=== PATIENT | female | born 1945 | race Caucasian/White ===

== ENCOUNTER 2017-01-29 08:54 | Inpatient (IN) | payer OTHER ==
[~2017-01-29] VITALS: Ht 162.6 cm; Wt 97.4 kg
[~2017-01-29 08:54] MED LIST: ASPI1TAB83 PO; CIPR-255 PO; FURO-85 PO; GLIP-172 PO; METF1000 PO; SIMV20TA2 PO
--- NOTE | 2017-01-29 09:50 | DIAGNOSTIC IMAGING REPORT ---
CT SCAN OF THE BRAIN WITHOUT IV CONTRAST CLINICAL HISTORY: Change in mental status. COMPARISON STUDY: No priors. TECHNIQUE: Unenhanced axial CT scan of the brain is performed from the vertex to the skull base. CT DOSE: 537.48 mGy.cm FINDINGS: Brain parenchyma: There are age-related involutional changes noting mild subcortical and periventricular microangiopathic change. There is mild right temporal encephalomalacia suggest a remote insult. There is no hemorrhage, mass effect, or evidence of acute territorial ischemia by CT criteria. Joy-white matter is preserved. No extra-axial fluid collection is seen. Ventricles, sulci, cisterns: Prominent secondary to involutional change. Intracranial vasculature: There is atherosclerotic calcification of the cavernous carotid arteries. Calvarium: Unremarkable. Sinuses and mastoids: The visualized paranasal sinuses are clear. There is a large right mastoid effusion. Findings suggest previous right mastoid surgery. The left mastoid air cells are well pneumatized. Orbits: The bony orbits are grossly intact. IMPRESSION: There is no hemorrhage, mass effect, or evidence of acute territorial ischemia by CT criteria. Electronically signed by: Ketan Carlson M.D. 01/29/2017 9:49 AM Dictated Date/Time: 01/29/2017 9:41 AM
--- NOTE | 2017-01-29 09:52 | DIAGNOSTIC IMAGING REPORT ---
CHEST ONE VIEW PORTABLE CLINICAL HISTORY: Altered mental status. COMPARISON STUDY: Chest radiograph August 06, 2013. FINDINGS: Lung volumes are normal. There is no pneumothorax or pleural effusion. Cardiomegaly is unchanged. Linear left lung opacity favors atelectasis. There is no evidence of pulmonary edema. There is no consolidation to suggest pneumonia. IMPRESSION: 1. No acute cardiopulmonary findings. 2. Linear left lower lung opacity suggestive of atelectasis. 3. Stable cardiomegaly without evidence of pulmonary edema. Electronically signed by: Carlos Lind M.D. 01/29/2017 9:51 AM Dictated Date/Time: 01/29/2017 9:50 AM
[2017-01-29 10:02] LABS: URINE APPEARANCE CLEAR (CLEAR); URINE BILIRUBIN NEG (NEG); URINE COLOR YELLOW; URINE EPITHELIAL CELL AUTO >30 /lpf (0-5); URINE NITRITE NEG (NEG); URINE SPECIFIC GRAVITY 1.004 (1.000-1.030); UROBILINOGEN NEG (NEG); ZZUR CULT IF INDIC CLEAN CATCH NO
[2017-01-29 10:04] LABS: MANUAL MICROSCOPIC REQUIRED? NO; REVIEW REQ? NO
[2017-01-29] MEDS ORDERED: SITA100T3 PO (10:07)
[2017-01-29] MEDS ORDERED: GLIP5TAB11 PO (10:07)
[2017-01-29] MEDS ORDERED: ATOR-22 PO (10:07)
[2017-01-29 10:24] LABS: BASO % 0.2 %; BASO ABS # 0.02 K/uL (0-0.2); COMPLETE YES; EOS % 0.9 %; HEMATOCRIT 39.9 % (37-47); IG% 0.2 %; LYMPH % 13.6 %; LYMPH ABS # 1.35 K/uL (1.2-3.4); MEAN CELL VOLUME 90.1 fL (80-100); MEAN CORPUSCULAR HEMOGLOBIN 30.5 pg (25-34); MEAN CORPUSCULAR HGB CONC 33.8 g/dl (32-36); MEAN PLATELET VOLUME 8.9 fL (7.4-10.4); MONO % 5.5 %; NEUT % 79.6 %; PLATELET COUNT 347 K/uL (130-400); RED BLOOD COUNT 4.43 M/uL (4.2-5.4)
[2017-01-29 10:36] LABS: PARTIAL THROMBOPLASTIN RATIO 1.1; PROTHROMBIN TIME (PATIENT) 10.7 SECONDS (9.0-12.0)
[2017-01-29 10:40] LABS: BENZODIAZEPINE, URINE NEG (NEG); COCAINE,URINE NEG (NEG); PHENCYCLIDINE, URINE NEG (NEG)
[2017-01-29 10:52] LABS: BUN/CREATININE RATIO 10.8 (10-20); CALCIUM 8.8 mg/dl (8.5-10.1); CREATININE 0.84 mg/dl (0.60-1.20); POTASSIUM 3.7 mmol/L (3.5-5.1)
[2017-01-29 11:03] LABS: ALB/GLOB RATIO 0.8 (0.9-2); THYROID STIMULATING HORMONE 0.854 uIu/ml (0.300-4.500)
--- NOTE | 2017-01-29 11:29 | EMERGENCY ROOM VISIT NOTE ---
History Report prepared by Deniseibakira: Ayse Roman Under the Supervision of: Dr. Brooke Mccord M.D. First contact with patient: 10:27 Chief Complaint: ALTERED MENTAL STATUS Stated Complaint: ALTERED MENTAL STATUS Nursing Triage Summary: Pt arrives ALS from home Family called EMS because patient wsa acting strange this morning. Pt was combative and would not let family check her BSG When medics arrived on scene, pt was acting appropriately, BSG was 228 Pt CAOx4 on arrival to ED. Pt reports she had right frontal headache last night and this morning, but headache has since gone away. History of Present Illness The patient is a 71 year old female who presents to the Emergency Room with complaints of altered mental status that began last night. Per patient's , the patient was seeing things like curtains moving and lights in the floor that her did not see.The patient has been staring blankly into space and not listening this morning. She has never acted that way in the past. This morning she also was pouring her tea and would not stop pouring despite the cup overflowing. She does not have vision loss compared to baseline. She does not have a history of seizures. The patient complains that she has had sharp pain around her right confucianism for the past 3 days. Today, the pain woke her up from her sleep. She had some GI symptoms including vomiting and diarrhea yesterday and the day before, but has not had any symptoms today. She had a fever yesterday which has resolved. Her family has also recently been ill with GI symptoms. Denies numbness, weakness, or other complaints. Past medical history includes type 2 diabetes for which she is on glipizide and metformin. Source of History: patient Onset: today Position: other (global) Quality: other (altered mental status) Timing: other Associated Symptoms: + diarrhea (resolved), + fevers (resolved), + headache (right confucianism pain), + vomiting (resolved), No numbness, No weakness Review of Systems See HPI for pertinent positives & negatives. A total of 10 systems reviewed and were otherwise negative. Past Medical & Surgical Medical Problems: (1) Altered mental status (2) DM (diabetes mellitus) (3) Headache Family History Cancer Diabetes mellitus Social History Smoking Status: Never Smoker Alcohol Use: none Drug Use: none Marital Status: Housing Status: lives with family Occupation Status: retired Current/Historical Medications Scheduled Aspirin (Aspirin), 81 MG PO DAILY Glipizide (Glucotrol), 5 MG PO DAILY Metformin Hcl (Glucophage), 1,000 MG PO BID Simvastatin (Zocor), 20 MG PO QPM Allergies Coded Allergies: No Known Allergies (Unverified , 01/29/17) Physical Exam Vital Signs Date Time Temp Pulse Resp B/P Pulse Ox O2 Delivery O2 Flow Rate FiO2 01/29/17 14:39 80 18 149/75 96 Room Air 01/29/17 13:01 77 18 178/108 98 Room Air 01/29/17 11:05 79 18 160/95 98 Room Air 01/29/17 10:53 74 01/29/17 09:03 37.6 79 20 179/61 95 Room Air Physical Exam Vital signs reviewed. Low-grade fever noted. General: Well-appearing 71 year old female, obese, in no significant distress. HEENT: No scleral icterus, PERRLA, neck supple. Atraumatic. Cardiovascular: Regular rate and rhythm, no extra sounds. Pulmonary: Clear to auscultation bilaterally, normal work of breathing. Abdomen: Soft, nontender, nondistended, positive bowel sounds. Musculoskeletal: Atraumatic, no peripheral edema. Neurologic: Patient awake alert and oriented x 3, full strength in all 4 extremities. Cranial nerves 2 through 12 grossly intact. Skin: Warm, dry, no rash Medical Decision & Procedures ER Provider Diagnostic Interpretation: Radiology results as stated below per my review and radiologist interpretation: CHEST ONE VIEW PORTABLE CLINICAL HISTORY: Altered mental status. COMPARISON STUDY: Chest radiograph August 06, 2013. FINDINGS: Lung volumes are normal. There is no pneumothorax or pleural effusion. Cardiomegaly is unchanged. Linear left lung opacity favors atelectasis. There is no evidence of pulmonary edema. There is no consolidation to suggest pneumonia. IMPRESSION: 1. No acute cardiopulmonary findings. 2. Linear left lower lung opacity suggestive of atelectasis. 3. Stable cardiomegaly without evidence of pulmonary edema. Electronically signed by: Carlos Lind M.D. 01/29/2017 9:51 AM Dictated Date/Time: 01/29/2017 9:[address] SCAN OF THE BRAIN WITHOUT IV CONTRAST CLINICAL HISTORY: Change in mental status. COMPARISON STUDY: No priors. TECHNIQUE: Unenhanced axial CT scan of the brain is performed from the vertex to the skull base. CT DOSE: 537.48 mGy.cm FINDINGS: Brain parenchyma: There are age-related involutional changes noting mild subcortical and periventricular microangiopathic change. There is mild right temporal encephalomalacia suggest a remote insult. There is no hemorrhage, mass effect, or evidence of acute territorial ischemia by CT criteria. Joy-white matter is preserved. No extra-axial fluid collection is seen. Ventricles, sulci, cisterns: Prominent secondary to involutional change. Intracranial vasculature: There is atherosclerotic calcification of the cavernous carotid arteries. Calvarium: Unremarkable. Sinuses and mastoids: The visualized paranasal sinuses are clear. There is a large right mastoid effusion. Findings suggest previous right mastoid surgery. The left mastoid air cells are well pneumatized. Orbits: The bony orbits are grossly intact. IMPRESSION: There is no hemorrhage, mass effect, or evidence of acute territorial ischemia by CT criteria. Electronically signed by: Ketan Carlson M.D. 01/29/2017 9:49 AM Dictated Date/Time: 01/29/2017 9:41 AM Laboratory Results 01/29/17 10:00 Red Blood Count 4.43, Mean Corpuscular Volume 90.1, Mean Corpuscular Hemoglobin 30.5, Mean Corpuscular Hemoglobin Concent 33.8, Mean Platelet Volume 8.9, Neutrophils (%) (Auto) 79.6, Lymphocytes (%) (Auto) 13.6, Monocytes (%) (Auto) 5.5, Eosinophils (%) (Auto) 0.9, Basophils (%) (Auto) 0.2, Neutrophils # (Auto) 7.88, Lymphocytes # (Auto) 1.35, Monocytes # (Auto) 0.54, Eosinophils # (Auto) 0.09, Basophils # (Auto) 0.02 01/29/17 10:00 Test 01/29/17 09:45 01/29/17 09:50 01/29/17 10:00 01/29/17 11:50 Bedside Glucose 136 mg/dl (70-90) Urine Color YELLOW Urine Appearance CLEAR (CLEAR) Urine pH 5.0 (4.5-7.5) Urine Specific Simon 1.004 (1.000-1.030) Urine Protein NEG (NEG) Urine Glucose (UA) NEG (NEG) Urine Ketones NEG (NEG) Urine Occult Blood NEG (NEG) Urine Nitrite NEG (NEG) Urine Bilirubin NEG (NEG) Urine Urobilinogen NEG (NEG) Urine Leukocyte Esterase TRACE (NEG) Urine WBC (Auto) 1-5 /hpf (0-5) Urine RBC (Auto) 0-4 /hpf (0-4) Urine Hyaline Casts (Auto) 1-5 /lpf (0-5) Urine Epithelial Cells (Auto) >30 /lpf (0-5) Urine Bacteria (Auto) NEG (NEG) Urine Opiates Screen NEG (NEG) Urine Methadone, Qualitative NEG (NEG) Urine Barbiturates NEG (NEG) Urine Phencyclidine (PCP) Level NEG (NEG) Ur Amphetamine/Methamphetamine NEG (NEG) MDMA (Ecstasy) Screen NEG (NEG) Urine Benzodiazepines Screen NEG (NEG) Urine Cocaine Metabolite NEG (NEG) Urine Marijuana (THC) NEG (NEG) White Blood Count 9.90 K/uL (4.8-10.8) Red Blood Count 4.43 M/uL (4.2-5.4) Hemoglobin 13.5 g/dL (12.0-16.0) Hematocrit 39.9 % (37-47) Mean Corpuscular Volume 90.1 fL (80-100) Mean Corpuscular Hemoglobin 30.5 pg (25-34) Mean Corpuscular Hemoglobin Concent 33.8 g/dl (32-36) Platelet Count 347 K/uL (130-400) Mean Platelet Volume 8.9 fL (7.4-10.4) Neutrophils (%) (Auto) 79.6 % Lymphocytes (%) (Auto) 13.6 % Monocytes (%) (Auto) 5.5 % Eosinophils (%) (Auto) 0.9 % Basophils (%) (Auto) 0.2 % Neutrophils # (Auto) 7.88 K/uL (1.4-6.5) Lymphocytes # (Auto) 1.35 K/uL (1.2-3.4) Monocytes # (Auto) 0.54 K/uL (0.11-0.59) Eosinophils # (Auto) 0.09 K/uL (0-0.5) Basophils # (Auto) 0.02 K/uL (0-0.2) RDW Standard Deviation 47.9 fL (36.4-46.3) RDW Coefficient of Variation 14.6 % (11.5-14.5) Immature Granulocyte % (Auto) 0.2 % Immature Granulocyte # (Auto) 0.02 K/uL (0.00-0.02) Erythrocyte Sedimentation Rate 57 mm/hr (0-21) Prothrombin Time 10.7 SECONDS (9.0-12.0) Prothromb Time International Ratio 1.0 (0.9-1.1) Activated Partial Thromboplast Time 27.3 SECONDS (21.0-31.0) Partial Thromboplastin Ratio 1.1 Anion Gap 12.0 mmol/L (3-11) Est Creatinine Clear Calc Drug Dose 68.4 ml/min Estimated GFR () 81.0 Estimated GFR (Non- 69.9 BUN/Creatinine Ratio 10.8 (10-20) Calcium Level 8.8 mg/dl (8.5-10.1) Total Bilirubin 0.3 mg/dl (0.2-1) Aspartate Amino Transf (AST/SGOT) 23 U/L (15-37) Alanine Aminotransferase (ALT/SGPT) 33 U/L (12-78) Alkaline Phosphatase 74 U/L (45-117) C-Reactive Protein 1.91 mg/dl (0-0.29) Total Protein 7.4 gm/dl (6.4-8.2) Albumin 3.3 gm/dl (3.4-5.0) Globulin 4.1 gm/dl (2.5-4.0) Albumin/Globulin Ratio 0.8 (0.9-2) Thyroid Stimulating Hormone (TSH) 0.854 uIu/ml (0.300-4.500) Influenza Type A (RT-PCR) Neg for Influ A (NEG) Influenza Type A Antigen Neg for Influ A (NEG) Influenza Type B Antigen Neg for Influ B (NEG) Influenza Type B (RT-PCR) Neg for Influ B (NEG) Test 01/29/17 14:20 CSF Color COLORLESS CSF Appearance CLEAR CSF WBC 3 /uL (0-5) CSF RBC 0 /uL (0) CSF Xanthrochromic NO XANTHOCHROMIA CSF Cell Count Tube # 4 Laboratory results per my review. Medications Administered Medications (Trade) Dose Ordered Sig/Vangie Route Start Time Stop Time Status Last Admin Dose Admin Methylprednisolone Sodium Succinate 125 mg 125 mg NOW STAT IV 01/29/17 12:50 01/29/17 12:51 DC 01/29/17 13:00 125 MG Vancomycin HCl/ Sodium Chloride (Vancomycin Inj/ Nss 500ml) 547 ml @ 205 mls/hr NOW ONCE IV 01/29/17 14:15 01/29/17 16:55 01/29/17 14:33 205 MLS/HR Procedure Lumbar Puncture Indication: Altered mental status, low grade fever. . Verbal consent was obtained after the risks and benefits were explained, including but not limited to headache, bleeding/clotting, scarring, infection, pain, and bone/joint/nerve damage. At this time, the risks of the procedure are less than the risks of NOT performing the procedure. A time out was taken and the correct patient and site identified. The patient was placed in the left lateral decubitus position and the back was prepped with betadine and draped in the standard fashion. The L3 intervertebral space was identified, anesthetized locally with 1% lidocaine without epinephrine, and the spinal needle was inserted through the skin with the bevel parallel to the dural fibers. The needle was carefully advanced into the lumbar cistern and 4 tubes of clear CSF was obtained. The stylet was replaced and the needle was removed. A bandaid was placed and the patient was placed in the supine position. The patient tolerated the procedure well and there were no complications. ECG Indication: altered mental status Rate (beats per minute): 77 Rhythm: normal sinus Findings: no acute ischemic change, no ectopy ED Course 1123: The patient was evaluated in room A2. A complete history and physical examination was performed. 1221: I spoke with Pat Perez PA-C of the [facility]. The patient will be evaluated for further management and care. 1250: Ordered Solu-Medrol 125 mg IV. 1304: I discussed laboratory and radiographic results with the patient and her family. They verbalized agreement of the treatment plan. 1335: I performed a lumbar puncture - see procedure note above. Medical Decision Differential diagnosis: Etiologies such as metabolic, infection, hypoglycemia, electrolyte abnormalities , cardiac sources, intracerebral event, toxicologic, neurologic, as well as others were entertained. This patient was evaluated and appeared to be in no significant distress. IV access was obtained and laboratory work was drawn. The patient was placed on case monitor and found to be in a normal sinus rhythm. CT scan of the head reveals no evidence of acute intracranial pathology. The patient does seem to have returned to baseline. She has a low-grade fever. Blood cultures were sent. Patient complains of a right temporal discomfort. 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 A sedimentation rate and CRP were added to the patient's laboratory work. These are elevated. I did discuss the case with the hospitalist service. Dr. Avelar has suggested a lumbar puncture. This procedure was performed, please see my note above. Patient was given 125 mg of IV Solu-Medrol for the possibility of temporal arteritis. The patient has agreed to stay for further treatment. She and the family are aware of the plan and agree. Consults Time Called: 1215 Consulting Physician: Pat Perez PA-C of the [facility] Returned Call: 1221 I spoke with Pat Perez PA-C of the [facility]. The patient will be evaluated for further management and care. Impression Primary Impression: Altered mental status Scribe Attestation The scribe's documentation has been prepared under my direction and personally reviewed by me in its entirety. I confirm that the note above accurately reflects all work, treatment, procedures, and medical decision making performed by me. Departure Information Dispostion Being Evaluated By Hospitalist Patient Instructions My [facility] Problem Qualifiers Primary Impression: Altered mental status Altered mental status type: delirium Qualified Codes: R41.0 - Disorientation , unspecified
[2017-01-29] MEDS ORDERED: METHYLPREDNISOLONE 125 MG VIAL IV STA (12:50)
[2017-01-29] MEDS ORDERED: ACETAMINOPHEN 325 MG TAB PO PRN (13:15)
[2017-01-29] MEDS ORDERED: ALUMINUM/MAGNESIUM/SIMETH (MAALOX MAX) 30 ML UDC PO PRN (13:15)
[2017-01-29] MEDS ORDERED: GLUCAGON FOR INJ 1 MG VIAL SQ PRN (13:15)
[2017-01-29] MEDS ORDERED: DEXTROSE 50% 50 ML SYR IV PRN (13:15)
[2017-01-29] MEDS ORDERED: MAGNESIUM HYDROXIDE SUSP 30 ML UDC PO PRN (13:15)
[2017-01-29] MEDS ORDERED: GLUCOSE 10 TABS/TUBE PO PRN (13:15)
[2017-01-29] MEDS ORDERED: POLYETHYLENE (MIRALAX) 17 GM PACK PO PRN (13:15)
[2017-01-29] MEDS ORDERED: GLUCOSE 40% GEL 15 GM TUBE PO PRN (13:15)
[2017-01-29] MEDS ORDERED: ONDANSETRON INJ 2 MG/ML 2 ML VIAL IV PRN (13:15)
[2017-01-29] MEDS ORDERED: PHARMACY GLYCEMIC MGMT CONSULT SCH (13:47)
[2017-01-29 13:54] LABS: INFLUENZA A PCR Neg for Influ A (NEG); INFLUENZA B PCR Neg for Influ B (NEG)
[2017-01-29] MEDS ORDERED: VANCOMYCIN INJ 2,350 MG in SODIUM CHLORIDE 0.9% 500ML 500 ML IV ONE (14:15)
--- NOTE | 2017-01-29 14:19 | Pharmacy Progress Note ---
Glycemic Control Intl Consult Date of Service Jan 29, 2017. Scope Glycemic Pharmacist consulted by Dr Avelar on 01/29/17 for glycemic control and to write orders per [facility] inpatient glycemic control protocol Objective Weight (Kilograms): 94.300 Accuchecks BSG (last 24hrs): Test 01/29/17 09:45 01/29/17 10:00 Bedside Glucose 136 mg/dl (70-90) Random Glucose 133 mg/dl (70-99) Laboratory Data (last 24hrs) Test 01/29/17 10:00 Anion Gap 12.0 mmol/L BUN/Creatinine Ratio 10.8 Blood Urea Nitrogen 9 mg/dl Creatinine 0.84 mg/dl Potassium Level 3.7 mmol/L Sodium Level 136 mmol/L White Blood Count 9.90 K/uL Red Blood Count 4.43 M/uL Hemoglobin 13.5 g/dL Hematocrit 39.9 % Mean Corpuscular Volume 90.1 fL Mean Corpuscular Hemoglobin 30.5 pg Mean Corpuscular Hemoglobin Concent 33.8 g/dl Platelet Count 347 K/uL Mean Platelet Volume 8.9 fL Neutrophils (%) (Auto) 79.6 % Lymphocytes (%) (Auto) 13.6 % Monocytes (%) (Auto) 5.5 % Eosinophils (%) (Auto) 0.9 % Basophils (%) (Auto) 0.2 % Neutrophils # (Auto) 7.88 K/uL Lymphocytes # (Auto) 1.35 K/uL Monocytes # (Auto) 0.54 K/uL Eosinophils # (Auto) 0.09 K/uL Basophils # (Auto) 0.02 K/uL Recent Pertinent Medications Outpatient Anti-diabetic Regimen: * metformin 1000 mg PO BID with meals * glipizide 5mg PO daily * A1c = unknown at time of consult The patient is currently receiving: * Basal insulin: Lantus 5 units every 12 hours * Correctional Insulin: Novolog Correction per scale ACHS Goal Range: Low 110 mg/dL - High 150 mg/dL Correction Factor: 25 mg/dL/unit * Prandial insulin: Per carb ratio of 1 unit per 15 grams CHO consumed Risk Factors for Insulin Resistance: * Steroids: Solu-Medrol 125mg IV x1 dose in ED around 13:00, then Solu-Medrol 60mg IV daily * Infection: ?meningitis - started on vancomycin, ceftriaxone, and ampicillin IV * Pressors: none at this time * IVF: NSS * Diet: T1DM diet in ED Assessment & Plan ASSESSMENT: * ADA & AACE recommend a goal blood sugar range 140-180 mg/dl for the majority of critically ill & non-critically ill patients. However, more stringent targets may be selected in individual cases. 01/29/17 * 71 y/o type 2 diabetic who uses oral medications as an outpatient to treat her diabetes was found in an altered mental state this AM * recent complains of headache as well as vomiting and diarrhea BARN BOSS * BSG BARN BOSS 228mg/dL * Currently, the patient is being treated empirically for meningitis with steroids and broad-spectrum ABX * both of these factors may increase BSGs * A1c is unknown at time of consult * or with AM labs to assess home DM regimen * oral meds will be held at admission secondary to acute illness * begin basal/bolus insulin regimen (already done by admitting provider) PLAN FOR INPATIENT GLYCEMIC CONTROL: * Lantus SQ BID * 0 units if BSG is below 120mg/dL * 5 units if BSG is 120-160mg/dL * 10 units if BSG is above 160mg/dL * NovoLog SQ AC and HS * Correction factor - continue 25mg/dL/unit * Carb ratio - tighten to 1:8 since steroids ordered * Goal range - increase to 140-180mg/dL per ADA recommendations * Oral medications * hold on admission * A1c - order with AM labs * add to discharge instructions * Please note that the plan above was derived based on current level of insulin resistance and hospital stress. These recommendations are appropriate for inpatient admission only. Plan of care upon discharge will need to be reassessed to avoid potential outpatient hypo/hyperglycemia. Thank you.
--- NOTE | 2017-01-29 14:23 | History and Physical ---
History & Physical Date & Time of Service: Jan 29, 2017 at 14:07 Chief Complaint: Altered Mental Status Primary Care Physician: Jesús Ford M.D. History of Present Illness Source: patient, family, clinic records This is a 71 year old female with PMH of DM2, HLD presents with confusion, altered mental status, headache - she was brought in by her who stated that for the past day, she has been acting differently - she initially started with some hallucinations; seeing things that were not there. She also now developed a severe frontal/right sided headache. As per , she was pouring her tea in her cup this morning, and kept pouring even when the cup was full - she had a blank stare on her face and was not responding. States that she had been sick the past few days - worsening nausea/vomiting the past few days. Currently, she denies any confusion - only complaint now is a headache. Past Medical/Surgical History Medical Problems: (1) DM (diabetes mellitus) Status: Chronic Family History Cancer Diabetes mellitus Social History Smoking Status: Never Smoker Drug Use: none Marital Status: Occupational Status: retired Immunizations History of Influenza Vaccine: Unknown History of Tetanus Vaccine?: Unknown History of Pneumococcal: Unknown History of Hepatitis B Vaccine: Unknown Allergies Coded Allergies: No Known Allergies (Unverified , 01/29/17) Home Medications Scheduled Aspirin (Aspirin), 81 MG PO DAILY Glipizide (Glucotrol), 5 MG PO DAILY Metformin Hcl (Glucophage), 1,000 MG PO BID Simvastatin (Zocor), 20 MG PO QPM Review of Systems Constitutional: + chills, + fever, + weakness, No fatigue, No sweats, No weight loss Eyes: + problem reported (+headache), No diplopia, No eye pain ENT: No hearing loss Respiratory: No cough, No dyspnea at rest, No dyspnea on exertion, No hemoptysis, No shortness of breath, No sputum, No wheezing Cardiovascular: No chest pain, No claudication, No edema, No orthopnea, No palpitations Abdomen: + nausea, + vomiting, No GI bleeding, No constipation, No diarrhea, No pain Musculoskeletal: No calf pain, No joint pain, No muscle pain, No swelling Genitourinary - Female: No dysuria, No hematuria, No urinary frequency, No urinary incontinence, No urinary retention, No urinary urgency Neurologic: + memory loss, No balance problems, No numbness/tingling, No paralysis, No vertigo, No weakness Psychiatric: No anhedonism, No anxiety, No depression symptoms, No insomnia, No substance abuse Endocrine: No fatigue Hematologic / Lymphatic: No abnormal bleeding/bruising Integumentary: No itch, No rash Allergic / Immunologic: No environmental allergies, No seasonal allergies Physical Exam Vital Signs Date Time Temp Pulse Resp B/P Pulse Ox O2 Delivery O2 Flow Rate FiO2 01/29/17 13:01 77 18 178/108 98 Room Air 01/29/17 11:05 79 18 160/95 98 Room Air 01/29/17 10:53 74 01/29/17 09:03 37.6 79 20 179/61 95 Room Air General Appearance: no apparent distress Head: normocephalic, atraumatic, + pertinent finding (tenderness to palpation at the frontal/right sided head) Respiratory/Chest: chest non-tender, lungs clear, normal breath sounds, no respiratory distress, no accessory muscle use Cardiovascular: regular rate, rhythm, no edema, no murmur Abdomen/GI: normal bowel sounds, non tender, soft Extremities/Musculoskelatal: no calf tenderness, normal capillary refill, no pedal edema Neurologic/Psych: acidizer II-XII nml as tested, no motor/sensory deficits, alert, normal mood/affect, oriented x 3 Skin: normal color Lymphatic: no adenopathy Diagnostics Laboratory Results Results Past 24 Hours Test 01/29/17 09:45 01/29/17 09:50 01/29/17 10:00 01/29/17 11:50 Range/Units Bedside Glucose 136 70-90 mg/dl Urine Color YELLOW Urine Appearance CLEAR CLEAR Urine pH 5.0 4.5-7.5 Urine Specific [place] 1.004 1.000-1.030 Urine Protein NEG NEG Urine Glucose (UA) NEG NEG Urine Ketones NEG NEG Urine Occult Blood NEG NEG Urine Nitrite NEG NEG Urine Bilirubin NEG NEG Urine Urobilinogen NEG NEG Urine Leukocyte Esterase TRACE NEG Urine WBC (Auto) 1-5 0-5 /hpf Urine RBC (Auto) 0-4 0-4 /hpf Urine Hyaline Casts (Auto) 1-5 0-5 /lpf Urine Epithelial Cells (Auto) >30 0-5 /lpf Urine Bacteria (Auto) NEG NEG Urine Opiates Screen NEG NEG Urine Methadone, Qualitative NEG NEG Urine Barbiturates NEG NEG Urine Phencyclidine (PCP) Level NEG NEG Ur Amphetamine/Methamphetamine NEG NEG MDMA (Ecstasy) Screen NEG NEG Urine Benzodiazepines Screen NEG NEG Urine Cocaine Metabolite NEG NEG Urine Marijuana (THC) NEG NEG White Blood Count 9.90 4.8-10.8 K/uL Red Blood Count 4.43 4.2-5.4 M/uL Hemoglobin 13.5 12.0-16.0 g/dL Hematocrit 39.9 37-47 % Mean Corpuscular Volume 90.1 80-100 fL Mean Corpuscular Hemoglobin 30.5 25-34 pg Mean Corpuscular Hemoglobin Concent 33.8 32-36 g/dl Platelet Count 347 130-400 K/uL Mean Platelet Volume 8.9 7.4-10.4 fL Neutrophils (%) (Auto) 79.6 % Lymphocytes (%) (Auto) 13.6 % Monocytes (%) (Auto) 5.5 % Eosinophils (%) (Auto) 0.9 % Basophils (%) (Auto) 0.2 % Neutrophils # (Auto) 7.88 1.4-6.5 K/uL Lymphocytes # (Auto) 1.35 1.2-3.4 K/uL Monocytes # (Auto) 0.54 0.11-0.59 K/uL Eosinophils # (Auto) 0.09 0-0.5 K/uL Basophils # (Auto) 0.02 0-0.2 K/uL RDW Standard Deviation 47.9 36.4-46.3 fL RDW Coefficient of Variation 14.6 11.5-14.5 % Immature Granulocyte % (Auto) 0.2 % Immature Granulocyte # (Auto) 0.02 0.00-0.02 K/uL Erythrocyte Sedimentation Rate 57 0-21 mm/hr Prothrombin Time 10.7 9.0-12.0 SECONDS Prothromb Time International Ratio 1.0 0.9-1.1 Activated Partial Thromboplast Time 27.3 21.0-31.0 SECONDS Partial Thromboplastin Ratio 1.1 Sodium Level 136 136-145 mmol/L Potassium Level 3.7 3.5-5.1 mmol/L Chloride Level 102 98-107 mmol/L Carbon Dioxide Level 22 21-32 mmol/L Anion Gap 12.0 3-11 mmol/L Blood Urea Nitrogen 9 7-18 mg/dl Creatinine 0.84 0.60-1.20 mg/dl Est Creatinine Clear Calc Drug Dose 68.4 ml/min Estimated GFR () 81.0 Estimated GFR (Non- 69.9 BUN/Creatinine Ratio 10.8 10-20 Random Glucose 133 70-99 mg/dl Calcium Level 8.8 8.5-10.1 mg/dl Total Bilirubin 0.3 0.2-1 mg/dl Aspartate Amino Transf (AST/SGOT) 23 15-37 U/L Alanine Aminotransferase (ALT/SGPT) 33 12-78 U/L Alkaline Phosphatase 74 45-117 U/L C-Reactive Protein 1.91 0-0.29 mg/dl Total Protein 7.4 6.4-8.2 gm/dl Albumin 3.3 3.4-5.0 gm/dl Globulin 4.1 2.5-4.0 gm/dl Albumin/Globulin Ratio 0.8 0.9-2 Thyroid Stimulating Hormone (TSH) 0.854 0.300-4.500 uIu/ml Influenza Type A (RT-PCR) Neg for Influ A NEG Influenza Type A Antigen Neg for Influ A NEG Influenza Type B Antigen Neg for Influ B NEG Influenza Type B (RT-PCR) Neg for Influ B NEG Test 01/29/17 13:12 01/29/17 13:13 Range/Units Microbiology Results 01/29/17 Gram Stain, Mich Batch Pending 01/29/17 CSF Culture, Mich Batch Pending Diagnostic Radiology CHEST ONE VIEW PORTABLE CLINICAL HISTORY: Altered mental status. COMPARISON STUDY: Chest radiograph August 06, 2013. FINDINGS: Lung volumes are normal. There is no pneumothorax or pleural effusion. Cardiomegaly is unchanged. Linear left lung opacity favors atelectasis. There is no evidence of pulmonary edema. There is no consolidation to suggest pneumonia. IMPRESSION: 1. No acute cardiopulmonary findings. 2. Linear left lower lung opacity suggestive of atelectasis. 3. Stable cardiomegaly without evidence of pulmonary edema. CT SCAN OF THE BRAIN WITHOUT IV CONTRAST CLINICAL HISTORY: Change in mental status. COMPARISON STUDY: No priors. TECHNIQUE: Unenhanced axial CT scan of the brain is performed from the vertex to the skull base. CT DOSE: 537.48 mGy.cm FINDINGS: Brain parenchyma: There are age-related involutional changes noting mild subcortical and periventricular microangiopathic change. There is mild right temporal encephalomalacia suggest a remote insult. There is no hemorrhage, mass effect, or evidence of acute territorial ischemia by CT criteria. Joy-white matter is preserved. No extra-axial fluid collection is seen. Ventricles, sulci, cisterns: Prominent secondary to involutional change. Intracranial vasculature: There is atherosclerotic calcification of the cavernous carotid arteries. Calvarium: Unremarkable. Sinuses and mastoids: The visualized paranasal sinuses are clear. There is a large right mastoid effusion. Findings suggest previous right mastoid surgery. The left mastoid air cells are well pneumatized. Orbits: The bony orbits are grossly intact. IMPRESSION: There is no hemorrhage, mass effect, or evidence of acute territorial ischemia by CT criteria. Normal EKG Impression Assessment and Plan This is a 71 year old female with PMH of DM2, HLD presents with confusion, altered mental status, headache Altered Mental Status +confusion, +fever, +headache will obtain LP to r/o meningitis empiric antibiotics for now until LP results return possibly related to hypoglycemia - patient has not been able to keep her oral medications down Head CT is negative significant headache, and ESR > 50 possible temporal arteritis? start IV steroids, vascular surgery consult for biopsy ordered an EEG - r/o absence seizures will consult neurology DM2 hold oral medications Lantus + sliding scale started on high dose steroids secondary to above Ha1c pending glycemic control consult HLD continue statin DVT ppx SCDs FULL CODE VTE Prophylaxis VTE Risk Assessment Done? Y/N: Yes Risk Level: Moderate
[2017-01-29 14:37] LABS: CSF APPEARANCE CLEAR; CSF COLOR COLORLESS; CSF XANTHOCHROMIC NO XANTHOCHROMIA
[2017-01-29 14:54] LABS: CSF TOTAL PROTEIN 48.9 mg/dl (15.0-45.0)
[2017-01-29 14:58] LABS: CSF CHEMISTRY TUBE # 2
[2017-01-29] MEDS ORDERED: VANCOMYCIN CONSULT ACTIVE PRN (15:00)
--- NOTE | 2017-01-29 15:45 | Pharmacy Progress Note ---
Pharmacy Antibiotic Consult Date of Service: Jan 29, 2017. Pharmacy Dosing Scope Pharmacy is consulted to initiate vancomycin IV dosing therapy, order appropriate labs and adjust drug dose/frequency. Subjective The patient is a 71 year old female admitted on 01/29/17 for a change in mental status. There is concern for meningitis. Objective Height (Feet): 5 Height (Inches): 4.00 Weight (Kilograms): 94.300 Lab Results (24hrs): Laboratory Tests Test 01/29/17 10:00 BUN/Creatinine Ratio 10.8 Blood Urea Nitrogen 9 mg/dl Creatinine 0.84 mg/dl White Blood Count 9.90 K/uL Red Blood Count 4.43 M/uL Hemoglobin 13.5 g/dL Hematocrit 39.9 % Mean Corpuscular Volume 90.1 fL Mean Corpuscular Hemoglobin 30.5 pg Mean Corpuscular Hemoglobin Concent 33.8 g/dl Platelet Count 347 K/uL Mean Platelet Volume 8.9 fL Neutrophils (%) (Auto) 79.6 % Lymphocytes (%) (Auto) 13.6 % Monocytes (%) (Auto) 5.5 % Eosinophils (%) (Auto) 0.9 % Basophils (%) (Auto) 0.2 % Neutrophils # (Auto) 7.88 K/uL Lymphocytes # (Auto) 1.35 K/uL Monocytes # (Auto) 0.54 K/uL Eosinophils # (Auto) 0.09 K/uL Basophils # (Auto) 0.02 K/uL Micro Results: RUN DATE: 01/29/17 [facility] PAGE 1 RUN TIME: 1501 Specimen Inquiry PATIENT: ANGEL COSBY LOC: [facility] U # : [id number] AGE/SX: 71/F ROOM: REG : 01/29/[address]: Brooke Mccord, : 1945 BED: DIS : STATUS: REG ER TLOC: SPEC #: [id number] ANT: 01/29/17 STATUS: RES REQ #: [id number] RECD: 01/29/[address]: Brooke Mccord M.D. SOURCE: CSF ENTR: 01/29/17-[address]: Fannie Perez PA-C SPDESC: Jesús Ford M.D. ORDERED: CSF CULT/SMR COMMENTS: Comments to General Foreman TUBE # 3 TUBE # TO USE FOR SPINAL FLUID CELL CULTURE= 3 Procedure Result Verified Site GRAM STAIN Final 01/29/17-1501 RESULT NO ORGANISMS SEEN RARE WBCs SEEN CSF CULTURE PENDING Recent Pertinent Medications Rocephin 2 gm IV q12 hours Ampicillin 2 gm IV q4 hours Assessment & Plan Loading dose: vancomycin 2350 mg IV X 1 dose then: vancomycin 1400 mg IV every 12 hours (population pharmacokinetics suggest a half-life of 11.55 hr-1 with an elimination constant of 0.06 hr-1). Goal peak level estimate: between 35 - 40 mcg/mL. Goal trough level estimate: between 15 - 20 mcg/mL (indication = meningitis). Trough has been ordered for: prior to 0200 dose. Pharmacy will continue to follow and will adjust dose/frequency as necessary. Thank you
[2017-01-29 17:15] VITALS: BP 164/68; PULSE 82; TEMP 37.4; O2SAT 93; BMI 35.4
[2017-01-29] MEDS: SODIUM CHLORIDE 0.9% 1000ML 1,000 ML IV SCH (17:57)
[2017-01-29] MEDS: AMPICILLIN INJ 2,000 MG in SODIUM CHLORIDE 0.9% 50ML 50 ML IV SCH ×2 (17:57→23:42)
[2017-01-29] MEDS: CEFTRIAXONE SOD INJ 2,000 MG in DEXTROSE 5% 50ML 50 ML IV SCH (19:13)
--- NOTE | 2017-01-29 19:32 | Neurology Consultation ---
Neurology Consultation Date of Consultation: Jan 29, 2017. Attending Physician: David Adams MD Primary Care Physician: Jesús Ford M.D. Reason for Consultation: MS change headache fever History of Present Illness Jessica is a 71 year old female with PMH of DM2, hyperlipidemia presents with confusion, altered mental status, headache. her states she had been sick and vomiting since Saturday after taking care of her grandchildren that were ill. The night prior to her admission she was seeing flashing lights on the floor and she thought the curtain move in the living room which she remembers both event. seeing things that were not there. She stayed up to make rice crispy treats for her grandkids and then the next morning made muffins. Her states she sat down at the kitchen table and was pouring tea into her cup and let it over flow. she remembers doing this and that her started yelling at her to stop. she then developed a headache which she states has now resolved. denies CP, SOB, abdominal pain, weakness, numbness tingling-one sided , current N, V, vision changes, confusion. Her thinks she is at her baseline. Past Medical/Surgical History Medical Problems: (1) Temporal arteritis Status: Acute Social History Smoking Status: Never smoker Drug Use: none Marital Status: Housing Status: lives with family Occupation Status: retired Allergies Coded Allergies: No Known Allergies (Unverified , 01/29/17) Current Inpatient Medications Current Inpatient Medications Medications (Trade) Dose Ordered Sig/Vangie Route Start Time Stop Time Status Last Admin Dose Admin Sodium Chloride (Nss 1000ml) 1,000 ml @ 80 mls/hr [id number] IV 01/29/17 17:00 02/28/17 16:59 01/29/17 17:57 80 MLS/HR Acetaminophen (Tylenol Tab) 650 mg Q4H PRN PO 01/29/17 13:15 02/28/17 13:14 Al Hydrox/Mg Hydrox/Simethicone (Maalox Max Susp) 15 ml Q4H PRN PO 01/29/17 13:15 02/28/17 13:14 Magnesium Hydroxide (Milk Of Magnesia Susp) 30 ml Q12H PRN PO 01/29/17 13:15 02/28/17 13:14 Ondansetron HCl (Zofran Inj) 4 mg Q6H PRN IV 01/29/17 13:15 02/28/17 13:14 Polyethylene (Miralax Powder Packet) 17 gm DAILY PRN PO 01/29/17 13:15 02/28/17 13:14 Insulin Glargine (Lantus Solostar Pen) SEE PROTOCOL BID SC 01/29/17 21:00 02/28/17 20:59 Insulin Aspart (novoLOG ASPART) SLIDING SCALE If C... ACHS SC 01/29/17 21:00 02/28/17 20:59 Glucose (Glucose 40% Gel) 15-30 GRAMS 15 GRAMS... UD PRN PO 01/29/17 13:15 02/28/17 13:14 Glucose (Glucose Chew Tab) 4-8 Tablets 4 Tabl... UD PRN PO 01/29/17 13:15 02/28/17 13:14 Dextrose (Dextrose 50% 50ML Syringe) 25-50ML OF 50% DW IV FOR... UD PRN IV 01/29/17 13:15 02/28/17 13:14 Glucagon (Glucagon Inj) 1 mg UD PRN SQ 01/29/17 13:15 02/28/17 13:14 Miscellaneous Information 1 ea 1 ea UD N/A 01/29/17 13:47 02/28/17 13:46 Methylprednisolone Sodium Succinate 60 mg/Syringe 0.96 ml @ 1.5 mls/min DAILY IV 01/30/17 09:00 03/01/17 08:59 Vancomycin HCl 1400 mg/Sodium Chloride 528 ml @ 200 mls/hr Q12H IV 01/30/17 02:00 02/08/17 13:59 Ceftriaxone Sodium 2000 mg/ Dextrose 70 ml @ 100 mls/hr Q12@0800,2000 IV 01/29/17 20:00 02/08/17 19:59 Ampicillin Sodium/ Sodium Chloride (Ampicillin Inj/ Nss 50ml) 58 ml @ 100 mls/hr Q4@0200,0600,1000,1400,1800,2200 IV 01/29/17 18:00 02/08/17 17:59 01/29/17 17:57 100 MLS/HR Simvastatin (Zocor Tab) 20 mg QPM PO 01/29/17 21:00 02/28/17 20:59 Vancomycin HCl (Consult) 1 ea UD PRN N/A 01/29/17 15:00 02/28/17 14:59 Physical Exam Vital Signs (Past 24 Hrs): Date Time Temp Pulse Resp B/P Pulse Ox O2 Delivery O2 Flow Rate FiO2 01/29/17 17:15 37.4 82 16 164/68 93 Room Air 01/29/17 16:49 89 20 133/63 96 Room Air 01/29/17 15:36 83 20 133/83 94 Room Air 01/29/17 14:39 80 18 149/75 96 Room Air 01/29/17 13:01 77 18 178/108 98 Room Air 01/29/17 11:05 79 18 160/95 98 Room Air 01/29/17 10:53 74 01/29/17 09:03 37.6 79 20 179/61 95 Room Air Physical Exam: Constitutional: appearance nourished, healthy and obese Ears breakdown of 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) Cardiovascular: normal S-1 and S-2 and regular rate and rhythm Respiratory: clear to auscultation (CTA) and no rales, rhonchi or wheeze Musculoskeletal: no peripheral edema and good distal pulses Skin: no stigmata of neurocutaneous disease noted and normal and intact Eyes: extraocular muscles intact (EOMI) and pupils equal, round and reactive to light (PERRL), good vascular pulsations, disc flat NEUROLOGIC EXAMINATION: Mental status: Alert and interactive Oriented to full date and location Oriented to person Speech fluent with no evidence of aphasia Cranial Nerves slight asymmetry to eye brow raise decreased on right, smile symmetry, tongue midline Reflexes: Deep tendon reflexes were symmetrical and graded 2/5. Plantar responses were neutral Sensory: no deficit to vibration, cool, GT proprioception intact bilaterally Coordination: finger to nose without bi pass no tremor Gait/Stance: Posture normal. Gait normal: with steady with steps, base, turning, and tandem gait. Motor: Negative for pronator drift of out stretched arms with eyes closed. 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, hip flex plantar flex ext bilaterally 5/5 Laboratory Results Past 24 Hours: 01/29/17 10:00 Red Blood Count 4.43, Mean Corpuscular Volume 90.1, Mean Corpuscular Hemoglobin 30.5, Mean Corpuscular Hemoglobin Concent 33.8, Mean Platelet Volume 8.9, Neutrophils (%) (Auto) 79.6, Lymphocytes (%) (Auto) 13.6, Monocytes (%) (Auto) 5.5, Eosinophils (%) (Auto) 0.9, Basophils (%) (Auto) 0.2, Neutrophils # (Auto) 7.88, Lymphocytes # (Auto) 1.35, Monocytes # (Auto) 0.54, Eosinophils # (Auto) 0.09, Basophils # (Auto) 0.02 01/29/17 10:00 Test 01/29/17 09:50 01/29/17 10:00 01/29/17 11:50 01/29/17 14:20 Urine Color YELLOW Urine Appearance CLEAR (CLEAR) Urine pH 5.0 (4.5-7.5) Urine Specific [place] 1.004 (1.000-1.030) Urine Protein NEG (NEG) Urine Glucose (UA) NEG (NEG) Urine Ketones NEG (NEG) Urine Occult Blood NEG (NEG) Urine Nitrite NEG (NEG) Urine Bilirubin NEG (NEG) Urine Urobilinogen NEG (NEG) Urine Leukocyte Esterase TRACE (NEG) Urine WBC (Auto) 1-5 /hpf (0-5) Urine RBC (Auto) 0-4 /hpf (0-4) Urine Hyaline Casts (Auto) 1-5 /lpf (0-5) Urine Epithelial Cells (Auto) >30 /lpf (0-5) Urine Bacteria (Auto) NEG (NEG) Urine Opiates Screen NEG (NEG) Urine Methadone, Qualitative NEG (NEG) Urine Barbiturates NEG (NEG) Urine Phencyclidine (PCP) Level NEG (NEG) Ur Amphetamine/Methamphetamine NEG (NEG) MDMA (Ecstasy) Screen NEG (NEG) Urine Benzodiazepines Screen NEG (NEG) Urine Cocaine Metabolite NEG (NEG) Urine Marijuana (THC) NEG (NEG) White Blood Count 9.90 K/uL (4.8-10.8) Red Blood Count 4.43 M/uL (4.2-5.4) Hemoglobin 13.5 g/dL (12.0-16.0) Hematocrit 39.9 % (37-47) Mean Corpuscular Volume 90.1 fL (80-100) Mean Corpuscular Hemoglobin 30.5 pg (25-34) Mean Corpuscular Hemoglobin Concent 33.8 g/dl (32-36) Platelet Count 347 K/uL (130-400) Mean Platelet Volume 8.9 fL (7.4-10.4) Neutrophils (%) (Auto) 79.6 % Lymphocytes (%) (Auto) 13.6 % Monocytes (%) (Auto) 5.5 % Eosinophils (%) (Auto) 0.9 % Basophils (%) (Auto) 0.2 % Neutrophils # (Auto) 7.88 K/uL (1.4-6.5) Lymphocytes # (Auto) 1.35 K/uL (1.2-3.4) Monocytes # (Auto) 0.54 K/uL (0.11-0.59) Eosinophils # (Auto) 0.09 K/uL (0-0.5) Basophils # (Auto) 0.02 K/uL (0-0.2) RDW Standard Deviation 47.9 fL (36.4-46.3) RDW Coefficient of Variation 14.6 % (11.5-14.5) Immature Granulocyte % (Auto) 0.2 % Immature Granulocyte # (Auto) 0.02 K/uL (0.00-0.02) Erythrocyte Sedimentation Rate 57 mm/hr (0-21) Prothrombin Time 10.7 SECONDS (9.0-12.0) Prothromb Time International Ratio 1.0 (0.9-1.1) Activated Partial Thromboplast Time 27.3 SECONDS (21.0-31.0) Partial Thromboplastin Ratio 1.1 Anion Gap 12.0 mmol/L (3-11) Est Creatinine Clear Calc Drug Dose 68.4 ml/min Estimated GFR () 81.0 Estimated GFR (Non- 69.9 BUN/Creatinine Ratio 10.8 (10-20) Calcium Level 8.8 mg/dl (8.5-10.1) Total Bilirubin 0.3 mg/dl (0.2-1) Aspartate Amino Transf (AST/SGOT) 23 U/L (15-37) Alanine Aminotransferase (ALT/SGPT) 33 U/L (12-78) Alkaline Phosphatase 74 U/L (45-117) C-Reactive Protein 1.91 mg/dl (0-0.29) Total Protein 7.4 gm/dl (6.4-8.2) Albumin 3.3 gm/dl (3.4-5.0) Globulin 4.1 gm/dl (2.5-4.0) Albumin/Globulin Ratio 0.8 (0.9-2) Thyroid Stimulating Hormone (TSH) 0.854 uIu/ml (0.300-4.500) Influenza Type A (RT-PCR) Neg for Influ A (NEG) Influenza Type A Antigen Neg for Influ A (NEG) Influenza Type B Antigen Neg for Influ B (NEG) Influenza Type B (RT-PCR) Neg for Influ B (NEG) CSF Color COLORLESS CSF Appearance CLEAR CSF WBC 3 /uL (0-5) CSF RBC 0 /uL (0) CSF Xanthrochromic NO XANTHOCHROMIA CSF Cell Count Tube # 4 CSF Chemistry Tube # 2 CSF Glucose 75 mg/dl (40-70) CSF Total Protein 48.9 mg/dl (15.0-45.0) Test 01/29/17 17:09 Bedside Glucose 278 mg/dl (70-90) Imaging CT head- There is no hemorrhage, mass effect, or evidence of acute territorial ischemia by CT criteria. CXR- No acute cardiopulmonary findings. Linear left lower lung opacity suggestive of atelectasis. Stable cardiomegaly without evidence of pulmonary edema. Impression 71 year old female with fever, MS change after flu -like symptoms Plan 1. MRI with and without brain-for any lesions or structure issues 2. carotid doppler evaluation of vascular issues that may cause visual flashing lights 3. EEG pending 4. no evidence of infection from LP -CSF evaluation 5. medical management per primary team 6. increased sed rate primary team pursuing temp arteritis steroids given in ED 7. further recommendations once MRI and carotids , EEG completed I have seen and discussed above patient with Dr Mary Cifuentes, neurology Pt seen and examined. Pt appears to have a vascular headache associated with a flu-like illness. Pt much improved. I do not think pt needs a temporal artery biopsy. LIZZETH Cifuentes MD
[2017-01-29 20:00] VITALS: BP 153/78; PULSE 98; TEMP 36.5; O2SAT 92
[2017-01-29] MEDS: SIMVASTATIN 20 MG TAB PO SCH (20:44)
[2017-01-29] MEDS: INSULIN GLARGINE SOLOSTAR 100 UNITS/ML 3 ML PEN SC SCH (20:46)
[2017-01-29] MEDS: INSULIN ASPART 100 UNITS/ML 3 ML PEN SC SCH (20:47)
[2017-01-29] MEDS ORDERED: INFLUENZA VIRUS QUAD VACCINE 0.5 ML SYR IM. ONE (22:00)
[2017-01-29] MEDS ORDERED: INFLUENZA ADMINISTRATION CHARGE ONE (22:00)
[2017-01-29] MEDS ORDERED: GADAVIST IV PRN (22:15)
--- NOTE | 2017-01-29 22:35 | DIAGNOSTIC IMAGING REPORT ---
MRI OF THE BRAIN WITHOUT AND WITH IV CONTRAST CLINICAL HISTORY: Mental status change. Fever, visual disturbances. History of right ear cancer. COMPARISON STUDY: CT scan dated 01/29/2017. TECHNIQUE: MRI of the brain was performed from the vertex to the skull base utilizing various T1 and T2 weighted sequences. Following the IV administration of 9 mL of Gadavist contrast, additional enhanced images were obtained. FINDINGS: Sagittal T1, axial diffusion, proton density and T2 weighted axial, coronal FLAIR, and pre and post axial T1-weighted images were acquired. These were supplemented with post gadolinium coronal T1 weighted images. No intra or extra-axial mass lesions are visualized. There is mild restricted diffusion in the right temporal lobe. There is no evidence of ventricular dilatation. Proton density T2-weighted and FLAIR images reveal foci of increased T2 and FLAIR signal within the right temporal lobe. There appears to be volume loss with dilatation of the right temporal horn. There are no abnormal flow voids. There are postsurgical changes involving the right ear. There is a right mastoid effusion. There is gyriform enhancement in the right temporal region. This could be neoplastic, infectious, or less likely secondary to prior infarction. IMPRESSION: 1. Postsurgical changes involving the right ear 2. Mild restricted diffusion involving the right temporal lobe. There is also increased T2 and FLAIR signal in the region with evidence of volume loss and right temporal horn dilatation 3. Right temporal lobe gyriform enhancement. This could be neoplastic, infectious, or less likely secondary to prior infarction Electronically signed by: Flip Delatorre M.D. 01/29/2017 10:34 PM Dictated Date/Time: 01/29/2017 10:26 PM
--- NOTE | 2017-01-29 23:08 | DIAGNOSTIC IMAGING REPORT ---
ULTRASOUND OF THE CAROTID ARTERIES CLINICAL HISTORY: L status change in visual disturbances. COMPARISON STUDY: None. TECHNIQUE: Real-time, grayscale, and color Doppler sonography of the carotid arteries was performed. Imaging reviewed in the transverse and longitudinal planes. NASCET criteria was utilized for stenosis calcification. FINDINGS: There is mild atherosclerotic plaque present . The peak systolic velocity within the right internal carotid artery is 78 cm/sec. The systolic velocity ratio of right internal to common carotid artery is 0.9. The peak systolic velocity within the left internal carotid artery is 89 cm/sec. The systolic velocity ratio left internal to common carotid artery is 0.6. Antegrade flow is seen in the vertebral arteries. The external carotid arteries are patent. Blood pressure in the right arm measured 144 mm/Hg. Blood pressure in the left arm measured 144 mm/Hg. IMPRESSION: No evidence of hemodynamically significant carotid stenosis. Electronically signed by: Flip Delatorre M.D. 01/29/2017 11:06 PM Dictated Date/Time: 01/29/2017 11:05 PM
[2017-01-30] VITALS (9 sets, daily range): BP systolic 145–168; BP diastolic 60–86; PULSE 63–75; TEMP 36.5–36.9; O2SAT 93–95; Ht 162.6 cm; Wt 97.4 kg
[2017-01-30] MEDS: AMPICILLIN INJ 2,000 MG in SODIUM CHLORIDE 0.9% 50ML 50 ML IV SCH ×2 (02:19→06:14)
[2017-01-30] MEDS: VANCOMYCIN INJ 1,400 MG in SODIUM CHLORIDE 0.9% 500ML 500 ML IV SCH ×2 (02:19→14:56)
--- NOTE | 2017-01-30 06:09 | Clinical Documentation Query ---
Dr. [facility] : CLINICAL DOCUMENTATION QUERY Patient is a 71 year old female admitted with confusion, altered mental status, visual hallucinations, and severe frontal/right sided headache. Notably, she reports having been "sick the past few days" prior to presentation with nausea and vomiting. LP negative. CT scan of the head negative. Alteration in mental status "possibly related to hypoglycemia". Neurology impression included "Pt appears to have a vascular headache associated with a flu-like illness". Please clarify as clinically able and appropriate. Thank you. In your clinical opinion is this patient being managed for: ( ) Metabolic encephalopathy secondary to (likely/suspected) viral infection ( ) Other explanation of clinical findings (Please Explain) ( x ) Unable to determine (Please Define) ( ) Need to Discuss ( ) Not Agree Awaiting hsv studies The medical record reflects the following clinical findings, treatment, and risk factors. Clinical Indicators: As above Treatment: CT Head, LP, MRI of the brain, neurology consultation Risk Factors: Fever, nausea, vomiting, hypoglycemia, age Please clarify and document your clinical opinion in the progress notes and discharge summary. Terms such as "probable", "suspected", "likely", "questionable", "possible", or "still to be ruled out" are acceptable. IF IN AGREEMENT, YOU MUST DOCUMENT ABOVE DIAGNOSTIC STATEMENT IN DAILY PROGRESS NOTES AND DISCHARGE SUMMARY. This document is not part of the patient's record. Thank You, Gilberto Lorenzo RN [phone]
[2017-01-30] MEDS: SODIUM CHLORIDE 0.9% 1000ML 1,000 ML IV SCH ×2 (06:13→23:42)
[2017-01-30 07:26] LABS: HEMATOCRIT 36.4 % (37-47); MEAN CELL VOLUME 87.5 fL (80-100); MEAN CORPUSCULAR HEMOGLOBIN 29.8 pg (25-34); MEAN CORPUSCULAR HGB CONC 34.1 g/dl (32-36); MEAN PLATELET VOLUME 8.8 fL (7.4-10.4); PLATELET COUNT 332 K/uL (130-400); RED BLOOD COUNT 4.16 M/uL (4.2-5.4); WHITE BLOOD COUNT 11.73 K/uL (4.8-10.8)
[2017-01-30 07:58] LABS: ESTIMATED AVERAGE GLUCOSE 180 mg/dl; HA1C FLAG Normal (Normal)
[2017-01-30 08:02] LABS: BUN/CREATININE RATIO 13.7 (10-20); CALCIUM 8.5 mg/dl (8.5-10.1); CREATININE 0.73 mg/dl (0.60-1.20); MAGNESIUM 2.1 mg/dl (1.8-2.4); POTASSIUM 3.7 mmol/L (3.5-5.1)
[2017-01-30] MEDS: INSULIN ASPART 100 UNITS/ML 3 ML PEN SC SCH ×4 (08:12→21:14)
[2017-01-30] MEDS: INSULIN GLARGINE SOLOSTAR 100 UNITS/ML 3 ML PEN SC SCH ×2 (08:13→21:15)
[2017-01-30] MEDS: CEFTRIAXONE SOD INJ 2,000 MG in DEXTROSE 5% 50ML 50 ML IV SCH ×2 (08:26→19:34)
[2017-01-30] MEDS: METHYLPREDNISOLONE IV 60 MG in SYRINGE 0 ML IV SCH (08:32)
--- NOTE | 2017-01-30 10:09 | ELECTROENCEPHALOGRAPH REPORT ---
REQUESTING PHYSICIAN: Dr. Marty Avelar CLINICAL DIAGNOSIS: Change in mental status. EEG DIAGNOSIS: Essentially normal during wakefulness. DESCRIPTION OF TRACING: This EEG was done as a bedside recording with a simultaneous video analysis of patient movement and behavior. Photic stimulation is the only stimulus parameter utilized. Drowsiness and light sleep were not recorded. There are a number of muscle movement artifacts recurrent throughout the tracing, but by in large long elements of the recording are available for interpretation and are artifact free. During these intervals there is evidence for normal appearing background rhythm in the alpha range of up to 10 Hz of maximum frequency and 30 microvolts of maximum amplitude. This is maximum posterior head regions and bilaterally symmetrical. Polymorphic mid frequency theta activity is seen over all head regions without clear focal or regional predominance. Anterior head region maximum bilaterally symmetrical low voltage fast activity in the beta range is present. Photic stimulation provokes some minimal driving response at most flash frequencies without a photomyogenic or photoparoxysmal component. At no time during the waking tracing is there evidence for potentially epileptogenic activity in the form of polyspike or spike wave bursts, focal sharp waves or focal spikes. INTERPRETATION: This EEG is essentially normal during wakefulness without evidence for focal or generalized encephalopathy and without evidence for potentially epileptogenic activity.
[2017-01-30] MEDS: AMPICILLIN IV 2,000 MG in SODIUM CHLOR 0.9% AD-VAN 100ML 100 ML IV SCH ×4 (10:38→22:18)
--- NOTE | 2017-01-30 11:35 | Progress Note ---
Progress Note Date of Service Jan 30, 2017. Progress Note ID Consult Dictated #[id number] A/P: 1.? Encephalitis 2. Leukocytosis - likely secondary to steroids -Continue abx for now, doubt bacterial meningitis, follow csf culture -Blood cultures -will add hsv pcr to csf and begin emperic acyclovir, mental status seems to have improved but brain MRI with right temporal lobe enhancement -will follow, thank you
--- NOTE | 2017-01-30 12:07 | INFECT. DISEASE CONSULTATION ---
DATE OF CONSULTATION: 01/30/2017 DATE OF CONSULTATION: 01/30/2017. REQUESTING PHYSICIAN: Dr. Avelar. HISTORY OF PRESENT ILLNESS: This is a 71-year-old female who was brought to the hospital by her after he noticed worsening mental status that started 1 day prior to admission. She is not able to provide any history however per the H\T\P she was having visual hallucinations prior to admission. She was also having difficulty following commands and performing activities of daily living. His example was not being able to complete pouring tea into a cup. She also had periods where she seemed to have a blank stare and was unresponsive. She does admit to having an upper GI illness a few days prior to this with nausea and vomiting. She states that this has resolved completely. She does admit to having fevers as high as 101 degrees prior to admission, but states this has resolved. There was concern for meningitis and/or encephalitis and lumbar puncture was performed yesterday. This did show 3 WBCs. Her glucose was elevated at 75, protein was elevated at 48. Gram stain does not show any organisms but rare WBCs. CSF culture is pending. Blood cultures were not obtained. Her initial white blood cell count was 9.9. Her sed rate was elevated at 57. Flu swab was negative. She was started empirically on vancomycin, Rocephin, ampicillin and Solu-Medrol. Her leukocytosis has increased today to 11.7. She did undergo a CAT scan prior to the LP which was unremarkable; however, a brain MRI was done yesterday which showed right temporal enhancement which could be secondary to neoplastic, infectious or previous infarction. There is also evidence of previous right ear surgery. Today, she states she is feeling much better. She is about ready to eat lunch and states her appetite has returned. She denies any nausea, vomiting or diarrhea. She is tolerating her antibiotics well. She has been afebrile since admission with the exception of a T-max of 37.6 on arrival to the hospital. She denies any headache or visual complaints now. She denies any neck pain. She denies any cough, shortness of breath or chest pain. She denies any sick contacts at home. All remaining review of systems are reviewed. She is able to tell me where she is, what the day is, her birthdate and she is oriented to self. She was also followed by neurology and an EEG was obtained. PAST MEDICAL HISTORY: Significant for type 2 diabetes and hyperlipidemia. PAST SURGICAL HISTORY: Unknown. FAMILY HISTORY: Noncontributory. SOCIAL HISTORY: Negative for tobacco use, alcohol use or drug use. She is and lives with her . She denies any sick contacts recently. ALLERGIES: She has no known drug allergies. CURRENT MEDICATIONS: Include ampicillin, Solu-Medrol, vancomycin, Lantus insulin, Zocor, ceftriaxone, acetaminophen, Maalox, milk of magnesia, Zofran, MiraLax. PHYSICAL EXAMINATION: VITAL SIGNS: She has been afebrile since admission. Pulse 66, respiratory rate is 18, blood pressure 160/71, oxygen saturation 95% on room air. GENERAL: She is awake and alert on my exam. She has no nuchal rigidity. HEAD, EYES, EARS, NOSE, AND THROAT: Extraocular muscles are intact. Mucous membranes are moist. SKIN: Without rash. HEART: Regular. LUNGS: Clear bilaterally. ABDOMEN: Soft and nontender. EXTREMITIES: There is no lower extremity edema. LABORATORY STUDIES: CBC reveals a white blood cell count of 11.7, hemoglobin 12.4, hematocrit 36.4, platelets are 332. Sed rate yesterday was 67. Chemistry panel reveals a sodium of 139, potassium 3.7, chloride 105, bicarbonate 24, BUN 10, creatinine 0.7, glucose is 191. Hemoglobin A1c was elevated at 7.9. LFTs are within normal limits. TSH was normal and CSF showed clear colorless fluid with 3 WBCs, 0 RBCs, 75 glucose, 48.9 protein. Urinalysis was unremarkable. Urine drug screen was negative and CSF culture is negative however WBCs were seen on Gram stain. Imaging is as reviewed previously. She also had a carotid artery exam which was negative and a chest x-ray which showed no acute disease. ASSESSMENT AND PLAN: Change in mental status, question encephalitis. I will add HSV PCR to her CSF. If pathology was not added it should as MRI shows questionable neoplastic findings. She will be started empirically on acyclovir as well. She can have droplet precautions discontinued after 24 hours of antibiotics although I do not feel that bacterial causes are to be the culprit. We will follow along with you. Thank you for this consultation. ROSAURA
[2017-01-30] MEDS: ACYCLOVIR SOD INJ 750 MG in DEXTROSE 5% 250ML 250 ML IV SCH ×2 (12:37→21:09)
--- NOTE | 2017-01-30 13:13 | Clinical Documentation Query ---
Dr. CHAO [facility] : CLINICAL DOCUMENTATION QUERY Patient is a 71 year old female admitted with confusion, altered mental status, visual hallucinations, and severe frontal/right sided headache. Notably, she reports having been "sick the past few days" prior to presentation with nausea and vomiting. LP negative. CT scan of the head negative. Alteration in mental status "possibly related to hypoglycemia". Neurology impression included "Pt appears to have a vascular headache associated with a flu-like illness". Please clarify as clinically able and appropriate. Thank you. In your clinical opinion is this patient being managed for: ( ) Metabolic encephalopathy secondary to (likely/suspected/possible) viral encephalitis ( ) Other explanation of clinical findings (Please Explain) ( x) Unable to determine (Please Define) ( ) Need to Discuss ( ) Not Agree Await hsv studies The medical record reflects the following clinical findings, treatment, and risk factors. Clinical Indicators: As above Treatment: CT Head, LP, MRI of the brain, neurology consultation Risk Factors: Fever, nausea, vomiting, hypoglycemia, age Please clarify and document your clinical opinion in the progress notes and discharge summary. Terms such as "probable", "suspected", "likely", "questionable", "possible", or "still to be ruled out" are acceptable. IF IN AGREEMENT, YOU MUST DOCUMENT ABOVE DIAGNOSTIC STATEMENT IN DAILY PROGRESS NOTES AND DISCHARGE SUMMARY. This document is not part of the patient's record. Thank You, Gilberto Lorenzo, KEYSHAWN [phone]
--- NOTE | 2017-01-30 14:02 | Surgery Consultation ---
Consultation Date of Service Jan 30, 2017. Chief Complaint HARDY, question possible temporal arteritis History of Present Illness The patient is a 71 year old female with hx of HTN, DMII, hyperlipidemia, and cancer of R ear area, currently admitted with altered mental status per and possible headache, seen in consultation today for possible R temporal arteritis. Pt states she has been seeing "flashing lights" at home occasionally for past 1-2 days, which she describes as circular areas. Also states she was seeing the curtains moving, even though they weren't. Per , some her speech seemed slurred and she overfilled her teacup and kept pouring until her told her to stop. Pt states she had been ill for 2 days prior with N/V/D, to the point that she was unable to keep down water. Pt states she had extensive surgery to remove ca from R ear and underwent radiation there as well 5 yrs ago. Prior to surgery, she was noted to have "shifting in her brain," and had HARDY and visual disturbances at that time. Continues to follow at [facility] yearly in May. States since her R ear surgery and radiation, she has had difficulty opening her jaw fully and occasionally her R side wound is pruritic and she scratches it. Pt c/o HARDY R frontal area which comes and goes. States just prior to my entering the room, she was noting the circular lights again, but they stopped. Pt denies unilateral extremity weakness, numbness, or tingling, unilateral vision changes , difficulty speaking or swallowing, fever, chills, chest pain, SOB, cough, abd pain, claudication, rest pain, edema, ulcerations, other complaints. Vitals Vital Signs Past 12 Hours Date Time Temp Pulse Resp B/P Pulse Ox O2 Delivery O2 Flow Rate FiO2 01/30/17 12:00 Room Air 01/30/17 11:20 36.8 66 18 160/71 95 Room Air 01/30/17 08:00 Room Air 01/30/17 07:09 36.8 63 18 168/69 94 Room Air 01/30/17 04:00 36.9 75 18 153/74 95 Room Air 01/30/17 04:00 95 Room Air Allergies Coded Allergies: No Known Allergies (Unverified , 01/29/17) Home Medications Scheduled Aspirin (Aspirin), 81 MG PO DAILY Glipizide (Glucotrol), 5 MG PO DAILY Metformin Hcl (Glucophage), 1,000 MG PO BID Simvastatin (Zocor), 20 MG PO QPM Problem List Medical Problems: (1) Altered mental status (2) DM (diabetes mellitus) (3) Headache Surgical / Medical History Hx Cardiac Surgery: No Hx Abdominal Surgery: No Hx Cancer Surgery: Yes (RT EAR REMOVED) Hx Thoracic Surgery: No Hx Orthopedic: No Hx Urinary Tract Surgery: No Past Medical/Surgical History: Cancer, Diabetes, High Cholesterol, Hypertension Family History Cancer Diabetes mellitus Social History Smoking Status: Never Smoker Hx Tobacco Use In Past Year?: No Hx Alcohol Use - Type & Amnt: No Hx Substance Use -Type & Amnt: No Review of Systems Constitutional: + malaise, No chills, No fever Skin: No change in color Eyes: + visual changes (previously, resolved) ENMT: No sore throat Respiratory: No [place], No cough, No hemoptysis, No short of breath Cardiovascular: No chest pain, No edema, No intermittent claudication, No palpitations, No syncope Gastrointestinal: + diarrhea (resolved), + nausea (resolved), + vomiting ( resolved), No abdominal pain Genitourinary - Female: No dysuria, No hematuria Neurologic: + headache (R frontal), + weakness (mild), No lethargy, No numbness , No tingling Physical Exam Constitutional: General Apperance: heathly-appearing, well-nourished, well-developed Level of Distress: NAD Psychiatric: Mental Status: active & alert, normal mood, abnormal affect (downplays sx, giggles inappropriately when asked questions, answers not appropriate to question asked, poor historian) Orientation: oriented except where noted, to time, to place, to person Memory: recent memory normal, remote memory normal Head: with evidence of injury (extensive scars noted to R side temporal/ parietal area, mild excoriation, surgical absence of outer ear, ear canal present. Nontender) Eyes: EOM: EOMI ENMT: normal ENT inspection, hearing grossly normal Neck: supple, trachea midline Lungs: Respiratory effort: no dyspnea Auscultation: no wheezing, no rales/crackles, no rhonchi, decreased breath sounds Cardiovascular: Apical Impulse: not displaced Heart Auscultation: RRR, no murmurs, no gallops Peripheral Pulses: Pulses: full and equal, in all extremities except if noted Bruits: none appreciated Superficial Temporal Artery: normal on the left, normal on the right ( nontender) Carotid Pulse: normal on the left, normal on the right Brachial Pulses: normal on the left, normal on the right Radial Pulse: normal on the left, normal on the right Femoral Pulse: normal on the left, normal on the right Posterior Tibialis Pulse: normal on the left, normal on the right Dorsalis Pedis Pulse: decreased on the left, decreased on the right Abdomen: Bowel Sounds: normal Inspection & Palpation: soft, non-distended, no tenderness, guarding & rebound Musculoskeletal: normal, normal strength (5/5 throughout), normal tone Extremities: Upper Right: no cyanosis, no edema, no varicosities Upper Left: no cyanosis, no edema, no varicosities Lower Right: no cyanosis, no edema, no varicosities Lower Left: no cyanosis, no edema, no varicosities Neurologic: Cranial Nerves: grossly intact Sensation: grossly intact Assessment and Plan ASSESSMENT and PLAN: R frontal HARDY, intermittent Pt with ESR 57, and nontender temporal areas bilaterally. Do not recommend temporal artery bx at this time. Carotid US WNL. Further recs per primary team/neurology. Please call if needed.
--- NOTE | 2017-01-30 14:37 | Pharmacy Progress Note ---
Glycemic Control: Progress Nt Date of Service Jan 30, 2017. Scope Glycemic Pharmacist consulted by Dr Avelar on 01/29/17 for glycemic control and to write orders per [facility] inpatient glycemic control protocol. Objective Accuchecks BSG (last 24hrs): Test 01/29/17 17:09 01/29/17 20:25 01/30/17 06:48 01/30/17 07:05 Bedside Glucose 278 mg/dl (70-90) 308 mg/dl (70-90) 191 mg/dl (70-90) Random Glucose 200 mg/dl (70-99) Test 01/30/17 11:23 Bedside Glucose 187 mg/dl (70-90) Laboratory Data (last 24hrs) Test 01/30/17 06:48 Anion Gap 10.0 mmol/L BUN/Creatinine Ratio 13.7 Blood Urea Nitrogen 10 mg/dl Creatinine 0.73 mg/dl Hemoglobin A1c 7.9 % Potassium Level 3.7 mmol/L Sodium Level 139 mmol/L White Blood Count 11.73 K/uL HbA1c: Test 01/30/17 06:48 Hemoglobin A1c 7.9 % (4.5-5.6) H Recent Pertinent Medications Outpatient Anti-diabetic Regimen: * metformin 1000 mg PO BID with meals * glipizide 5mg PO daily * A1c = unknown at time of consult The patient is currently receiving: * Basal insulin: Lantus 10 units every 12 hours * Correctional Insulin: NovoLog Correction per scale ACHS Goal Range: Low 140 mg/dL - High 180 mg/dL Correction Factor: 25 mg/dL/unit * Prandial insulin: Per carb ratio of 1 unit per 8 grams CHO consumed Risk Factors for Insulin Resistance: * Steroids: Solu-Medrol 125mg IV x1 dose in ED around 13:00, then Solu-Medrol 60mg IV daily * Infection: ?meningitis - started on vancomycin, ceftriaxone, ampicillin, and acyclovir IV * IVF: NSS * Diet: T2DM Assessment & Plan ASSESSMENT: * ADA & AACE recommend a goal blood sugar range 140-180 mg/dl for the majority of critically ill & non-critically ill patients. However, more stringent targets may be selected in individual cases. 01/29/17 * 71 y/o type 2 diabetic who uses oral medications as an outpatient to treat her diabetes was found in an altered mental state this AM * recent complains of headache as well as vomiting and diarrhea [employer] * BSG [employer] TE[employer] 228mg/dL * Currently, the patient is being treated empirically for meningitis with steroids and broad-spectrum ABX * both of these factors may increase BSGs * A1c is unknown at time of consult * or with AM labs to assess home DM regimen * oral meds will be held at admission secondary to acute illness * begin basal/bolus insulin regimen (already done by admitting provider) 01/30/17 * BSGs improved since last night's 300mg/dL with Lantus and NovoLog * continue same Lantus dose * BSGs may be inflated secondary to daily steroid dosing * tighten correction factor and carb ratio * A1c current and shows possibly above goal value * patient does not SMBG at home PLAN FOR INPATIENT GLYCEMIC CONTROL: * Lantus SQ BID * 0 units if BSG is below 120mg/dL * 5 units if BSG is 120-160mg/dL * 10 units if BSG is above 160mg/dL * NovoLog SQ AC and HS * Correction factor - tighten to 20mg/dL/unit * Carb ratio - tighten to 1:7 since steroids ordered * Goal range - 140-180mg/dL per ADA recommendations * Oral medications * hold on admission * A1c - current * add to discharge instructions RECOMMENDATIONS FOR DISCHARGE: * continue home dosing of oral medications and follow up with provider if tighter control is desired. * Please note that the plan above was derived based on current level of insulin resistance and hospital stress. These recommendations are appropriate for inpatient admission only. Plan of care upon discharge will need to be reassessed to avoid potential outpatient hypo/hyperglycemia. Thank you.
--- NOTE | 2017-01-30 15:59 | Progress Note ---
Internal Med Progress Note Date of Service: Jan 30, 2017. Provider Documentation: SUBJECTIVE: patient resting comfortably and conversing fluently says headache resolved afebrile eating fine had some visual hallucinations yesterday but resolved now no chest pain or sob wants to go home OBJECTIVE: Vital Signs-as noted below Exam: General-alert and awake and oriented. Not in distress ENT-normal hearing Neck-no neck masses Lungs-cta b/l no wheezing or crackles Heart-s1 and s2 heard, regular rate and rhythm no murmurs Abdomen-soft bowel sounds present non tender no distension Extremities-no edema no erythema Neuro-alert and awake moves extremities Lab data as noted below. ASSESSMENT & PLAN: This is a 71 year old female with PMH of DM2, HLD presents with confusion, altered mental status, headache Altered Mental Status +confusion, +fever, +headache LP shows elevated protein and glucose otherwise unremarkable ct head unremarkable esr 57 was empirically started on iv vanco, ampicillin,Rocephin and solumedrol. MRI shows questionable lesion in right temporal region. infection vs neoplastic process vs prior infarction neurology on board ID consulted and was started on iv acyclovir and hsv pcr sent symptoms much improved will monitor. DM2 holding oral medications On Lantus + sliding scale hba1c 7.9 will monitor HLD On statin DVT ppx SCDs FULL CODE DISPOSITION To be determined Vital Signs: Date Time Temp Pulse Resp B/P Pulse Ox O2 Delivery O2 Flow Rate FiO2 01/30/17 12:00 Room Air 01/30/17 11:20 36.8 66 18 160/71 95 Room Air 01/30/17 08:00 Room Air 01/30/17 07:09 36.8 63 18 168/69 94 Room Air 01/30/17 04:00 36.9 75 18 153/74 95 Room Air 01/30/17 04:00 95 Room Air 01/30/17 00:01 95 Room Air 01/30/17 00:00 36.9 67 19 148/86 95 Room Air 01/29/17 20:00 Room Air 01/29/17 20:00 36.5 98 20 153/78 92 Room Air 01/29/17 17:15 37.4 82 16 164/68 93 Room Air 01/29/17 16:49 89 20 133/63 96 Room Air Lab Results: Results Past 24 Hours Test 01/29/17 17:09 01/29/17 20:25 01/30/17 06:48 01/30/17 07:05 Range/Units Bedside Glucose 278 308 191 70-90 mg/dl White Blood Count 11.73 4.8-10.8 K/uL Red Blood Count 4.16 4.2-5.4 M/uL Hemoglobin 12.4 12.0-16.0 g/dL Hematocrit 36.4 37-47 % Mean Corpuscular Volume 87.5 80-100 fL Mean Corpuscular Hemoglobin 29.8 25-34 pg Mean Corpuscular Hemoglobin Concent 34.1 32-36 g/dl RDW Standard Deviation 46.5 36.4-46.3 fL RDW Coefficient of Variation 14.6 11.5-14.5 % Platelet Count 332 130-400 K/uL Mean Platelet Volume 8.8 7.4-10.4 fL Sodium Level 139 136-145 mmol/L Potassium Level 3.7 3.5-5.1 mmol/L Chloride Level 105 98-107 mmol/L Carbon Dioxide Level 24 21-32 mmol/L Anion Gap 10.0 3-11 mmol/L Blood Urea Nitrogen 10 7-18 mg/dl Creatinine 0.73 0.60-1.20 mg/dl Est Creatinine Clear Calc Drug Dose 79.1 ml/min Estimated GFR () 96.0 Estimated GFR (Non- 82.9 BUN/Creatinine Ratio 13.7 10-20 Random Glucose 200 70-99 mg/dl Estimated Average Glucose 180 mg/dl Hemoglobin A1c 7.9 4.5-5.6 % Calcium Level 8.5 8.5-10.1 mg/dl Magnesium Level 2.1 1.8-2.4 mg/dl Test 01/30/17 11:23 Range/Units Bedside Glucose 187 70-90 mg/dl Microbiology Results 01/30/17 Blood Culture, Received Pending 01/30/17 Blood Culture, Received Pending
--- NOTE | 2017-01-30 16:30 | Neurology Progress Notes ---
Neurology Progress Note Date of Service Jan 30, 2017. Bryson Lopez is a 71 year old female with PMH of DM2, hyperlipidemia presents with confusion, altered mental status, headache. her states she had been sick and vomiting since Saturday after taking care of her grandchildren that were ill. The night prior to her admission she was seeing flashing lights on the floor and she thought the curtain move in the living room which she remembers both event. seeing things that were not there. She stayed up to make rice crispy treats for her grandkids and then the next morning made muffins. Her states she sat down at the kitchen table and was pouring tea into her cup and let it over flow. she remembers doing this and that her started yelling at her to stop. she then developed a headache which she states has now resolved. She had an MRI which should some enhancement which appears to be in the area of enhancement on previous MRI after resection and 6 weeks of radiation therapy denies CP, SOB, abdominal pain, weakness, numbness tingling-one sided, current N , V, vision changes, confusion. Her thinks she is at her baseline. Objective Date Time Temp Pulse Resp B/P Pulse Ox O2 Delivery O2 Flow Rate FiO2 01/30/17 16:05 36.5 65 20 145/60 93 Room Air 01/30/17 16:00 Room Air 01/30/17 12:00 Room Air 01/30/17 11:20 36.8 66 18 160/71 95 Room Air 01/30/17 08:00 Room Air 01/30/17 07:09 36.8 63 18 168/69 94 Room Air 01/30/17 04:00 36.9 75 18 153/74 95 Room Air 01/30/17 04:00 95 Room Air 01/30/17 00:01 95 Room Air 01/30/17 00:00 36.9 67 19 148/86 95 Room Air 01/29/17 20:00 Room Air 01/29/17 20:00 36.5 98 20 153/78 92 Room Air 01/29/17 17:15 37.4 82 16 164/68 93 Room Air 01/29/17 16:49 89 20 133/63 96 Room Air Last 24 Hours Test 01/29/17 17:09 01/29/17 20:25 01/30/17 06:48 01/30/17 07:05 Bedside Glucose 278 mg/dl 308 mg/dl 191 mg/dl White Blood Count 11.73 K/uL Red Blood Count 4.16 M/uL Hemoglobin 12.4 g/dL Hematocrit 36.4 % Mean Corpuscular Volume 87.5 fL Mean Corpuscular Hemoglobin 29.8 pg Mean Corpuscular Hemoglobin Concent 34.1 g/dl RDW Standard Deviation 46.5 fL RDW Coefficient of Variation 14.6 % Platelet Count 332 K/uL Mean Platelet Volume 8.8 fL Sodium Level 139 mmol/L Potassium Level 3.7 mmol/L Chloride Level 105 mmol/L Carbon Dioxide Level 24 mmol/L Anion Gap 10.0 mmol/L Blood Urea Nitrogen 10 mg/dl Creatinine 0.73 mg/dl Est Creatinine Clear Calc Drug Dose 79.1 ml/min Estimated GFR () 96.0 Estimated GFR (Non- 82.9 BUN/Creatinine Ratio 13.7 Random Glucose 200 mg/dl Estimated Average Glucose 180 mg/dl Hemoglobin A1c 7.9 % Calcium Level 8.5 mg/dl Magnesium Level 2.1 mg/dl Test 01/30/17 11:23 Bedside Glucose 187 mg/dl Imaging: MRI brain with and without contrast- Postsurgical changes involving the right ear Mild restricted diffusion involving the right temporal lobe. There is also increased T2 and FLAIR signal in the region with evidence of volume loss and right temporal horn dilatation Right temporal lobe gyriform enhancement. This could be neoplastic, infectious, or less likely secondary to prior infarction carotid doppler- No evidence of hemodynamically significant carotid stenosis. EEG- This EEG is essentially normal during wakefulness without evidence for focal or generalized encephalopathy and without evidence for potentially epileptogenic activity. Exam: Physical Exam: Constitutional: , appearance nourished obese Ears, Nose, Mouth and Throat: mucous membranes moist, no injection and skin normal, eyes normal Cardiovascular: normal S-1 and S-2 and regular rate and rhythm Respiratory: clear to auscultation (CTA) and no rales, rhonchi or wheeze Musculoskeletal: no peripheral edema and good distal pulses Skin: no stigmata of neurocutaneous disease noted and normal and intact Eyes: extraocular muscles intact (EOMI) and pupils equal, round and reactive to light (PERRL) NEUROLOGIC EXAMINATION: Mental status: Alert and interactive Oriented [facility], 2017 Oriented to person Speech fluent with no evidence of aphasia Cranial Nerves smile eyebrow raise symmetric tongue midline Reflexes: Deep tendon reflexes were symmetrical and graded 2/5. Plantar responses were flexor. Sensory: cool and light sensation Coordination: finger to nose without bi pass or tremor Gait/Stance: Posture normal. Gait normal: with steady with steps, base, and tandem gait. Motor: Negative for pronator drift of out stretched arms with eyes closed. Strength: biceps triceps hand die finisher 5/5 bilaterally Current Inpatient Medications Medications (Trade) Dose Ordered Sig/Vangie Route Start Time Stop Time Status Last Admin Dose Admin Sodium Chloride (Nss 1000ml) 1,000 ml @ 80 mls/hr [id number] IV 01/29/17 17:00 02/28/17 16:59 01/30/17 06:13 80 MLS/HR Acetaminophen (Tylenol Tab) 650 mg Q4H PRN PO 01/29/17 13:15 02/28/17 13:14 Al Hydrox/Mg Hydrox/Simethicone (Maalox Max Susp) 15 ml Q4H PRN PO 01/29/17 13:15 02/28/17 13:14 Magnesium Hydroxide (Milk Of Magnesia Susp) 30 ml Q12H PRN PO 01/29/17 13:15 02/28/17 13:14 Ondansetron HCl (Zofran Inj) 4 mg Q6H PRN IV 01/29/17 13:15 02/28/17 13:14 Polyethylene (Miralax Powder Packet) 17 gm DAILY PRN PO 01/29/17 13:15 02/28/17 13:14 Insulin Glargine (Lantus Solostar Pen) SEE PROTOCOL BID SC 01/29/17 21:00 02/28/17 20:59 01/30/17 08:13 10 UNIT Insulin Aspart (novoLOG ASPART) SLIDING SCALE If C... ACHS SC 01/29/17 21:00 02/28/17 20:59 01/30/17 08:12 10 UNITS Glucose (Glucose 40% Gel) 15-30 GRAMS 15 GRAMS... UD PRN PO 01/29/17 13:15 02/28/17 13:14 Glucose (Glucose Chew Tab) 4-8 Tablets 4 Tabl... UD PRN PO 01/29/17 13:15 02/28/17 13:14 Dextrose (Dextrose 50% 50ML Syringe) 25-50ML OF 50% DW IV FOR... UD PRN IV 01/29/17 13:15 02/28/17 13:14 Glucagon (Glucagon Inj) 1 mg UD PRN SQ 01/29/17 13:15 02/28/17 13:14 Miscellaneous Information 1 ea 1 ea UD N/A 01/29/17 13:47 02/28/17 13:46 Methylprednisolone Sodium Succinate 60 mg/Syringe 0.96 ml @ 1.5 mls/min DAILY IV 01/30/17 09:00 03/01/17 08:59 01/30/17 08:32 1.5 MLS/MIN Vancomycin HCl 1400 mg/Sodium Chloride 528 ml @ 200 mls/hr Q12H IV 01/30/17 02:00 02/08/17 13:59 01/30/17 14:56 200 MLS/HR Ceftriaxone Sodium/Dextrose (Rocephin Inj/D5 50ml) 70 ml @ 100 mls/hr Q12@0800,2000 IV 01/29/17 20:00 02/08/17 19:59 01/30/17 08:26 100 MLS/HR Simvastatin (Zocor Tab) 20 mg QPM PO 01/29/17 21:00 02/28/17 20:59 01/29/17 20:44 20 MG Vancomycin HCl (Consult) 1 ea UD PRN N/A 01/29/17 15:00 02/28/17 14:59 Gadobutrol 9 mmol 9 mmol UD PRN IV 01/29/17 22:15 02/02/17 22:14 Ampicillin Sodium 2000 mg/Sodium Chloride 100 ml @ 100 mls/hr Q4H IV 01/30/17 10:00 02/08/17 17:59 01/30/17 14:06 100 MLS/HR Acyclovir Sodium/ Dextrose (Zovirax Inj/D5 250ml) 265 ml @ 265 mls/hr Q8H IV 01/30/17 12:30 02/09/17 11:14 01/30/17 12:37 265 MLS/HR Impression 71 year old female with fever, MS change after flu -like symptoms Plan 1. MRI with and without brain- appearance of MRI enhancement is in the area of previous 6 weeks of radiation therapy due to basal cell carcinoma 2. carotid doppler - no occlusion or stenosis 3. EEG no seizure activity 4. no evidence of infection from LP -CSF evaluation 5. medical management per primary team 6. increased sed rate primary team pursuing temp arteritis steroids given in ED - no intervention indicated 7. ID to follow with antibiotic therapy I have seen and discussed above patient with Dr Mary Cifuentes, neurology. Pt seen Continue to suspect pt had HARDY associated with infectious illness. The pt MRI changes in the right hemisphere are old, and improved and have been present since local cranial irradiation for basal cell CA face. Given the normal LP, meningitis is not present and doubt there is meningoencephalitis. If the CSF PCR for HSV I would rec dc all antibiotics and antiviral. We will have the pt MRI brain put into our system and compared to old. PT does not need temporal artery biopsy, LIZZETH Cifuentes MD
[2017-01-30] MEDS: SIMVASTATIN 20 MG TAB PO SCH (20:01)
[2017-01-31] VITALS (9 sets, daily range): BP systolic 126–182; BP diastolic 63–89; PULSE 57–67; TEMP 36.3–36.9; O2SAT 92–100
[2017-01-31] MEDS: AMPICILLIN IV 2,000 MG in SODIUM CHLOR 0.9% AD-VAN 100ML 100 ML IV SCH ×3 (01:28→10:24)
[2017-01-31] MEDS ORDERED: VANCOMYCIN TROUGH SCH (01:30)
[2017-01-31] MEDS: VANCOMYCIN INJ 1,400 MG in SODIUM CHLORIDE 0.9% 500ML 500 ML IV SCH (01:34)
[2017-01-31] MEDS: ACYCLOVIR SOD INJ 750 MG in DEXTROSE 5% 250ML 250 ML IV SCH ×3 (04:43→20:33)
[2017-01-31] MEDS: CEFTRIAXONE SOD INJ 2,000 MG in DEXTROSE 5% 50ML 50 ML IV SCH (08:02)
[2017-01-31] MEDS: METHYLPREDNISOLONE IV 60 MG in SYRINGE 0 ML IV SCH (08:53)
[2017-01-31] MEDS: INSULIN ASPART 100 UNITS/ML 3 ML PEN SC SCH ×4 (09:36→20:37)
[2017-01-31] MEDS: INSULIN GLARGINE SOLOSTAR 100 UNITS/ML 3 ML PEN SC SCH ×2 (09:37→20:38)
--- NOTE | 2017-01-31 09:52 | Pharmacy Progress Note ---
Pharmacy Antibiotic Prog Note Date of Service: Jan 31, 2017. Subjective: The patient is currently receiving vancomycin 1400 mg iv q 12 hrs The patient is currently on day # 3 of IV therapy. Objective: Height (Feet): 5 Height (Inches): 4.00 Weight (Kilograms): 97.400 Levels: Item Value Date Time Vancomycin Level Trough 11.7 mcg/ml 01/31/17 0146 Micro Results: Item Value Date Time Blood Culture Received 01/30/17 1242 Blood Pending Blood Culture Received 01/30/17 1241 Blood Pending Gram Stain - Final Resulted 01/29/17 1420 Cerebral Spinal Fluid Assessment & Plan: Patient currently receiving vancomycin, ceftriaxone, ampicillin and acyclovir for possible meningitis. (pharmacy only consulted on vancomycin). BC x 2 are pending, CSF gm stain no growth to date. ID is following the patient. Vancomycin: * Trough level this am subtherapeutic at ~12 mcg/ml (goal closer to 20 mcg/ml for meningitis) * Previous dose given about an hour late therefore actual level probably lower ; will adjust MD to 1500 mg (~15 mg/kg) iv q 10 hrs to achieve an estimated trough ~19 mcg/ml * Estimated kinetics based upon level: t1/2~7 hrs, ke ~0.102 hr-1 - no Scr ordered today however seems to be stable past couple days * If vancomycin is to be continued will order trough prior to the 1800 dose on to ensure therapeutic Pharmacy will continue to follow and will adjust dose/frequency as necessary. Thank you
--- NOTE | 2017-01-31 10:50 | Progress Note ---
Subjective Date of Service: Jan 31, 2017. Subjective Pt evaluation today including: conversation w/ patient, conversation w/ family , physical exam, chart review, lab review at bedside, pt feeling much better today. no complaints. denies salazar. said she was having visual hallucinations yesterday, but none today. States she sees a "spinning ball of light", she names it sparky. she states she had multiple episode where she saw this in her room yesterday but not today. tolerating abx. was started emperically on acyclovir yesterday, HSV pcr pending. csf culture negative to date. No fevers. eating well. no visual complaints today. all remaining ros reviewed and are negative. pt states she is significantly improved from day of admission . Problem List Medical Problems: (1) Temporal arteritis Status: Acute Objective Vital Signs Date Time Temp Pulse Resp B/P Pulse Ox O2 Delivery O2 Flow Rate FiO2 01/31/17 08:46 36.3 62 19 145/89 95 Room Air 01/31/17 08:00 Room Air 01/31/17 05:44 36.5 58 16 131/71 93 Room Air 01/31/17 04:00 94 Room Air 01/31/17 00:42 36.8 57 20 126/63 96 Room Air 01/30/17 23:59 94 Room Air 01/30/17 20:00 94 Room Air 01/30/17 19:52 36.7 65 20 159/70 94 Room Air 01/30/17 16:05 36.5 65 20 145/60 93 Room Air 01/30/17 16:00 Room Air 01/30/17 12:00 Room Air 01/30/17 11:20 36.8 66 18 160/71 95 Room Air Physical Exam General Appearance: WD/WN, no apparent distress Eyes: EOMI Neck: supple, + pertinent finding (no nuchal rigidity) Respiratory/Chest: lungs clear, normal breath sounds, no respiratory distress Cardiovascular: regular rate, rhythm, no edema Abdomen: non tender, soft Extremities: non-tender, normal inspection, no pedal edema Neurologic/Psychiatric: alert, oriented x 3 Skin: normal color Laboratory Results Item Value Date Time Gram Stain - Final Resulted 01/29/17 1420 Cerebral Spinal Fluid Last 24 Hours Test 01/30/17 11:23 01/30/17 11:31 01/30/17 16:21 01/30/17 20:12 Bedside Glucose 187 mg/dl 264 mg/dl 300 mg/dl Test 01/31/17 01:46 01/31/17 07:03 Vancomycin Level Trough 11.7 mcg/ml Bedside Glucose 174 mg/dl Assessment and Plan (1) Altered mental status Assessment & Plan: ? Encephalitis, will continue acyclovir for now pending hsv pcr. clinically improved. cultures negative, lp with only 3 wbc, highly doubt bacterial cause, will stop abx. will stop droplet precautions as well. If she is to be d/c prior to return of hsv pcr can be transitioned to po valtrex 1g tid x 7 days. (2) Headache Problem Qualifiers (1) Altered mental status: Altered mental status type: delirium Qualified Codes: R41.0 - Disorientation , unspecified
[2017-01-31] MEDS ORDERED: VANCOMYCIN INJ 1,500 MG in SODIUM CHLORIDE 0.9% 500ML 500 ML IV SCH (12:00)
--- NOTE | 2017-01-31 14:11 | Pharmacy Progress Note ---
Glycemic Control: Progress Nt Date of Service Jan 31, 2017. Scope Glycemic Pharmacist consulted by Dr Avelar on 01/29/17 for glycemic control and to write orders per [facility] inpatient glycemic control protocol. Objective Accuchecks BSG (last 24hrs): Test 01/30/17 16:21 01/30/17 20:12 01/31/17 07:03 01/31/17 11:11 Bedside Glucose 264 mg/dl (70-90) 300 mg/dl (70-90) 174 mg/dl (70-90) 177 mg/dl (70-90) HbA1c: Test 01/30/17 06:48 Hemoglobin A1c 7.9 % (4.5-5.6) H Recent Pertinent Medications Outpatient Anti-diabetic Regimen: * metformin 1000 mg PO BID with meals * glipizide 5mg PO daily * A1c = unknown at time of consult The patient is currently receiving: * Basal insulin: Lantus 10 units every 12 hours * Correctional Insulin: NovoLog Correction per scale ACHS Goal Range: Low 140 mg/dL - High 180 mg/dL Correction Factor: 20 mg/dL/unit * Prandial insulin: Per carb ratio of 1 unit per 7 grams CHO consumed Risk Factors for Insulin Resistance: * Steroids: Solu-Medrol 125mg IV x1 dose in ED around 13:00, then Solu-Medrol 60mg IV daily * Infection: ?meningitis - -u-a-r-r-t-e-d- -o-n- -n-v-s-l-e-t-y-c-i-n--,- -i-n-v-w-j-y-a-x-o-n-e--,- -t-b-v-t-r-n-l-l-i-n--,- and acyclovir IV * IVF: NSS * Diet: T2DM Assessment & Plan ASSESSMENT: * ADA & AACE recommend a goal blood sugar range 140-180 mg/dl for the majority of critically ill & non-critically ill patients. However, more stringent targets may be selected in individual cases. 01/29/17 * 71 y/o type 2 diabetic who uses oral medications as an outpatient to treat her diabetes was found in an altered mental state this AM * recent complains of headache as well as vomiting and diarrhea [employer] AGENT * BSG [employer]ION AGENT 228mg/dL * Currently, the patient is being treated empirically for meningitis with steroids and broad-spectrum ABX * both of these factors may increase BSGs * A1c is unknown at time of consult * or with AM labs to assess home DM regimen * oral meds will be held at admission secondary to acute illness * begin basal/bolus insulin regimen (already done by admitting provider) 01/30/17 * BSGs improved since last night's 300mg/dL with Lantus and NovoLog * continue same Lantus dose * BSGs may be inflated secondary to daily steroid dosing * tighten correction factor and carb ratio * A1c current and shows possibly above goal value * patient does not SMBG at home 01/31/17 * BSGs juan antonio again throughout the day despite tightening NovoLog parameters * Tighten NovoLog parameters again today and continue to titrate to goal * Fasting improved compared to yesterday - Lantus may be reaching steady state * no change * ABX discontinued * loss of IV dextrose source may aide in achieving euglycemia PLAN FOR INPATIENT GLYCEMIC CONTROL: * Lantus SQ BID * 0 units if BSG is below 120mg/dL * 5 units if BSG is 120-160mg/dL * 10 units if BSG is above 160mg/dL * NovoLog SQ AC and HS * Correction factor - tighten to 18mg/dL/unit * Carb ratio - tighten to 1:6 since steroids ordered * Goal range - 140-180mg/dL per ADA recommendations * Oral medications * hold on admission * A1c - current * add to discharge instructions RECOMMENDATIONS FOR DISCHARGE: * continue home dosing of oral medications and follow up with provider if tighter control is desired. * Please note that the plan above was derived based on current level of insulin resistance and hospital stress. These recommendations are appropriate for inpatient admission only. Plan of care upon discharge will need to be reassessed to avoid potential outpatient hypo/hyperglycemia. Thank you.
--- NOTE | 2017-01-31 16:32 | Progress Note ---
Internal Med Progress Note Date of Service: Jan 31, 2017. Provider Documentation: SUBJECTIVE: patient says again she saw a fire ball travelling in the room making noises and hitting the wall denies headache afebrile denies any sob she thinks her seeing the fire mostly related to her radiation tx to her head for basal cell cancer wants to go home OBJECTIVE: Vital Signs-as noted below Exam: General-alert and awake and oriented. Not in distress ENT-normal hearing Neck-no neck masses Lungs-cta b/l no wheezing or crackles Heart-s1 and s2 heard, regular rate and rhythm no murmurs Abdomen-soft bowel sounds present non tender no distension Extremities-no edema no erythema Neuro-alert and awake moves extremities Lab data as noted below. ASSESSMENT & PLAN: This is a 71 year old female with PMH of DM2, HLD presents with confusion, altered mental status, headache Altered Mental Status +confusion, +fever, +headache LP shows elevated protein and glucose otherwise unremarkable ct head unremarkable esr 57 was empirically started on iv vanco, ampicillin,Rocephin and solumedrol. MRI shows questionable lesion in right temporal region. infection vs neoplastic process vs prior infarction neurology on board ID consulted and was started on iv acyclovir and hsv pcr sent again had visual and auditory hallucination today MRI better than prior one as per neurology iv vanco, ampicillin and Rocephin stopped by ID to continue acyclovir until hsv studies comes abck will await further neuro input will consider psychiatry consult DM2 holding oral medications On Lantus + sliding scale hba1c 7.9 264/300/174/177 will monitor HLD On statin DVT ppx SCDs FULL CODE DISPOSITION transferred to medical floor To be determined Vital Signs: Date Time Temp Pulse Resp B/P Pulse Ox O2 Delivery O2 Flow Rate FiO2 01/31/17 15:47 100 Room Air 01/31/17 15:23 36.9 67 18 152/67 92 Room Air 01/31/17 12:24 36.9 61 18 182/80 93 Room Air 01/31/17 11:57 95 Room Air 01/31/17 08:46 36.3 62 19 145/89 95 Room Air 01/31/17 08:00 Room Air 01/31/17 05:44 36.5 58 16 131/71 93 Room Air 01/31/17 04:00 94 Room Air 01/31/17 00:42 36.8 57 20 126/63 96 Room Air 01/30/17 23:59 94 Room Air 01/30/17 20:00 94 Room Air 01/30/17 19:52 36.7 65 20 159/70 94 Room Air Lab Results: Results Past 24 Hours Test 01/30/17 20:12 01/31/17 01:46 01/31/17 07:03 01/31/17 11:11 Range/Units Bedside Glucose 300 174 177 70-90 mg/dl Vancomycin Level Trough 11.7 SEE COMMENT mcg/ml
--- NOTE | 2017-01-31 19:10 | Neurology Progress Notes ---
Neurology Progress Note Date of Service Jan 31, 2017. Bryson Lopez is a 71 year old female with PMH of DM2, hyperlipidemia presents with confusion, altered mental status, headache. her states she had been sick and vomiting since Saturday after taking care of her grandchildren that were ill. The night prior to her admission she was seeing flashing lights on the floor and she thought the curtain moved in the living room which she remembers both event. seeing things that were not there. She stayed up to make rice crispy treats for her grand kids and then the next morning made muffins. Her states she sat down at the kitchen table and was pouring tea into her cup and let it over flow. she remembers doing this and that her started yelling at her to stop. she then developed a headache which she states has now resolved. She had an MRI which should some enhancement which appears to be in the area of enhancement on previous MRI after resection and 6 weeks of radiation therapy. There is no family currently in room. She states she saw a sparkly ball which moved with her eye movement across the wall and then spun around in the corner. Then is went away. denies CP, SOB, abdominal pain, weakness, numbness tingling, fever chills night sweats. Objective Date Time Temp Pulse Resp B/P Pulse Ox O2 Delivery O2 Flow Rate FiO2 01/31/17 15:47 100 Room Air 01/31/17 15:23 36.9 67 18 152/67 92 Room Air 01/31/17 12:24 36.9 61 18 182/80 93 Room Air 01/31/17 11:57 95 Room Air 01/31/17 08:46 36.3 62 19 145/89 95 Room Air 01/31/17 08:00 Room Air 01/31/17 05:44 36.5 58 16 131/71 93 Room Air 01/31/17 04:00 94 Room Air 01/31/17 00:42 36.8 57 20 126/63 96 Room Air 01/30/17 23:59 94 Room Air 01/30/17 20:00 94 Room Air 01/30/17 19:52 36.7 65 20 159/70 94 Room Air Last 24 Hours Test 01/30/17 20:12 01/31/17 01:46 01/31/17 07:03 01/31/17 11:11 Bedside Glucose 300 mg/dl 174 mg/dl 177 mg/dl Vancomycin Level Trough 11.7 mcg/ml Imaging: MRI brain was pushed to [facility] for comparison to previous MRI Dr Jose radiation department editor feels the 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 Current Inpatient Medications Medications (Trade) Dose Ordered Sig/Vangie Route Start Time Stop Time Status Last Admin Dose Admin Sodium Chloride (Nss 1000ml) 1,000 ml @ 80 mls/hr [id number] IV 01/29/17 17:00 02/28/17 16:59 01/30/17 23:42 80 MLS/HR Acetaminophen (Tylenol Tab) 650 mg Q4H PRN PO 01/29/17 13:15 02/28/17 13:14 Al Hydrox/Mg Hydrox/Simethicone (Maalox Max Susp) 15 ml Q4H PRN PO 01/29/17 13:15 02/28/17 13:14 Magnesium Hydroxide (Milk Of Magnesia Susp) 30 ml Q12H PRN PO 01/29/17 13:15 02/28/17 13:14 Ondansetron HCl (Zofran Inj) 4 mg Q6H PRN IV 01/29/17 13:15 02/28/17 13:14 Polyethylene (Miralax Powder Packet) 17 gm DAILY PRN PO 01/29/17 13:15 02/28/17 13:14 Insulin Glargine (Lantus Solostar Pen) SEE PROTOCOL BID SC 01/29/17 21:00 02/28/17 20:59 01/31/17 09:37 10 UNIT Insulin Aspart (novoLOG ASPART) SLIDING SCALE If C... ACHS SC 01/29/17 21:00 02/28/17 20:59 01/31/17 18:08 13 UNITS Glucose (Glucose 40% Gel) 15-30 GRAMS 15 GRAMS... UD PRN PO 01/29/17 13:15 02/28/17 13:14 Glucose (Glucose Chew Tab) 4-8 Tablets 4 Tabl... UD PRN PO 01/29/17 13:15 02/28/17 13:14 Dextrose (Dextrose 50% 50ML Syringe) 25-50ML OF 50% DW IV FOR... UD PRN IV 01/29/17 13:15 02/28/17 13:14 Glucagon (Glucagon Inj) 1 mg UD PRN SQ 01/29/17 13:15 02/28/17 13:14 Miscellaneous Information (Consult Glycemic Management Pharmacy) 1 ea UD N/A 01/29/17 13:47 02/28/17 13:46 Simvastatin (Zocor Tab) 20 mg QPM PO 01/29/17 21:00 02/28/17 20:59 01/30/17 20:01 20 MG Gadobutrol 9 mmol 9 mmol UD PRN IV 01/29/17 22:15 02/02/17 22:14 Acyclovir Sodium/ Dextrose (Zovirax Inj/D5 250ml) 265 ml @ 265 mls/hr Q8H IV 01/30/17 12:30 02/09/17 11:14 01/31/17 12:34 265 MLS/HR Impression 71 year old female with fever, MS change after flu -like symptoms Plan 1. MRI with and without brain- appearance of MRI enhancement is in the area of previous 6 weeks of radiation therapy due to basal cell carcinoma. 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 carotid doppler - no occlusion or stenosis 3. EEG no seizure activity 4. no evidence of infection from LP -CSF evaluation 5. medical management per primary team 6. increased sed rate primary team pursuing temp arteritis steroids given in ED - no intervention indicated 7. ID to follow with antibiotic therapy should d/c if no positive results on CSF I have seen and discussed above patient with Dr Mary Cifuentes, neurology Pt seen and examined. neg bruit, nml ON, nl visual salgado. Had binocular swirling colored vis phen lasting several min with a sense of breeze and smell, no alteration of consciousness and no headache. Suspect acephalgic migrainous phen, monitor. HARDY associated with viral illness, neg LP, HSV PCR CSF neg. The abnl in the R temp lobe is old, and improved and likely related to pt cranial irradiation. From my perspective antivirals do not need to be continued. Fu with neurology post dc. LIZZETH Cifuentes MD
[2017-01-31 19:35] LABS: HSV TYPE 1 DNA Not Detected (Not Detected); HSV TYPE 1&2 DNA SOURCE CSF; HSV TYPE 2 DNA Not Detected (Not Detected)
[2017-01-31] MEDS: SODIUM CHLORIDE 0.9% 1000ML 1,000 ML IV SCH (20:42)
[2017-01-31] MEDS: SIMVASTATIN 20 MG TAB PO SCH (20:42)
[2017-02-01] MEDS: ACYCLOVIR SOD INJ 750 MG in DEXTROSE 5% 250ML 250 ML IV SCH (04:16)
[2017-02-01 08:19] VITALS: BP 164/74; PULSE 59; TEMP 36.9; O2SAT 96
[2017-02-01] MEDS: INSULIN ASPART 100 UNITS/ML 3 ML PEN SC SCH (08:49)
[2017-02-01] MEDS: INSULIN GLARGINE SOLOSTAR 100 UNITS/ML 3 ML PEN SC SCH (08:49)
[2017-02-01] MEDS: SODIUM CHLORIDE 0.9% 1000ML 1,000 ML IV SCH (08:51)
--- NOTE | 2017-02-01 09:46 | Pharmacy Progress Note ---
Glycemic Control: Progress Nt Date of Service Feb 01, 2017. Scope Glycemic Pharmacist consulted by Dr Avelar on 01/29/17 for glycemic control and to write orders per [facility] inpatient glycemic control protocol. Objective Accuchecks BSG (last 24hrs): Test 01/31/17 11:11 01/31/17 16:40 01/31/17 19:41 02/01/17 07:35 Bedside Glucose 177 mg/dl (70-90) 255 mg/dl (70-90) 233 mg/dl (70-90) 139 mg/dl (70-90) HbA1c: Test 01/30/17 06:48 Hemoglobin A1c 7.9 % (4.5-5.6) H Recent Pertinent Medications Outpatient Anti-diabetic Regimen: * metformin 1000 mg PO BID with meals * glipizide 5mg PO daily * A1c = unknown at time of consult The patient is currently receiving: * Basal insulin: Lantus 10 units every 12 hours * Correctional Insulin: NovoLog Correction per scale ACHS Goal Range: Low 140 mg/dL - High 180 mg/dL Correction Factor: 18 mg/dL/unit * Prandial insulin: Per carb ratio of 1 unit per 6 grams CHO consumed Risk Factors for Insulin Resistance: * Steroids: Solu-Medrol 125mg IV x1 dose in ED around 13:00, then Solu-Medrol 60mg IV daily --> discontinued this AM * Infection: ?meningitis - acyclovir IV * IVF: NSS * Diet: T2DM Assessment & Plan ASSESSMENT: * ADA & AACE recommend a goal blood sugar range 140-180 mg/dl for the majority of critically ill & non-critically ill patients. However, more stringent targets may be selected in individual cases. 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 228mg/dL * Currently, the patient is being treated empirically for meningitis with steroids and broad-spectrum ABX * both of these factors may increase BSGs * A1c is unknown at time of consult * or with AM labs to assess home DM regimen * oral meds will be held at admission secondary to acute illness * begin basal/bolus insulin regimen (already done by admitting provider) 01/30/17 * BSGs improved since last night's 300mg/dL with Lantus and NovoLog * continue same Lantus dose * BSGs may be inflated secondary to daily steroid dosing * tighten correction factor and carb ratio * A1c current and shows possibly above goal value * patient does not SMBG at home 01/31/17 * BSGs juan antonio again throughout the day despite tightening NovoLog parameters * Tighten NovoLog parameters again today and continue to titrate to goal * Fasting improved compared to yesterday - Lantus may be reaching steady state * no change * ABX discontinued * loss of IV dextrose source may aide in achieving euglycemia 02/01/17 * BSGs better controlled yesterday with 49 units of insulin (174-233mg/dL) * Today, fasting BSG WNL at 139mg/dL and Solu-Medrol discontinued * for these two reasons, empirically decrease daily dose of insulin Jessica will receive (decrease in basal and loosen NovoLog parameters) * May consider resuming metformin when 24-48 hours prior to discharge PLAN FOR INPATIENT GLYCEMIC CONTROL: * Lantus SQ BID * 0 units if BSG is below 120mg/dL * 5 units if BSG is 120-160mg/dL --> dose for this AM * 10 units if BSG is above 160mg/dL * NovoLog SQ AC and HS * Correction factor - tighten to 25 mg/dL/unit * Carb ratio - tighten to 1:8 since steroids stopped * Goal range - 140-180mg/dL per ADA recommendations * Oral medications * held on admission * A1c - current * add to discharge instructions RECOMMENDATIONS FOR DISCHARGE: * continue home dosing of oral medications and follow up with provider if tighter control is desired. * Please note that the plan above was derived based on current level of insulin resistance and hospital stress. These recommendations are appropriate for inpatient admission only. Plan of care upon discharge will need to be reassessed to avoid potential outpatient hypo/hyperglycemia. Thank you.
--- NOTE | 2017-02-01 11:21 | Progress Note ---
Subjective Date of Service: Feb 01, 2017. Subjective Pt evaluation today including: conversation w/ patient, conversation w/ family , physical exam, chart review, lab review pt seen in follow up, transferred to floor, doing well. feeling much better today, asking to go home. family at bedside. no salazar, no f/c, no hallucinations yesterday or today. mri changes felt to be related to previous xrt. cultures all negative, hsv pcr negative. afebrile. no new labs. all remaining ros reviewed and are negative. Problem List Medical Problems: (1) Temporal arteritis Status: Acute Objective Vital Signs Date Time Temp Pulse Resp B/P Pulse Ox O2 Delivery O2 Flow Rate FiO2 02/01/17 08:19 36.9 59 21 164/74 96 Room Air 02/01/17 00:01 Room Air 01/31/17 23:50 36.4 67 20 159/69 95 Room Air 01/31/17 20:00 Room Air 01/31/17 15:47 100 Room Air 01/31/17 15:23 36.9 67 18 152/67 92 Room Air 01/31/17 12:24 36.9 61 18 182/80 93 Room Air 01/31/17 11:57 95 Room Air Physical Exam General Appearance: WD/WN, no apparent distress Eyes: EOMI Neck: supple Respiratory/Chest: lungs clear, normal breath sounds, no respiratory distress Cardiovascular: regular rate, rhythm, no edema Abdomen: non tender, soft Extremities: non-tender, normal inspection, no pedal edema Neurologic/Psychiatric: alert, oriented x 3 Skin: normal color Laboratory Results Item Value Date Time Blood Culture - Preliminary Resulted 01/30/17 1242 Blood NO GROWTH TO DATE. Blood Culture - Preliminary Resulted 01/30/17 1241 Blood NO GROWTH TO DATE. Gram Stain - Final Complete 01/29/17 1420 Cerebral Spinal Fluid Last 24 Hours Test 01/31/17 16:40 01/31/17 19:41 02/01/17 07:35 Bedside Glucose 255 mg/dl 233 mg/dl 139 mg/dl Assessment and Plan (1) Altered mental status Assessment & Plan: no signs of meningitis/encephalitis. stop acyclovir, abx stopped previously, cultures negative. ok for d/c from ID standpoint when medially stable off of abx/antivirals. (2) Headache Problem Qualifiers (1) Altered mental status: Altered mental status type: delirium Qualified Codes: R41.0 - Disorientation , unspecified
[2017-02-01] MEDS ORDERED: LISINOPRIL 5 MG TAB PO ONE (12:45)
[2017-02-01] MEDS ORDERED: LISI-461 PO (12:47)
--- NOTE | 2017-02-01 12:50 | Discharge Instructions ---
Discharge Instructions Admission Reason for Admission: Altered Mental Status, Headache Discharge Discharge Diagnosis / Problem: AMS, headache Discharge Goals Goal(s): Decrease discomfort, Improve function Activity Recommendations Activity Limitations: resume your previous activity . Instructions / Follow-Up Instructions / Follow-Up FOLLOWUP WITH FAMILY DOCTOR ON January AT 2:50PM. BLOOD PRESSURE AND DIABETES FOLLOWUP WITH FAMILY DOCTOR. FOLLOWUP WITH NEUROLOGY DR.Kathleen Easton Cifuentes M.D. IN 1-2 WEEKS Current Hospital Diet Patient's current hospital diet: Diabetes Type 2 Diet Discharge Diet Recommended Diet: AHA Diet (Heart Healthy), Diabetes Type 2 Diet Pending Studies Studies pending at discharge: no Laboratory Results Hemoglobin A1c Test 01/30/17 06:48 Range/Units Estimated Average Glucose 180 mg/dl Hemoglobin A1c 7.9 H 4.5-5.6 % Medical Emergencies . Who to Call and When: Medical Emergencies: If at any time you feel your situation is an emergency, please call 911 immediately. . Non-Emergent Contact Non-Emergency issues call your: Primary Care Provider . . "Provider Documentation" section prepared by David Adams. VTE Core Measure Inpt VTE Proph given/why not?: SCD's
[2017-02-01 12:57] VITALS: BP 164/74; PULSE 59; TEMP 36.9; O2SAT 96
[2017-02-01] MEDS ORDERED: VANCOMYCIN TROUGH ONE (17:30)
--- NOTE | 2017-02-01 19:32 | Progress Note ---
Internal Med Progress Note Date of Service: Feb 01, 2017. Provider Documentation: SUBJECTIVE: patient still sees her fireball once a while no headaches afebrile no other complaints want to go home OBJECTIVE: Vital Signs-as noted below Exam: General-alert and awake and oriented. Not in distress ENT-normal hearing Neck-no neck masses Lungs-cta b/l no wheezing or crackles Heart-s1 and s2 heard, regular rate and rhythm no murmurs Abdomen-soft bowel sounds present non tender no distension Extremities-no edema no erythema Neuro-alert and awake moves extremities Lab data as noted below. ASSESSMENT & PLAN: This is a 71 year old female with PMH of DM2, HLD presents with confusion, altered mental status, headache Altered Mental Status +confusion, +fever, +headache LP shows elevated protein and glucose otherwise unremarkable ct head unremarkable esr 57 was empirically started on iv vanco, ampicillin,Rocephin and solumedrol. MRI shows questionable lesion in right temporal region. infection vs neoplastic process vs prior infarction neurology on board ID consulted and was started on iv acyclovir and hsv pcr sent again had visual and auditory hallucination today MRI better than prior one as per neurology iv vanco, ampicillin and Rocephin stopped by ID Acyclovir stopped as hsv studies negative possible migraine as per neurology to followup with neurology DM2 holding oral medications On Lantus + sliding scale hba1c 7.9 d/c on home meds HLD On statin Discharged home Vital Signs: Date Time Temp Pulse Resp B/P Pulse Ox O2 Delivery O2 Flow Rate FiO2 02/01/17 12:57 36.9 59 21 96 Room Air 02/01/17 08:19 36.9 59 21 164/74 96 Room Air 02/01/17 00:01 Room Air 01/31/17 23:50 36.4 67 20 159/69 95 Room Air 01/31/17 20:00 Room Air Lab Results: Results Past 24 Hours Test 01/31/17 19:41 02/01/17 07:35 02/01/17 11:31 Range/Units Bedside Glucose 233 139 141 70-90 mg/dl
--- NOTE | 2017-02-01 19:52 | Discharge Summary ---
Discharge Summary Date of Service Feb 01, 2017. Discharge Summary Admission Date: Jan 29, 2017 at 13:21 Discharge Date: Feb 01, 2017 Discharge Disposition: Home Principal Diagnosis: HEADACHE ALTERED MENTAL STATUS Secondary Diagnoses/Problems: DM2, HLD, HTN Procedures: CT HEAD: There is no hemorrhage, mass effect, or evidence of acute territorial ischemia by CT criteria. CAROTID DOPPLER: No evidence of hemodynamically significant carotid stenosis. MRI BRAIN: 1. Postsurgical changes involving the right ear 2. Mild restricted diffusion involving the right temporal lobe. There is also increased T2 and FLAIR signal in the region with evidence of volume loss and right temporal horn dilatation 3. Right temporal lobe gyriform enhancement. This could be neoplastic, infectious, or less likely secondary to prior infarction EEG UNREMARKABLE Consultations: NEUROLOGY ID Medication Reconciliation Continued Medications: Aspirin (Aspirin) 81 Mg Tab 81 MG PO DAILY Glipizide (Glucotrol) 5 Mg Tab 5 MG PO DAILY, TAB Lisinopril (Lisinopril) 10 Mg Tab 10 MG PO DAILY, #30 Metformin Hcl (Glucophage) 1,000 Mg Tab 1000 MG PO BID, TAB WITH MEALS Simvastatin (Zocor) 20 Mg Tab 20 MG PO QPM, TAB Admission Information HPI (per Admitting provider): This is a 71 year old female with PMH of DM2, HLD presents with confusion, altered mental status, headache - she was brought in by her who stated that for the past day, she has been acting differently - she initially started with some hallucinations; seeing things that were not there. She also now developed a severe frontal/right sided headache. As per , she was pouring her tea in her cup this morning, and kept pouring even when the cup was full - she had a blank stare on her face and was not responding. States that she had been sick the past few days - worsening nausea/vomiting the past few days. Currently, she denies any confusion - only complaint now is a headache. 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 MRI shows questionable lesion in right temporal region. infection vs neoplastic process vs prior infarction neurology on board ID consulted and was started on iv acyclovir and hsv pcr sent again had visual and auditory hallucination today MRI better than prior one as per neurology iv vanco, ampicillin and Rocephin stopped by ID Acyclovir stopped as hsv studies negative possible migraine as per neurology to followup with neurology DM2 holding oral medications On Lantus + sliding scale hba1c 7.9 d/c on home meds HLD On statin Discharged home Total time spent on discharge = 35MINUTES This includes examination of the patient, discharge planning, medication reconciliation, and communication with other providers. Discharge Instructions Please take this sheet to every appointment for the next month Discharge Instructions Admission Reason for Admission: Altered Mental Status, Headache Discharge Discharge Diagnosis / Problem: AMS, headache Discharge Goals Goal(s): Decrease discomfort, Improve function Activity Recommendations Activity Limitations: resume your previous activity . Instructions / Follow-Up Instructions / Follow-Up FOLLOWUP WITH FAMILY DOCTOR ON January AT 2:50PM. BLOOD PRESSURE AND DIABETES FOLLOWUP WITH FAMILY DOCTOR. FOLLOWUP WITH NEUROLOGY DR.Kathleen Easton Cifuentes M.D. IN 1-2 WEEKS Current Hospital Diet Patient's current hospital diet: Diabetes Type 2 Diet Discharge Diet Recommended Diet: AHA Diet (Heart Healthy), Diabetes Type 2 Diet Pending Studies Studies pending at discharge: no Laboratory Results Hemoglobin A1c Test 01/30/17 06:48 Range/Units Estimated Average Glucose 180 mg/dl Hemoglobin A1c 7.9 H 4.5-5.6 % Medical Emergencies . Who to Call and When: Medical Emergencies: If at any time you feel your situation is an emergency, please call 911 immediately. . Non-Emergent Contact Non-Emergency issues call your: Primary Care Provider . . "Provider Documentation" section prepared by David Adams. VTE Core Measure Inpt VTE Proph given/why not?: SCD's
== END 2017-02-01 13:44 | disposition home or self-care (01) | DRG 103 ==
LOC: ENRESERVTM → ENRESERVDT → CANRESERV → EDBD 08:54 → C.EDA 08:55 → UNDOADMIN 13:21 → C.2E 13:21 → EDBEDREQ 14:37 → C.4E 01-31 12:05
PROVIDERS: ADMIT Family Medicine; ATTEND Internal Medicine
PROC: 009U3ZX Drainage of Spinal Canal, Percutaneous Approach, Diagnostic (ICD-10-PCS; principal; 2017-01-30)
DX: R51 Headache (principal); Z68.36 Body mass index [BMI] 36.0-36.9, adult; E78.5 Hyperlipidemia, unspecified; Z80.9 Family history of malignant neoplasm, unspecified; Z83.3 Family history of diabetes mellitus; Z79.82 Long term (current) use of aspirin; Z79.84 Long term (current) use of oral hypoglycemic drugs; Z79.899 Other long term (current) drug therapy; E66.9 Obesity, unspecified; E78.00 Pure hypercholesterolemia, unspecified; I10 Essential (primary) hypertension; H93.8X1 Other specified disorders of right ear; D72.829 Elevated white blood cell count, unspecified; Z85.828 Personal history of other malignant neoplasm of skin; E11.9 Type 2 diabetes mellitus without complications

== ENCOUNTER 2017-11-18 08:37 | Emergency (ER) | payer OTHER ==
[~2017-11-18] VITALS: Ht 160 cm; Wt 87.8 kg
[~2017-11-18 08:37] MED LIST changes: -CIPR-255 PO; -FURO-85 PO; -GLIP-172 PO; +GLIP5TAB11 PO; +LISI-461 PO
[2017-11-18 08:40] VITALS: TEMP 37; Ht 160 cm; Wt 87.8 kg
[2017-11-18] MEDS ORDERED: ONDANSETRON INJ 2 MG/ML 2 ML VIAL IV STA (09:04)
[2017-11-18] MEDS ORDERED: GI COCKTAIL PO STA (09:04)
--- NOTE | 2017-11-18 09:10 | EMERGENCY ROOM VISIT NOTE ---
History Report prepared by Leroy: Clarissa Bonilla Under the Supervision of: Dr. Devon Pillai M.D. First contact with patient: 08:47 Chief Complaint: NAUSEA Stated Complaint: UPSET STOMACH - 7+ DAYS Nursing Triage Summary: Sick all week with sore throat, runny nose, cough, sneezing, & nausea, then last night vomiting & diarrhea started. Denies urinary symptoms. Denies abdominal pain. History of Present Illness The patient is a 72 year old white female with a past medical history of diabetes, diverticulitis, and cancer who presents to the ED with a cc of persistent vomiting beginning last night. Positive sore throat, rhinorrhea, cough, nausea, and diarrhea. Negative fever, congestion, shortness of breath, chest pain, urinary symptoms, or abdominal pain. The patient states that for the past week she had flu-like symptoms. She states that she as taking over the counter medications for her flu-like symptoms. She states that her nausea and vomiting began last evening. The patient denies any recent travel. Source of History: patient Onset: last night Position: other (global) Quality: other (vomiting) Timing: other (persistent) Associated Symptoms: + sorethroat, + cough, + nausea, + diarrhea, No fevers , No chills, No headache, No chest pain, No SOB, No abdominal pain, No urinary symptoms Note: Associated Symptoms: rhinorrhea Review of Systems See HPI for pertinent positives and negatives. A total of ten systems were reviewed and were otherwise negative. Past Medical & Surgical Medical Problems: (1) Altered mental status (2) DM (diabetes mellitus) (3) Headache Family History Cancer Diabetes mellitus Social History Smoking Status: Never Smoker Alcohol Use: none Drug Use: none Marital Status: Housing Status: lives with family Occupation Status: retired Current/Historical Medications Scheduled Lisinopril (Zestril), 10 MG PO DAILY Metformin Hcl (Glucophage), 1,000 MG PO BID Ondasetron Odt (Zofran Odt), 4 MG SL Q6H Simvastatin (Zocor), 20 MG PO HS Allergies Coded Allergies: No Known Allergies (Unverified , 11/18/17) Physical Exam Vital Signs Date Time Temp Pulse Resp B/P (MAP) Pulse Ox O2 Delivery O2 Flow Rate FiO2 11/18/17 11:49 90 16 133/64 94 11/18/17 10:28 97 16 135/64 94 Room Air 11/18/17 09:35 100 11/18/17 08:40 37.0 78 18 164/73 96 Room Air Physical Exam GENERAL: Awake, alert, well-appearing, NAD HENT: Normocephalic, atraumatic, post surgical changes to right posterior outer ear. EYES: Normal conjunctiva. Sclera non-icteric. NECK: Supple. No nuchal rigidity. FROM. RESPIRATORY: CTAB, no rhonchi, wheezing, crackles CARDIAC: RRR, no MRG ABDOMEN: Soft, NTND, BS+ MSK: No chest wall TTP, no LE edema NEURO: GCS 15, CN 2-12 intact, moves all 4s on command SKIN: No rash or jaundice noted. Medical Decision & Procedures Laboratory Results 11/18/17 09:25 Red Blood Count 4.61, Mean Corpuscular Volume 91.8, Mean Corpuscular Hemoglobin 30.6, Mean Corpuscular Hemoglobin Concent 33.3, Mean Platelet Volume 9.0, Neutrophils (%) (Auto) 92.2, Lymphocytes (%) (Auto) 4.6, Monocytes (%) (Auto) 2.6, Eosinophils (%) (Auto) 0.0, Basophils (%) (Auto) 0.1, Neutrophils # (Auto) 8.49, Lymphocytes # (Auto) 0.42, Monocytes # (Auto) 0.24, Eosinophils # (Auto) 0.00, Basophils # (Auto) 0.01 11/18/17 09:25 Test 11/18/17 09:25 White Blood Count 9.21 K/uL (4.8-10.8) Red Blood Count 4.61 M/uL (4.2-5.4) Hemoglobin 14.1 g/dL (12.0-16.0) Hematocrit 42.3 % (37-47) Mean Corpuscular Volume 91.8 fL (80-100) Mean Corpuscular Hemoglobin 30.6 pg (25-34) Mean Corpuscular Hemoglobin Concent 33.3 g/dl (32-36) Platelet Count 312 K/uL (130-400) Mean Platelet Volume 9.0 fL (7.4-10.4) Neutrophils (%) (Auto) 92.2 % Lymphocytes (%) (Auto) 4.6 % Monocytes (%) (Auto) 2.6 % Eosinophils (%) (Auto) 0.0 % Basophils (%) (Auto) 0.1 % Neutrophils # (Auto) 8.49 K/uL (1.4-6.5) Lymphocytes # (Auto) 0.42 K/uL (1.2-3.4) Monocytes # (Auto) 0.24 K/uL (0.11-0.59) Eosinophils # (Auto) 0.00 K/uL (0-0.5) Basophils # (Auto) 0.01 K/uL (0-0.2) RDW Standard Deviation 46.3 fL (36.4-46.3) RDW Coefficient of Variation 13.9 % (11.5-14.5) Immature Granulocyte % (Auto) 0.5 % Immature Granulocyte # (Auto) 0.05 K/uL (0.00-0.02) Anion Gap 9.0 mmol/L (3-11) Est Creatinine Clear Calc Drug Dose 75.2 ml/min Estimated GFR () 98.6 Estimated GFR (Non- 85.1 BUN/Creatinine Ratio 18.5 (10-20) Calcium Level 8.5 mg/dl (8.5-10.1) Total Bilirubin 0.4 mg/dl (0.2-1) Direct Bilirubin < 0.1 mg/dl (0-0.2) Aspartate Amino Transf (AST/SGOT) 85 U/L (15-37) Alanine Aminotransferase (ALT/SGPT) 54 U/L (12-78) Alkaline Phosphatase 65 U/L (45-117) Troponin I < 0.015 ng/ml (0-0.045) Total Protein 7.4 gm/dl (6.4-8.2) Albumin 3.4 gm/dl (3.4-5.0) Lipase 254 U/L (73-393) Laboratory results reviewed by me Medications Administered Medications (Trade) Dose Ordered Sig/Vangie Route Start Time Stop Time Status Last Admin Dose Admin Ondansetron HCl (Zofran Inj) 4 mg NOW STAT IV 11/18/17 09:04 11/18/17 09:05 DC 11/18/17 09:24 4 MG Famotidine (Pepcid Tab) 20 mg NOW ONCE PO 11/18/17 09:15 11/18/17 09:16 DC 11/18/17 09:26 20 MG Al Hydroxide/Mg Hydroxide (Maalox Susp) 30 ml STK-MED ONCE .ROUTE 11/18/17 09:22 11/18/17 09:23 DC 11/18/17 09:26 30 ML Lidocaine HCl (Viscous Lidocaine 2% Soln) 20 ml STK-MED ONCE .ROUTE 11/18/17 09:22 11/18/17 09:23 DC 11/18/17 09:26 20 ML ECG Indication: vomiting Rate (beats per minute): 101 Rhythm: sinus tachycardia Findings: T-wave inversion (in lead 3), other (normal intervals, normal axis) ED Course 0859: The patient was evaluated in room A9B. A complete history and physical exam was performed. 1101: I reevaluated the patient and she is feeling much better. I discussed the test results with her and I discussed the treatment plan. She verbalized complete understanding and agreement. She is ready to go home. Medical Decision Differential diagnosis: Etiologies such as gastroenteritis, food borne illness, infections, appendicitis , diverticulitis, inflammatory bowel disease, obstruction, GI bleed, biliary pathology, as well as others were entertained. The patient is a 72 year old white female with a past medical history of diabetes, diverticulitis, and cancer who presents to the ED with a cc of persistent vomiting beginning last night. Patient was seen and evaluated the bedside. Patient did complain of some nausea with some vomiting. Patient had a recent bowel movement. Patient did have blood work that was completed. Initially plain films were ordered however , after reassessment of the patient the patient had actually no complaints of a soft abdomen. Patient's LFTs and lipase normal. Patient had a normal white blood cell count. Patient did have mildly elevated blood glucose. Patient had a normal anion gap and I do not believe the patient is in DKA. Given that the patient was feeling well I did not believe that she required further imaging at this time. Patient was also worked up for possible atypical chest pain that a nonischemic EKG with a negative troponin. This is less likely. Patient was deemed suitable for outpatient follow-up and treatment. Patient was agreeable to this plan of care. Patient was given strict follow-up, discharge, and return precautions. All questions were answered. Patient was deemed suitable for outpatient follow-up at this time. Patient agreed with the plan of care and was safely discharged home. Medication Reconcilliation Current Medication List: was personally reviewed by me Blood Pressure Screening Patient's blood pressure: Elevated blood pressure Blood pressure disposition: Elevated BP felt to be situational, Did not require urgent referral Impression Primary Impression: Gastritis Additional Impressions: Nausea & vomiting Hyperglycemia Scribe Attestation The scribe's documentation has been prepared under my direction and personally reviewed by me in its entirety. I confirm that the note above accurately reflects all work, treatment, procedures, and medical decision making performed by me. Departure Information Dispostion Home / Self-Care Prescriptions Ondasetron Odt (ZOFRAN ODT) 4 Mg Tab 4 MG SL Q6H for Nausea, #6 TAB Prov: Devon Pillai M.D. 11/18/17 Referrals Jesús Ford M.D. (PCP) Forms HOME CARE DOCUMENTATION FORM, IMPORTANT VISIT INFORMATION Patient Instructions ED Diet Whipple, ED Gastritis, My [facility] Additional Instructions Please return to the emergency department if you have worsening or recurrent symptoms not amenable to at-home treatment. Please call for a follow-up appointment with her primary care physician. Please take your medications as prescribed. If you have other concerns and/or complaints please feel free to also call your primary care physician's office or return the ED for further evaluation, management, and treatment. You may take tylenol 1000 mg every 6 hours as needed for pain. Consider a bland diet. Try clear liquids and then advance her diet as tolerated. Also consider taking an antacid daily which would be something like a Pepcid or Zantac. Take your medications as prescribed. You have been examined and treated today on an emergency basis only. This is not a substitute for, or an effort to provide, complete comprehensive medical care. It is impossible to recognize and treat all injuries or illnesses in a single emergency department visit. It is therefore important that you follow up closely with [facility], your PCP, and/or your specialist(s). Call as soon as possible for an appointment. Thank you for your time and consideration. I look forward to speaking with you again soon. Please don't hesitate to call us if you have any questions. Problem Qualifiers Primary Impression: Gastritis Gastritis type: unspecified gastritis Chronicity: acute Gastritis bleeding : presence of bleeding unspecified Qualified Codes: K29.00 - Acute gastritis without bleeding Additional Impressions: Nausea & vomiting Vomiting type: unspecified Vomiting Intractability: non-intractable Qualified Codes: R11.2 - Nausea with vomiting, unspecified
[2017-11-18] MEDS ORDERED: FAMOTIDINE 20 MG TAB PO ONE (09:15)
[2017-11-18] MEDS ORDERED: LIDOCAINE HCL 2% VISC SOLN 20 ML UDC ONE (09:22)
[2017-11-18] MEDS ORDERED: ALUMINUM/MAGNESIUM SUSP 30 ML UDC ONE (09:22)
[2017-11-18 09:40] LABS: BASO % 0.1 %; BASO ABS # 0.01 K/uL (0-0.2); COMPLETE YES; HEMATOCRIT 42.3 % (37-47); IG% 0.5 %; LYMPH % 4.6 %; LYMPH ABS # 0.42 K/uL (1.2-3.4); MEAN CELL VOLUME 91.8 fL (80-100); MEAN CORPUSCULAR HEMOGLOBIN 30.6 pg (25-34); MEAN CORPUSCULAR HGB CONC 33.3 g/dl (32-36); MONO % 2.6 %; NEUT % 92.2 %; PLATELET COUNT 312 K/uL (130-400); RED BLOOD COUNT 4.61 M/uL (4.2-5.4); WHITE BLOOD COUNT 9.21 K/uL (4.8-10.8)
[2017-11-18] MEDS ORDERED: METF-384 PO (09:53)
[2017-11-18] MEDS ORDERED: LISI-461 PO (09:53)
[2017-11-18] MEDS ORDERED: SIMV20TA2 PO (09:53)
[2017-11-18 09:57] LABS: ALT/SGPT 54 U/L (12-78); BLOOD UREA NITROGEN 13 mg/dl (7-18); BUN/CREATININE RATIO 18.5 (10-20); CALCIUM 8.5 mg/dl (8.5-10.1); CARBON DIOXIDE 25 mmol/L (21-32); CHLORIDE 101 mmol/L (98-107); CREATININE 0.71 mg/dl (0.60-1.20); GLUCOSE 235 mg/dl (70-99); POTASSIUM 3.5 mmol/L (3.5-5.1); SODIUM 135 mmol/L (136-145)
[2017-11-18 10:02] LABS: ALKALINE PHOSPHATASE 65 U/L (45-117); AST/SGOT 85 U/L (15-37)
[2017-11-18] MEDS ORDERED: ONDA4TAB10 SL (11:31)
[2017-11-18 11:49] VITALS: BP 133/64; PULSE 90; O2SAT 94
--- NOTE | 2017-11-18 14:35 | DIAGNOSTIC IMAGING REPORT ---
ABDOMEN 2VIEW W/PA CHEST RTN CLINICAL HISTORY: Pain, nausea, diarrhea. COMPARISON STUDY: Chest x-ray dated 01/29/2017 FINDINGS: The cardiac and mediastinal contours remain stable. There is stable left mid and lower lung zone atelectasis/scarring. There is no free intraperitoneal air. There are no abnormally dilated loops of large or small bowel. There are no transition zones indicate bowel obstruction. There is a scoliosis. There are few scattered air-fluid levels, the most prominent of which is located within the right lower quadrant. This is likely colonic. IMPRESSION: No evidence of bowel obstruction. No evidence of free air. Electronically signed by: Flip Delatorre M.D. 11/18/2017 2:34 PM Dictated Date/Time: 11/18/2017 2:33 PM
== END 2017-11-18 11:50 | disposition home or self-care (01) ==
LOC: C.EDB 08:38 → C.EDA 11:50
DX: K29.00 Acute gastritis without bleeding (principal); E11.65 Type 2 diabetes mellitus with hyperglycemia; K57.92 Diverticulitis of intestine, part unspecified, without perforation or abscess without bleeding; C80.1 Malignant (primary) neoplasm, unspecified; R03.0 Elevated blood-pressure reading, without diagnosis of hypertension

== ENCOUNTER 2018-03-23 09:57 | Emergency (ER) | payer OTHER ==
[~2018-03-23 09:57] MED LIST changes: -ASPI1TAB83 PO; -GLIP5TAB11 PO; +METF-384 PO; -METF1000 PO; +ONDA4TAB10 SL
[2018-03-23 10:03] VITALS: TEMP 36.9; Ht 162.6 cm
[2018-03-23] MEDS ORDERED: HYDROCODONE/ACETAMIN 5/325MG TAB PO STA (10:48)
[2018-03-23] MEDS ORDERED: GLIP2.5T11 PO (11:11)
--- NOTE | 2018-03-23 11:28 | DIAGNOSTIC IMAGING REPORT ---
L ANKLE MIN 3 VIEWS ROUTINE CLINICAL HISTORY: L ankle trauma trauma COMPARISON: None. DISCUSSION: Oblique fracture distal fibula. Ankle mortise is aligned anatomically. Generalized soft tissue edema. Heel spur. IMPRESSION: 1. Oblique fracture distal fibula. 2. Generalized soft tissue edema. 3. Heel spur. The above report was generated using voice recognition software. It may contain grammatical, syntax or spelling errors. Electronically signed by: João Davis M.D. 03/23/2018 11:27 AM Dictated Date/Time: 03/23/2018 11:26 AM
--- NOTE | 2018-03-23 12:05 | EMERGENCY ROOM VISIT NOTE ---
History Report prepared by Leroy: Jeri Eli Under the Supervision of: Dr. Brooke Mccord M.D. First contact with patient: 10:36 Chief Complaint: LEG PAIN,LEG INJURY Stated Complaint: FELL HURT LEFT LEG History of Present Illness The patient is a 72 year old female who presents to the Emergency Room with complaints of an episode of left leg pain starting 3 days ago. The patient states that she had to go to the bathroom and she slipped in the snow on an incline. She reports that she hit her head and hurt her leg. She states that she has just been trying to deal with it and taking Ibuprofen for the pain. The patient complains of the pain being worse with movement, being swollen, and starting to itch this morning. The patient denies a headache and taking blood thinners. She notes that she has right hip pain, but states that it is from compensating when she walks for her left leg pain. Source of History: patient Onset: 3 days ago Position: leg (left) Quality: other (swollen, itchy) Timing: other (episode) Modifying Factors (Worsening): movement Associated Symptoms: No headache Review of Systems See HPI for pertinent positives & negatives. A total of 6 systems reviewed and were otherwise negative. Past Medical & Surgical Medical Problems: (1) Altered mental status (2) DM (diabetes mellitus) (3) Headache (4) History of cancer Family History Cancer Diabetes mellitus Social History Smoking Status: Never Smoker Alcohol Use: none Drug Use: none Marital Status: Housing Status: lives with family Occupation Status: retired Current/Historical Medications Scheduled Glipizide (Glipizide Er), 2.5 MG PO DAILY Lisinopril (Zestril), 10 MG PO DAILY Metformin Hcl (Glucophage), 1,000 MG PO BID Simvastatin (Zocor), 20 MG PO HS Allergies Coded Allergies: No Known Allergies (Unverified , 03/23/18) Physical Exam Vital Signs Date Time Temp Pulse Resp B/P (MAP) Pulse Ox O2 Delivery O2 Flow Rate FiO2 03/23/18 12:24 76 16 161/64 98 03/23/18 10:27 84 16 156/73 96 Room Air 03/23/18 10:03 36.9 82 18 147/64 97 Room Air Physical Exam Vital signs reviewed. General: Well-appearing, in no significant distress. Musculoskeletal: Atraumatic, no peripheral edema. Swelling to the left ankle with ecchymosis. Tenderness to the lateral malleolus. Neurovascularly intact distally. Neurologic: Patient awake alert and oriented x 3 Skin: Warm, dry, no rash Medical Decision & Procedures ER Provider Diagnostic Interpretation: Radiology results as stated below per my review and radiologist interpretation: L ANKLE MIN 3 VIEWS ROUTINE CLINICAL HISTORY: L ankle trauma trauma COMPARISON: None. DISCUSSION: Oblique fracture distal fibula. Ankle mortise is aligned anatomically. Generalized soft tissue edema. Heel spur. IMPRESSION: 1. Oblique fracture distal fibula. 2. Generalized soft tissue edema. 3. Heel spur. The above report was generated using voice recognition software. It may contain grammatical, syntax or spelling errors. Electronically signed by: João Davis M.D. 03/23/2018 11:27 AM Dictated Date/Time: 03/23/2018 11:26 AM Medications Administered Medications (Trade) Dose Ordered Sig/Vangie Route Start Time Stop Time Status Last Admin Dose Admin Acetaminophen/ Hydrocodone Bitart ([place] 5/325 Tab) 1 tab NOW STAT PO 03/23/18 10:48 03/23/18 10:49 DC 03/23/18 11:12 1 TAB ED Course 1044: Past medical records reviewed. The patient was evaluated in room C1B. A complete history and physical examination was performed. 1048: Ordered Hydrocodone Bitart/ Acetaminophen 1 tab PO. 1119: Upon reevaluation, the patient appeared to have improvement of her symptoms. I discussed findings with her. She verbalized agreement of the treatment plan. The patient was discharged home. Medical Decision Differential diagnosis: Etiologies such as fracture, dislocation, neurovascular compromise, compartment syndrome, soft tissue injury, as well as others were entertained. This patient was evaluated and appeared to be in no significant distress. Evaluation of the left lower extremity reveals swelling over the lateral malleolus with some ecchymosis. X-ray confirms a distal fibular fracture. Patient was placed in a posterior and sugar tong splint and advised to remain nonweightbearing. She was given crutches with gait training. Patient will continue Tylenol as needed for pain. She was given one [place] tablet prior to x- ray in the department. Patient states she does not have significant pain unless she is attempting to bear weight. She was referred to orthopedics for definitive management. There is no evidence of open fracture at this time. Patient and expressed an understanding of the instructions and agree. They will return to the ER for worsening of symptoms or any medical concerns. Medication Reconcilliation Current Medication List: was personally reviewed by me Blood Pressure Screening Patient's blood pressure: Elevated blood pressure Blood pressure disposition: Elevated BP felt to be situational Impression Primary Impression: Ankle fracture, lateral malleolus, closed Scribe Attestation The scribe's documentation has been prepared under my direction and personally reviewed by me in its entirety. I confirm that the note above accurately reflects all work, treatment, procedures, and medical decision making performed by me. Departure Information Dispostion Home / Self-Care Referrals Jesús Ford M.D. (PCP) Forms HOME CARE DOCUMENTATION FORM, IMPORTANT VISIT INFORMATION Patient Instructions My [facility] Additional Instructions Diagnosis: Distal fibular fracture Tylenol 650 mg every 6 hours as needed for pain. Ice and elevate the ankle as much as possible. Do not bear weight on the left leg, use crutches for ambulation. He may require assistance. Follow-up with orthopedics, Dr. Duarte. Please see [facility] contact information below. Return to the emergency department for worsening of symptoms or any medical concerns.
[2018-03-23 12:24] VITALS: BP 161/64; PULSE 76; O2SAT 98
== END 2018-03-23 12:24 | disposition home or self-care (01) ==
LOC: C.EDB 09:59 → C.EDC 12:24
DX: S82.62XA Displaced fracture of lateral malleolus of left fibula, initial encounter for closed fracture (principal); W00.2XXA Other fall from one level to another due to ice and snow, initial encounter; E11.9 Type 2 diabetes mellitus without complications; Z79.84 Long term (current) use of oral hypoglycemic drugs

== ENCOUNTER → 2018-03-24 | Outpatient (CLI) | payer OTHER ==
[~2018-03-24] MED LIST changes: +GLIP2.5T11 PO; -ONDA4TAB10 SL
== END | disposition home or self-care (01) ==
LOC: C.CPL 13:35
DX: S82.832A Other fracture of upper and lower end of left fibula, initial encounter for closed fracture (principal); X58.XXXA Exposure to other specified factors, initial encounter

== ENCOUNTER 2025-01-16 10:56 | Inpatient (IN) ==
--- OUTSIDE RECORDS SUMMARY | 2025-01-16 11:02 | External Medical Summary | Summary of Care ---
Author Name Unknown Organization [facility] Address [address] [facility] [place] [address] Phone [phone] Care Team Providers Care Ict Support And Test Engineers Name Role Phone Jere Miramontes MD Primary Care Provide r Reason for Visit * Reason Comments eRx-Medication Refill Encounter Details Date Type Department Care Team (Late st Contact Info) Description 09/20/2024 Refill Family Medicine [address] [address] Jere Miramontes MD [address] [place] [address] [place] [address] Type 2 diabetes, HbA1C goal < 8% (HCC); Type 2 diabetes, HbA1C goal < 8% Allergies Active Allergy Reactions Criticality Noted Date Comments No Known Drug Allergy 03/01/2011 documented as of this encounter (statuses as of 09/29/2024) Medications Medication Sig Dispensed Refills Start Date End Date Status triamcinolone acetonide (ARISTOCORT) 0.1 % cream Apply topically to affected area 2 times a day. To affected area. 15 g 5 07/01/2018 Active metFORMIN HCl 1000 MG Oral Tablet (Glucophage)Indicati ons:Type 2 diabetes, HbA1C goal < 8% (HCC),Type 2 diabetes, HbA1C goal < 8% (HCC) TAKE 1 TABLET TWICE A DAY WITH THE MORNING AND EVENING MEALS 180 Tablet 1 08/18/2024 Active Jardiance 10 MG Oral Tablet (Empagliflozin)Indic ations:Type 2 diabetes mellitus with stage 3a chronic kidney disease, without long-term current use of insulin (HCC),Chronic kidney disease, stage 3a (HCC) TAKE 1 TABLET IN THE MORNING 90 Tablet 1 08/18/2024 Active Irbesartan 150 MG Oral Tablet (Avapro)Indications: Primary hypertension TAKE 1 TABLET BEFORE BEDTIME 90 Tablet 2 08/18/2024 Active Simvastatin 20 MG Oral Tablet (Zocor)Indications:D yslipidemia, goal LDL below 100,Hyperlipidemia with target LDL less than 100 TAKE 1 TABLET AT BEDTIME 90 Tablet 1 08/18/2024 Active documented as of this encounter (statuses as of 09/29/2024) Active Problems Problem Noted Date Diagnosed Date Chronic kidney disease, stage 3a 05/16/2021 Overview: Per CKD protocol Type 2 diabetes mellitus wit h stage 3a chronic kidney disease 04/11/2021 Overview: Per CKD protocol Primary osteoarthritis of right knee 03/29/2021 Overview: 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 Type 2 diabetes, HbA1C goal < 8% 02/06/2011 Hyperlipidemia with target LDL less than 100 Overview: ICD-10 update of inactive term BMI 39.0-39.9,adult documented as of this encounter (statuses as of 09/29/2024) Resolved Problems Problem Noted Date Diagnosed Date Resolved Date Diabetes mellitus with stage 3 chronic kidney disease 02/06/2021 04/13/2021 Overview: Per CKD protocol Encounter for examination fo r normal comparison and control in clinical research program 07/11/2018 07/17/2018 Overview: Diagnosis changed due to Research Module. Go to Snapshot for study details. 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 Other acute infections of external ear 09/04/2011 08/22/2015 Basal cell carcinoma (BCC) o f skin of ear and external auditory canal 09/04/2011 08/22/2015 Overview: ICD-10 update of inactive term Malignant neoplasm of external ear 02/16/2011 01/01/2018 Edema extremities 01/01/2018 documented as of this encounter (statuses as of 09/29/2024) Immunizations Name Administration Dates Next Due COVID-19 mRNA, LNP-s, No Pre serve, 2-Dose Series (Moderna) 03/17/2021,02/10/2021 COVID-19, mRNA, LNP-s, PF, B ooster, 100mcg/0.5mg (Moderna) 11/07/2021 Pneumococcal Polysaccharide PPV23 (Pneumovax) 07/01/2012(Deferred: Patient Refused) documented as of this encounter Social History Tobacco Use Types Packs/Day Years Used Date Smoking Tobacco: Never Smokeless Tobacco: Never Alcohol Use Standard Drinks/Week Comments No 0 (1 standard drink = 0.6 oz pur e alcohol) PHQ-2 Answer Date Recorded PHQ-2 Score -1 08/21/2020 Utilities Answer Date Recorded Do you have trouble paying y our heating, water, or electric bill? (Adult - for ages 18 years and over) Not on file 05/19/2024 Is your family able to pay t he heat, water, or electric bill? (Household - for ages 0-17 years) Not on file 05/19/2024 Does your family have access to good internet? (Household - for ages 0-17 years) Not on file 05/19/2024 Social Connections Answer Date Recorded How often do you feel lonely or isolated from those around you? (Adult - for ages 18 years and over) Not on file 05/19/2024 Sex and Gender Information Value Date Recorded Sex Assigned at Not on file Gender Identity Not on file Sexual Orientation Not on file Job Start Date Occupation Industry Not on file Not on file Not on file documented as of this encounter Miscellaneous Notes * Telephone Encounter - Macy Babb outsole paraffiner - 09/29/2024 3:42 PM EDT Pt is very happy that she does not need this medication Thank you for your assistance Macy Babb Aircraft Structural Fitter [facility] 09/29/2024,3:43 PM * Telephone Encounter - Gissell Stevenson PHARM Tech - 09/29/2024 3:38 PM EDT Pt called in to see why her Glipizide was denied a refill, advised that the dr said they stopped it on 06/24/24, pt doesn't remember that conversation, transferred her to the office. Thank you, Gissell Stevenson Control Equipment Electrician I [facility] 09/29/2024,3:40 PM * Telephone Encounter - Shlomo Tipton [facility] - 09/22/2024 2:21 AM EDTRefused Prescriptions: Disp Refills glipiZIDE 10 MG Oral Tablet (Glucotrol) 90 Tab*1 Sig: TAKE 1 TABLET EVERY MORNINGRefused By: SHLOMO TIPTON for Refusal: Course of treatment completeReason for Refusal Comment: pt stopped 06/24/24 * Telephone Encounter - Shlomo Tipton [facility] - 09/22/2024 2:18 AM EDT Glipizide was stopped 06/24/24 with pt having A1c tested 6.4%. hold for 3 months and to be retested at that time Shlomo Tipton [facility] Clinical Pharmacist Telepharmacy [phone] 09/22/2024 2:20 AM documented in this encounter Plan of Treatment Upcoming Encounters Date Type Department Care Team (Late st Contact Info) Description 03/03/2025 12:00 PM EDT Office Visit Family Medicine [address] [place] [phone] Jere Miramontes MD [address] [place] [address] [place] [address] Health Maintenance Due Date Last Done Comments DXA Scan 1945 Fasting Serum Ferritin Hereditary Hemochromatosis (HFE) Annual,All Ages 1945 Pneumococcal Vaccine: 65+ Years (1 of 2 - PCV) 1951 DTap/Tdap Vaccines (1 - Tdap) 1964 Zoster Vaccines (1 of 2) 1995 Adult Wellness Visit 2011 Depression Screening 07/06/2021 07/06/2020 Transferrin Saturation Hereditary Hemochromatosis (HFE) Annual,All Ages 01/22/2024 01/22/2023 B-12 07/23/2024 07/23/2023, 06/02, 01/18/2021, Additional history exists CKD PHOS USE SMARTSET 33208 07/23/202407/03, 06/26/2022, 01/18/2022, Additional history exists COVID-19 Vaccine (4 - 2023-2 5 season) 2024 11/07/2021, 03/17/2021, 02/10/2021 Influenza Vaccine (FLU shot) (#1) 2024 01/01/2018 (Refused) GFR 12/23/2024 06/22/2024, 03/02, 01/22/2023, Additional history exists HbA1c 12/23/2024 06/22/2024, 07/03, 01/22/2023, Additional history exists Albumin/Creatinine Ratio 06/22/2025 024, 07/23/2023, 06/26/2022, Additional history exists CKD HGB USE SMARTSET 06383 06/22/202506/22, 06/22/2024, 07/23/2023, Additional history exists Diabetic Eye Exam 06/22/2025 06/22/2024, , 01/18/2022, Additional history exists Diabetic Foot Exam 06/22/2025 06/22/2024, 0 07/23/2023, 01/18/2021, Additional history exists HPV (Gardasil) Vaccine Aged Out No lo nger eligible based on patient's age to complete this topic Hepatitis B Vaccine Aged Out No longe r eligible based on patient's age to complete this topic MENINGOCOCCAL (MENACTRA/MENVEO) Aged Out No longer eligible based on patient's age to complete this topic documented as of this encounter Medical Devices Not on filedocumented as of this encounter Visit Diagnoses Diagnosis Type 2 diabetes, HbA1C goal < 8% Type II or unspecified type diabetes mellitus without mention of complication, not stated as uncontrolled documented in this encounter Advance Directives * Full Code (Latest Code Status on File) Date Activated Date Inactivated Comments 10/11/2011 11:48 AM 10/12/2011 3:41 PM This orde r reflects the patients wishes and were consensually agreed upon. Care Teams Ict Support And Test Engineers Relationship Specialty Start Date End Date Jere Miramontes MD [address] [place] [address] [place] [address] PCP - General Family Medicine 06/22/24 documented as of this encounter
--- OUTSIDE RECORDS SUMMARY | 2025-01-16 11:02 | External Medical Summary | Summary of Care ---
Author Name Unknown Organization [facility] Address [address] [facility] [place] [address] Phone [phone] Care Team Providers Care Drop Wirer Name Role Phone Jere Miramontes MD Primary Care Provide r Reason for Referral * Medication Prior Authorization - Pending Review Specialty Diagnoses / Procedures Referred By Contac t Referred To Contact Diagnoses T12 compression fracture, initial encounter (HCC) Diann Irwin MD [address] [place] [address] [place] [address] Phone: tel: fax: Referral ID Status Reason Start Date Expiration Date V isits Requested Visits Authorized [id number] Pending Review 999 999 Reason for Visit * Reason Comments Acute Encounter Details Date Type Department Care Team (Late st Contact Info) Description 01/15/2025 10:20 AM EST Office Visit Family Medicine [address] [place] [phone] Diann Irwin MD [address] [place] [address] [place] [address] T12 compression fracture, initial encounter (HCC)*; Chronic kidney disease, stage 3a ([facility]); Loss of weight; Type 2 diabetes mellitus with stage 3a chronic kidney disease, without long-term current use of insulin ([facility]) Allergies Active Allergy Reactions Criticality Noted Date Comments No Known Drug Allergy 03/01/2011 documented as of this encounter (statuses as of 01/15/2025) Medications triamcinolone acetonide (ARISTOCORT) 0.1 % cream Apply topically to affected area 2 times a day. To affected area. 15 g 5 8 Active metFORMIN HCl 1000 MG Oral Tablet (Glucophage)Indic ations:Type 2 diabetes, HbA1C goal < 8% ([facility]),Type 2 diabetes, HbA1C goal < 8% ([facility]) TAKE 1 TABLET TWICE A DAY WITH THE MORNING AND EVENING MEALS 180 Tablet 1 4 Active Jardiance 10 MG Oral Tablet (Empagliflozin)In dications:Type 2 diabetes mellitus with stage 3a chronic kidney disease, without long-term current use of insulin ([facility]),Chronic kidney disease, stage 3a ([facility]) TAKE 1 TABLET IN THE MORNING 90 Tablet 1 4 Active Irbesartan 150 MG Oral Tablet (Avapro)Indicatio ns:Primary hypertension TAKE 1 TABLET BEFORE BEDTIME 90 Tablet 2 4 Active Simvastatin 20 MG Oral Tablet (Zocor)Indication s:Dyslipidemia, goal LDL below 100,Hyperlipidemi a with target LDL less than 100 TAKE 1 TABLET AT BEDTIME 90 Tablet 1 4 Active oxyCODONE-Acetami nophen 5-325 MG Oral Tablet (Percocet) Take one tablet by mouth every 6 hours as needed for pain for 5 days 5 Active Calcitonin ([place]) 200 UNIT/ACT Nasal Solution (Fortical) Administer 1 [place] into one nostril in the morning. alternate nostrils.. 3 mL 11 5 Active Boost High Protein Oral Liquid One can three times daily with meals 600 mL 5 5 Active oxyCODONE HCl 5 MG Oral Tablet (Oxy IR)Indications:T1 2 compression fracture, initial encounter ([facility]) Take 1 Tablet by mouth every 6 hours as needed for Pain, Severe. 25 Tablet 5 Active Hospital, Clinic, or Other Facility Administered Medication Ordered Dose Route Frequency Start Date End Date Status keTORolac (Toradol) 30 MG/ML inj 30 mgIndications:T12 compression fracture, initial encounter ([facility]) 30 mg IM ONCE 01/15/2025 01/15/2025 E nded documented as of this encounter (statuses as of 01/15/2025) Active Problems Problem Noted Date Diagnosed Date Chronic kidney disease, stage 3a 05/16/2021 Overview: Per CKD protocol Type 2 diabetes mellitus wit h stage 3a chronic kidney disease 04/11/2021 Overview: Per CKD protocol Primary osteoarthritis of right knee 03/29/2021 Overview (07/18/2021): 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 Type 2 diabetes, HbA1C goal < 8% 02/06/2011 Hyperlipidemia with target LDL less than 100 Overview (04/02/2016): ICD-10 update of inactive term BMI 39.0-39.9,adult documented as of this encounter (statuses as of 01/15/2025) Resolved Problems Problem Noted Date Diagnosed Date Resolved Date Diabetes mellitus with stage 3 chronic kidney disease 02/06/2021 04/13/2021 Overview: Per CKD protocol Encounter for examination fo r normal comparison and control in clinical research program 07/11/2018 07/17/2018 Overview (03/20/2021): Diagnosis changed due to Research Module. Go to Snapshot for study details. Altered mental status 01/29/20172017 Overview (02/04/2017): [facility] S/P radiation therapy 05/11/20162019 Bone necrosis 05/12/2013 [...] ear and external auditory canal 09/04/2011 08/22/2015 Overview (09/03/2022): ICD-10 update of inactive term Malignant neoplasm of external ear 02/16/2011 01/01/2018 Edema extremities 01/01/2018 documented as of this encounter (statuses as of 01/15/2025) Immunizations Name Administration Dates Next Due COVID-19 [...] years and over) Not on file 05/19/2024 Comments No Sex and Gender Information Value Date Recorded Sex Assigned at Not on file Legal Sex Female 5:26 AM EST Gender Identity Not on file Sexual Orientation Not on file documented as of this encounter Last Filed Vital Signs Vital Sign Reading Time Taken Comments Blood Pressure 118/70 01/15/2025 9:58 AM EST Pulse 65 01/15/2025 9:58 AM EST Temperature 35.7 C (96.2 F) 01/15/2025 9:58 AM ES T Respiratory Rate - - Oxygen Saturation 96% 01/15/2025 9:58 AM EST Inhaled Oxygen Concentration - - Weight 61.2 kg (135 lb) 01/15/2025 9:58 AM EST Height 156.2 cm (5' 1.5") 01/15/2025 9:58 AM EST Body Mass Index 25.09 01/15/2025 9:58 AM EST documented in this encounter Progress Notes * Gerald Monae, Diann Li MD - 01/15/2025 10:13 AM EST Images from the original note were not included. History of Present Illness Jessica Fraga is a 79 year old female that presents for Acute Fell on . Fell off a stool. Went to [facility] for xrays. Seen in the ED for continued pain, found to have a T12 acute compression fracture on CT scan. Trying to use the recliner, helps. Down from 185 to 135 today in the last 2 years without trying. Especially while she's having the pain, has been difficult to make herself eat. Physical Exam BP 118/70 | Pulse 65 | Temp 96.2 F (35.7 C) (Infrared ) | Ht 5' 1.5" (1.562 m) | Wt 135 lb (61.2 kg) | SpO2 96% | BMI 25.09 kg/m | BSA 1.63 m Physical Exam Vitals and nursing note reviewed. Constitutional: General: She is not in acute distress. HENT: Head: Normocephalic and atraumatic. Right Ear: Tympanic membrane normal. Left Ear: Tympanic membrane normal. Mouth/Throat: Mouth: Mucous membranes are moist. Eyes: Extraocular Movements: Extraocular movements intact. Neck: Thyroid: No thyromegaly. Cardiovascular: Rate and Rhythm: Normal rate and regular rhythm. Pulmonary: Breath sounds: Normal breath sounds. No wheezing or rhonchi. Abdominal: General: Bowel sounds are normal. There is no distension. Palpations: Abdomen is soft. Tenderness: There is no abdominal tenderness. Musculoskeletal: General: Normal range of motion. Cervical back: Normal range of motion and neck supple. Right lower leg: No edema. Left lower leg: No edema. Skin: General: Skin is warm and dry. Findings: No lesion or rash. Neurological: General: No focal deficit present. Mental Status: She is alert and oriented to person, place, and time. Psychiatric: Mood and Affect: Mood normal. Behavior: Behavior normal. I have reviewed most recent labs BMP Assessment and Plan T12 compression fracture, initial encounter (HCC) Acute compression fracture. Having significant pain. Will try miacalin, refilled oxycodone for 25 tabs, and will check BMP to ensure kidney function ok. If so, could do a few days of PO toradol or another NSAID. Toradol IM today Chronic kidney disease, stage 3a ([facility]) Loss of weight Has lost about 50 lbs in the last 2 years. Check labs, keep follow up with PCP as well for further workup - TSH WITH FREE T4 IF INDICATED; Future - COMPREHENSIVE METABOLIC PANEL; Future - CBC WITH WBC DIFFERENTIAL; Future - HEMOGLOBIN A1C; Future Type 2 diabetes mellitus with stage 3a chronic kidney disease, without long-term current use of insulin ([facility]) - HEMOGLOBIN A1C; Future Wrap-Up Follow Up: Return for with PCP in 6 weeks as scheduled. | For: with PCP in 6 weeks as scheduled Time: I spent a total of 30-39 minutes (exact time 24 mins) on the date of service in preparation, delivery, and documentation of the care provided to Jessica Fraga excluding any time spent in the performance of separately billed services. documented in this encounter Nursing Notes * Terri Man CMA - 01/15/2025 9:59 AM EST Pt reports that she had the flu for a week and she got off of the stool at her counter and fell on the floor. Went to [facility] they where unable to egt xrays, went to [facility] from there and they found a fractured vertebrae was given oxycodone-Act 5-325. Reports also not been eating anything at all since before fall wants something that makes her eat, reports when she forces herself to eat shethrows up documented in this encounter Plan of Treatment Upcoming Encounters Date Type Department Care Team (Late st Contact Info) Description 03/03/2025 12:00 PM EDT Office Visit Family Medicine [address] [place] [phone] Jere Miramontes MD [address] [place] [address] [place] [address] Pending Results Name Type Priority Associated Diagnoses Date /Time TSH WITH FREE T4 IF INDICATED Lab Routine Loss of weight 01/15/2025 10:59 AM EST COMPREHENSIVE METABOLIC PANEL Lab Routine Loss of weight 01/15/2025 10:59 AM EST CBC WITH WBC DIFFERENTIAL Lab Routine Loss of weight 01/15/2025 10:59 AM EST HEMOGLOBIN A1C Lab Routine Loss of weight Type 2 diabetes mellitus with stage 3a chronic kidney disease, without long-term current use of insulin (HCC) 01/15/2025 10:59 AM EST Scheduled Orders Name Type Priority Associated Diagnoses Orde r Schedule TSH WITH FREE T4 IF INDICATED Lab Routine Loss of weight Expected: 01/15/2025 (Approximate), Expires: 01/15/2026 COMPREHENSIVE METABOLIC PANEL Lab Routine Loss of weight Expected: 01/15/2025 (Approximate), Expires: 02/12/2026 CBC WITH WBC DIFFERENTIAL Lab Routine Loss of weight Expected: 01/15/2025 (Approximate), Expires: 01/15/2026 HEMOGLOBIN A1C Lab Routine Loss of weight Type 2 diabetes mellitus with stage 3a chronic kidney disease, without long-term current use of insulin (HCC) Expected: 01/15/2025 (Approximate), Expires: 01/15/2026 Health Maintenance Due Date Last Done Comments DXA Scan 1945 Fasting Serum Ferritin Hereditary Hemochromatosis (HFE) Annual,All Ages 1945 DTap/Tdap Vaccines (1 - Tdap) 1964 Pneumococcal Vaccine: 50+ Years (1 of 2 - PCV) 1964 Zoster Vaccines (1 of 2) 1995 Adult Wellness Visit 2011 Depression Screening 07/06/2021 07/06/2020 Transferrin Saturation Hereditary Hemochromatosis (HFE) Annual,All Ages 01/22/2024 01/22/2023 B-12 07/23/2024 07/23/2023, 06/02, 01/18/2021, Additional history exists CKD PHOS USE SMARTSET 63779 07/23/202407/03, 06/26/2022, 01/18/2022, Additional history exists COVID-19 Vaccine (2023- 5 season) 2024 11/07/2021, 03/17/2021, 02/10/2021 Influenza Vaccine (FLU shot) (#1) 2024 01/01/2018 (Refused) GFR 12/23/2024 06/22/2024, 03/02, 01/22/2023, Additional history exists HbA1c 03/31/2025 09/30/2024, 06/02, 07/23/2023, Additional history exists Albumin/Creatinine Ratio 06/22/2025 024, 07/23/2023, 06/26/2022, Additional history exists CKD HGB USE SMARTSET 26235 06/22/202506/22, 06/22/2024, 07/23/2023, Additional history exists Diabetic [...] on patient's age to complete this topic Meningitis B Vaccine (Bexsero/Trumemba) Aged Out No longer eligible based on patient's age to complete this topic documented as of this encounter Medical Devices Not on filedocumented as of this encounter Visit Diagnoses Diagnosis T12 compression fracture, initial encounter (HCC)- Primary Chronic kidney disease, stage 3a (HCC) Loss of weight Type 2 diabetes mellitus with stage 3a chronic kidney disease, without long-term current use of insulin (HCC) documented in this encounter Administered Medications Inactive Administered Medications - up to 3 most recent administrations Medication Order MAR Action Action Date Dose Rate Site keTORolac (Toradol) 30 MG/ML inj 30 mg 30 mg, Intramuscular, ONCE, On Sat01/15/25 at 1100, For 1 doseIndications:T12 compression fracture, initial encounter ([facility]) Given 01/15/2025 10:41 AM EST 30 mg Dorsogluteal Right documented in this encounter Advance Directives * Full Code (Latest Code Status on File) Date Activated Date Inactivated Comments 10/11/2011 11:48 AM 10/12/2011 3:41 PM This orde r reflects the patients wishes and were consensually agreed upon. Care Teams Drop Wirer Relationship Specialty Start Date End Date Jere Miramontes MD [address] [place] [address] [place] [address] PCP - General Family Medicine 06/22/24 documented as of this encounter
--- OUTSIDE RECORDS SUMMARY | 2025-01-16 11:02 | External Medical Summary ---
Author Name Unknown Address Unknown Organization [id number]:[facility] [place] [address] [facility] [id number] Laboratory Report Ordering Provider Test Date Status MIKE HILLDOMINICK 09/30/2024 08:45:23 Brenda l Observation Date Value Abnormality Reference (Units ) Status HbA1C 09/30/2024 08:45:23 6.5 Above high normal 4. 0-5.6 (%) Final The use of HbA1c to monitor glycemic status is based on normal hemoglobin and HbA composition. This test should not be used in patients with abnormal hemoglobin that affects the half life of the red blood cell or the in vivo glycation rates. Glucose, estimated average 09/30/2024 08:45:23 140 Above high normal <126 (mg/dL) Eric al Performing Location [facility] [place] [address] [facility] [place] [facility] [address]
--- OUTSIDE RECORDS SUMMARY | 2025-01-16 11:02 | External Medical Summary | Summary of Care ---
Author Name Unknown Organization [facility] Address [address] [facility] [place] [address] Phone [phone] Care Team Providers Care Seafood Technology Specialist Name Role Phone Jere Miramontes MD Primary Care Provide r Encounter Details Date Type Department Care Team (Late st Contact Info) Description 01/08/2025 Result Scan Unspecified Department <No scans attached> Allergies Active Allergy Reactions Criticality Noted Date Comments No Known Drug Allergy 03/01/2011 documented as of this encounter (statuses as of 01/11/2025) Medications triamcinolone acetonide (ARISTOCORT) 0.1 % cream Apply topically to affected area 2 times a day. To affected area. 15 g 5 8 Active metFORMIN HCl 1000 MG Oral Tablet (Glucophage)Indic ations:Type 2 diabetes, HbA1C goal < 8% (HCC),Type [...] AT BEDTIME 90 Tablet 1 4 Active documented as of this encounter (statuses as of 01/11/2025) Active Problems Problem Noted Date Diagnosed Date [...] as of this encounter (statuses as of 01/11/2025) Resolved Problems Problem Noted Date Diagnosed Date Resolved Date Diabetes mellitus with stage 3 chronic kidney disease 02/06/2021 04/13/2021 Overview: Per CKD protocol Encounter for examination fo r normal comparison and control in clinical research program 07/11/2018 07/17/2018 Overview (03/20/2021): Diagnosis changed due to Research Module. Go to Snapshot for study details. Altered mental status 01/29/20172017 Overview (02/04/2017): [facility] S/P radiation therapy 05/11/20162019 Bone necrosis 05/12/2013 [...] as of this encounter (statuses as of 01/11/2025) Immunizations Name Administration Dates Next Due COVID-19 [...] on file documented as of this encounter Plan of Treatment Upcoming Encounters Date Type Department Care Team (Late st Contact Info) Description 03/03/2025 12:00 PM EDT Office Visit Family Medicine [address] [place] [address] Jere Miramontes MD [address] [place] [address] [place] [address] Health Maintenance Due Date Last Done Comments [...] Additional history exists CKD PHOS USE SMARTSET 91870 07/23/202407/03, 06/26/2022, 01/18/2022, Additional history exists COVID-19 Vaccine (2023-2 5 season) 2024 11/07/2021, 03/17/2021, 02/10/2021 Influenza Vaccine (FLU shot) (#1) 2024 01/01/2018 (Refused) GFR 12/23/2024 06/22/2024, 03/02, 01/22/2023, Additional history exists HbA1c 03/31/2025 09/30/2024, 06/02, 07/23/2023, Additional history exists Albumin/Creatinine Ratio 06/22/2025 024, 07/23/2023, 06/26/2022, Additional history exists CKD HGB USE SMARTSET 25825 06/22/202506/22, 06/22/2024, 07/23/2023, Additional history exists Diabetic [...] Not on filedocumented as of this encounter Procedures Procedure Name Priority Date/Time Associated Diagnosis Comments RADIOLOGY SCANNED RESULT 01/08/2025 RADIOLOGY SCANNED RESULT 01/08/2025 documented in this encounter Results * RADIOLOGY SCANNED RESULT (01/08/2025) 01/08/2025 us No Physician Data Unknown DIAGNOSTIC RADIOLOGY S ERVICES Final Result * RADIOLOGY SCANNED RESULT (01/08/2025) 01/08/2025 us No Physician Data Unknown DIAGNOSTIC RADIOLOGY S ERVICES Final Result documented in this encounter Advance Directives * Full Code (Latest Code Status on File) Date Activated Date Inactivated Comments 10/11/2011 11:48 AM 10/12/2011 3:41 PM This orde r reflects the patients wishes and were consensually agreed upon. Care Teams Seafood Technology Specialist Relationship Specialty Start Date End Date Jere Miramontes MD [address] [place] [address] [place] [phone] PCP - General Family Medicine 06/22/24 documented as of this encounter
--- OUTSIDE RECORDS SUMMARY | 2025-01-16 11:02 | External Medical Summary | Summary of Care ---
Author Name Unknown Organization [facility] Address [address] [facility] [place] [address] Phone [phone] Care Team Providers Care Tipping Machine Operator Name Role Phone Jere Miramontes MD Primary Care Provide r Reason for Visit * Reason Comments Outpatient Testing Encounter Details Date Type Department Care Team (Late st Contact Info) Description 01/15/2025 10:50 AM EST Laboratory Laboratory [address] [place] [address] [place] [address] Loss of weight; Type 2 diabetes mellitus with stage 3a chronic kidney disease, without long-term current use of insulin ([facility]) Allergies Active Allergy Reactions Criticality Noted Date [...] pain for 5 days 5 Active Calcitonin ([place]) 200 UNIT/ACT Nasal Solution (Fortical) Administer 1 Ellis into one nostril in the morning. alternate nostrils.. 3 mL 11 5 Active Boost High Protein Oral Liquid One can three times daily with meals 600 mL 5 5 Active oxyCODONE HCl 5 MG Oral Tablet (Oxy IR)Indications:T1 2 compression fracture, initial encounter ([facility]) Take 1 Tablet by mouth every 6 hours as needed for Pain, Severe. 25 Tablet 5 Active documented as of this encounter (statuses [...] details. Altered mental status 01/29/20172017 Overview (02/04/2017): [facility] S/P radiation therapy 05/11/20162019 Bone necrosis [...] 12:00 PM EDT Office Visit Family Medicine [address] [place] [phone] Jere Miramontes MD [address] [place] [address] [place] [address] Pending Results Name Type Priority Associated Diagnoses [...] of insulin (HCC) 01/15/2025 10:59 AM EST CBC Lab Routine Loss of weight 01/15/2025 10:59 AM EST DIFFERENTIAL, AUTOMATED Lab Routine Loss of weight 01/15/2025 10:59 AM EST Health Maintenance Due Date Last Done Comments [...] Additional history exists CKD PHOS USE SMARTSET 83517 07/23/202407/03, 06/26/2022, 01/18/2022, Additional history exists COVID-19 Vaccine ( - 2023-2 5 season) 2024 11/07/2021, 03/17/2021, 02/10/2021 Influenza Vaccine (FLU shot) (#1) 2024 01/01/2018 (Refused) GFR 12/23/2024 06/22/2024, 0408/2023, 01/22/2023, Additional history exists HbA1c 03/31/2025 09/30/2024, 06/02, 07/23/2023, Additional history exists Albumin/Creatinine Ratio 06/22/2025 024, 07/23/2023, 06/26/2022, Additional history exists CKD HGB USE SMARTSET 98598 06/22/202506/22, 06/22/2024, 07/23/2023, Additional history exists Diabetic [...] as of this encounter Visit Diagnoses Diagnosis Loss of weight Type 2 diabetes mellitus with stage 3a chronic kidney disease, without long-term current use of insulin (HCC) documented in this encounter Advance Directives * Full Code (Latest Code Status on File) Date Activated Date Inactivated Comments 10/11/2011 11:48 AM 10/12/2011 3:41 PM This orde r reflects the patients wishes and were consensually agreed upon. Care Teams Tipping Machine Operator Relationship Specialty Start Date End Date Jere Miramontes MD [address] [place] [address] [place] [phone] PCP - General Family Medicine 06/22/24 documented as of this encounter
--- OUTSIDE RECORDS SUMMARY | 2025-01-16 11:02 | External Medical Summary ---
Author Name Unknown Address Unknown Organization K01:[facility] [place] [address] [place] [address] Laboratory Report Ordering Provider Test Date Status LAISHA CABRAL SEIFERT 01/15/2025 10:59:06 Final Observation Date Value Abnormality Reference (Units ) Status TSH 01/15/2025 10:59:06 2.42 0.27-4.20 (uIU/mL) Final Performing Location LABORATORY [facility] - [address] [place] [address]
--- OUTSIDE RECORDS SUMMARY | 2025-01-16 11:02 | External Medical Summary | Summary of Care ---
Author Name Unknown Organization [facility] Address [address] [facility] [place] [address] Phone [phone] Care Team Providers Care Boiler Operator Name Role Phone Jere Miramontes MD Primary Care Provide r Reason for Visit * Reason Onset Date Comments TRIAGE 12/15/2024 adult manager follow up from dizziness Encounter Details Date Type Department Care Team (Late st Contact Info) Description 12/15/2024 Telephone Family Medicine [address] [phone] Jere Miramontes MD [address] [place] [address] [place] [address] TRIAGE (adult manager follow up from dizziness) Allergies Active Allergy Reactions Criticality Noted Date Comments No Known Drug Allergy 03/01/2011 documented as of this encounter (statuses as of 12/15/2024) Medications triamcinolone acetonide (ARISTOCORT) 0.1 % cream [...] as of this encounter (statuses as of 12/15/2024) Active Problems Problem Noted Date Diagnosed Date [...] as of this encounter (statuses as of 12/15/2024) Resolved Problems Problem Noted Date Diagnosed Date Resolved Date Diabetes mellitus with stage 3 chronic kidney disease 02/06/2021 04/13/2021 Overview: Per CKD protocol Encounter for examination fo r normal comparison and control in clinical research program 07/11/2018 07/17/2018 Overview (03/20/2021): Diagnosis changed due to Research Module. Go to Snapshot for study details. Altered mental status 01/29/20172017 Overview (02/04/2017): [facility] S/P radiation therapy 05/11/20162019 Bone necrosis [...] as of this encounter (statuses as of 12/15/2024) Immunizations Name Administration Dates Next Due COVID-19 [...] encounter Miscellaneous Notes * Telephone Encounter - Talya Cornejo CMA - 12/15/2024 3:22 PM EST I called Jessica to follow up on the adult manager encounter. She has had the dizziness and lightheadness for a while. She just heard that there is a medication she might be able to get to help with it and wants to discuss this with Dr. Burgess at her visit in March. She mentioned that on the phone while c hecking on her appointment time and that triggered the adult manager. She states she is fine. documented in this encounter Plan of Treatment Upcoming Encounters Date Type Department Care Team (Late st Contact Info) Description 03/03/2025 12:00 PM EDT Office Visit Family Medicine [address] [place] [phone] Jere Miramontes MD [address] [place] [address] [place] [address] Health Maintenance Due Date Last Done Comments [...] Additional history exists CKD PHOS USE SMARTSET 97285 07/23/202407/03, 06/26/2022, 01/18/2022, Additional history exists COVID-19 Vaccine (2024-01 5 season) 2024 11/07/2021, 03/17/2021, 02/10/2021 Influenza Vaccine (FLU shot) (#1) 2024 01/01/2018 (Refused) GFR 12/23/2024 06/22/2024, 03/02, 01/22/2023, Additional history exists HbA1c 03/31/2025 09/30/2024, 06/02, 07/23/2023, Additional history exists Albumin/Creatinine Ratio 06/22/2025 024, 07/23/2023, 06/26/2022, Additional history exists CKD HGB USE SMARTSET 93813 06/22/202506/22, 06/22/2024, 07/23/2023, Additional history exists Diabetic [...] Not on filedocumented as of this encounter Advance Directives * Full Code (Latest Code Status on File) Date Activated Date Inactivated Comments 10/11/2011 11:48 AM 10/12/2011 3:41 PM This orde r reflects the patients wishes and were consensually agreed upon. Care Teams Boiler Operator Relationship Specialty Start Date End Date Jere Miramontes MD [address] [place] [address] [place] [phone] PCP - General Family Medicine 06/22/24 documented as of this encounter
--- OUTSIDE RECORDS SUMMARY | 2025-01-16 11:02 | External Medical Summary | Summary of Care ---
Author Name Unknown Organization [facility] Address [address] [facility] [place] [address] Phone [phone] Care Team Providers Care Printing And Stamping Supervisor Name Role Phone Jere Miramontes MD Primary Care Provide r Reason for Visit * Reason Comments Outpatient Testing Encounter Details Date Type Department Care Team (Late st Contact Info) Description 09/30/2024 8:50 AM EDT Laboratory Laboratory [address] [place] [address] [place], Lab [address] [place] [address] Type 2 diabetes, HbA1C goal < 8% ([facility]) Allergies Active Allergy Reactions Criticality Noted Date Comments No Known Drug Allergy 03/01/2011 documented as of this encounter (statuses as of 09/30/2024) Medications Medication Sig Dispensed Refills Start Date [...] as of this encounter (statuses as of 09/30/2024) Active Problems Problem Noted Date Diagnosed Date [...] as of this encounter (statuses as of 09/30/2024) Resolved Problems Problem Noted Date Diagnosed Date Resolved Date Diabetes mellitus with stage 3 chronic kidney disease 02/06/2021 04/13/2021 Overview: Per CKD protocol Encounter for examination fo r normal comparison and control in clinical research program 07/11/2018 07/17/2018 Overview: Diagnosis changed due to Research Module. Go to Snapshot for study details. Altered mental status 01/29/20172017 Overview: [facility] S/P radiation therapy 05/11/20162019 Bone necrosis [...] as of this encounter (statuses as of 09/30/2024) Immunizations Name Administration Dates Next Due COVID-19 [...] 12:00 PM EDT Office Visit Family Medicine [address] [place] [address] Jere Miramontes MD [address] [place] [address] [place] [address] Pending Results Name Type Priority Associated Diagnoses Date /Time HEMOGLOBIN A1C Lab Routine Type 2 diabetes, HbA1C goal < 8% ([facility]) 09/30/2024 8:45 AM EDT Health Maintenance Due Date Last Done Comments [...] Additional history exists CKD PHOS USE SMARTSET 19134 07/23/202407/03, 06/26/2022, 01/18/2022, Additional history exists COVID-19 Vaccine (4 - 2023-2 5 season) 2024 11/07/2021, 03/17/2021, 02/10/2021 Influenza Vaccine (FLU shot) (#1) 2024 01/01/2018 (Refused) GFR 12/23/2024 06/22/2024, 03/02, 01/22/2023, Additional history exists HbA1c 12/23/2024 06/22/2024, 07/03, 01/22/2023, Additional history exists Albumin/Creatinine Ratio 06/22/2025 024, 07/23/2023, 06/26/2022, Additional history exists CKD HGB USE SMARTSET 64538 06/22/202506/22, 06/22/2024, 07/23/2023, Additional history exists Diabetic [...] Type 2 diabetes, HbA1C goal < 8% (HCC) Type II or unspecified type diabetes mellitus without mention of complication, not stated as uncontrolled documented in this encounter Advance Directives * Full Code (Latest Code Status on File) Date Activated Date Inactivated Comments 10/11/2011 11:48 AM 10/12/2011 3:41 PM This orde r reflects the patients wishes and were consensually agreed upon. Care Teams Printing And Stamping Supervisor Relationship Specialty Start Date End Date Jere Miramontes MD [address] [place] [address] [place] [id number] PCP - General Family Medicine 06/22/24 documented as of this encounter
--- OUTSIDE RECORDS SUMMARY | 2025-01-16 11:02 | External Medical Summary ---
Author Name Unknown Address Unknown Organization K01:[facility] [place] [address] [facility] [place] [address] Laboratory Report Ordering Provider Test Date Status LAISHA CABRAL 01/15/2025 10:59:06 Final Observation Date Value Abnormality Reference (Units ) Status SYNC LEUKOCYTES IN BLOOD BY AUTOMATED COUNT 01/15/2025 10:59:06 11.02 Above high normal 4.00-10.80 (K/uL) Final Segs 01/15/2025 10:59:06 72.5 40.0-75.0 (%) Final Lymphs % 01/15/2025 10:59:06 16.4 Below low normal 18.0-42.0 (%) Final Monos 01/15/2025 10:59:06 9.5 1.0-11.0 (%) Final Eosinophils 01/15/2025 10:59:06 0.5 0.0-6.0 (%) Final Basos 01/15/2025 10:59:06 0.7 0.0-2.0 (%) Final Immature Granulocyte, Percent 01/15/2025 10:59:06 0.4 0.0-2.0 (%) Final Absolute Segs 01/15/2025 10:59:06 7.98 Above high normal 1.80-7.70 (K/uL) Final Lymphs, absolute 01/15/2025 10:59:06 1.81 1.00-4.80 (K/ul) Final Monos, Abs 01/15/2025 10:59:06 1.05 0.00-1.10 (K/uL) Final Eos, Abs 01/15/2025 10:59:06 0.06 0.00-0.70 (K/uL) Final Basos, Abs 01/15/2025 10:59:06 0.08 0.00-0.20 (K/uL) Final Immature Granulocytes, Number 01/15/2025 10:59:06 0.04 0.00-0.20 (K/uL) Final Performing Location [facility] [place] [facility] [address] [facility] [address]
--- OUTSIDE RECORDS SUMMARY | 2025-01-16 11:02 | External Medical Summary | Summary of Care ---
Author Name Unknown Organization [facility] Address [address] [facility] [place] [address] Phone [phone] Care Team Providers Care Regulator Assembler Name Role Phone Jere Miramontes MD Primary Care Provide r Reason for Referral * Medication Prior Authorization - Pending Review Specialty Diagnoses / Procedures Referred By Contac t Referred To Contact Diagnoses T12 compression fracture, initial encounter (HCC) Diann Irwin MD [address] [place] [address] [place] [address] Phone: tel: fax: Referral ID Status Reason Start Date Expiration Date V isits Requested Visits Authorized [id number] Pending Review [phone] Reason for Visit * Reason Comments Acute Encounter Details Date Type Department Care Team (Late st Contact Info) Description 01/15/2025 10:20 AM EST Office Visit Family Medicine [address] [place] [address] Diann Irwin MD [address] [place] [address] [place] [address] T12 compression fracture, initial encounter (HCC)*; Chronic kidney disease, stage 3a ([facility]); Loss of weight; Type 2 diabetes mellitus with stage 3a chronic kidney disease, without long-term current use of insulin ([facility]) Allergies Active Allergy Reactions Criticality Noted Date Comments No Known Drug Allergy 03/01/2011 documented as of this encounter (statuses as of 01/15/2025) Medications triamcinolone acetonide (ARISTOCORT) 0.1 % cream Apply topically to affected area 2 times a day. To affected area. 15 g 5 8 Active metFORMIN HCl 1000 MG Oral Tablet (Glucophage)Indic ations:Type 2 diabetes, HbA1C goal < 8% ([facility]),Type 2 diabetes, HbA1C goal < 8% ([facility]) TAKE 1 TABLET TWICE A DAY WITH THE MORNING AND EVENING MEALS 180 Tablet 1 4 Active Jardiance 10 MG Oral Tablet (Empagliflozin)In dications:Type 2 diabetes mellitus with stage 3a chronic kidney disease, without long-term current use of insulin ([facility]),Chronic kidney disease, stage 3a ([facility]) TAKE 1 TABLET IN THE MORNING 90 [...] pain for 5 days 5 Active Calcitonin ([place]) 200 UNIT/ACT Nasal Solution (Fortical) Administer 1 [place] into one nostril in the morning. alternate nostrils.. 3 mL 11 5 Active Boost High Protein Oral Liquid One can three times daily with meals 600 mL 5 5 Active oxyCODONE HCl 5 MG Oral Tablet (Oxy IR)Indications:T1 2 compression fracture, initial encounter ([facility]) Take 1 Tablet by mouth every 6 hours as needed for Pain, Severe. 25 Tablet 5 Active Hospital, Clinic, or Other Facility Administered Medication Ordered Dose Route Frequency Start Date End Date Status keTORolac (Toradol) 30 MG/ML inj 30 mgIndications:T12 compression fracture, initial encounter ([facility]) 30 mg IM ONCE 01/15/2025 01/15/2025 E [...] details. Altered mental status 01/29/20172017 Overview (02/04/2017): [facility] S/P radiation therapy 05/11/20162019 Bone necrosis 05/12/2013 [...] . Fell off a stool. Went to [facility] for xrays. Seen in the ED for [...] IM today Chronic kidney disease, stage 3a ([facility]) Loss of weight Has lost about 50 [...] disease, without long-term current use of insulin ([facility]) - HEMOGLOBIN A1C; Future Wrap-Up Follow Up: [...] and fell on the floor. Went to [facility] they where unable to egt xrays, went to [facility] from there and they found a fractured [...] 12:00 PM EDT Office Visit Family Medicine [address] [place] [address] Jere Miramontes MD [address] [place] [address] [place] [address] Pending Results Name Type [...] Additional history exists CKD PHOS USE SMARTSET 76329 07/23/202407/03, 06/26/2022, 01/18/2022, Additional history exists COVID-19 Vaccine (2023- 5 season) 2024 11/07/2021, 03/17/2021, 02/10/2021 Influenza Vaccine (FLU shot) (#1) 2024 01/01/2018 (Refused) GFR 12/23/2024 06/22/2024, 03/02, 01/22/2023, Additional history exists HbA1c 03/31/2025 09/30/2024, 06/02, 07/23/2023, Additional history exists Albumin/Creatinine Ratio 06/22/2025 024, 07/23/2023, 06/26/2022, Additional history exists CKD HGB USE SMARTSET 32393 06/22/202506/22, 06/22/2024, 07/23/2023, Additional history exists Diabetic [...] For 1 doseIndications:T12 compression fracture, initial encounter ([facility]) Given 01/15/2025 10:41 AM EST 30 mg Dorsogluteal Right documented in this encounter Advance Directives * Full Code (Latest Code Status on File) Date Activated Date Inactivated Comments 10/11/2011 11:48 AM 10/12/2011 3:41 PM This orde r reflects the patients wishes and were consensually agreed upon. Care Teams Regulator Assembler Relationship Specialty Start Date End Date Jere Miramontes MD [address] [place] [address] [place] [address] PCP - General Family Medicine 06/22/24 documented as of this encounter
--- OUTSIDE RECORDS SUMMARY | 2025-01-16 11:02 | External Medical Summary | Summary of Care ---
Author Name Unknown Organization [facility] Address [address] [facility] [place] [address] Phone [phone] Care Team Providers Care Marzipan Molder Name Role Phone Jere Miramontes MD Primary Care Provide r Reason for Referral * Medication Prior Authorization - Pending Review Specialty Diagnoses / Procedures Referred By Contac t Referred To Contact Diagnoses T12 compression fracture, initial encounter (HCC) Diann Irwin MD [address] [place] [address] [place] [address] Phone: tel: fax: Referral ID Status Reason Start Date Expiration Date V isits Requested Visits Authorized [id number] Pending Review 999 999 Reason for Visit * Reason Comments Acute Encounter Details Date Type Department Care Team (Late st Contact Info) Description 01/15/2025 10:20 AM EST Office Visit Family Medicine [address] [place] [address] Diann Irwin MD [address] [place] [address] [place] [address] T12 compression fracture, initial encounter (HCC)*; Chronic kidney disease, stage 3a ([facility]); Loss of weight; Type 2 diabetes mellitus with stage 3a chronic kidney disease, without long-term current use of insulin ([facility]) Allergies Active Allergy Reactions Criticality Noted Date [...] < 8% ([facility]),Type 2 diabetes, HbA1C goal < 8% ([facility]) TAKE 1 TABLET TWICE A DAY WITH THE MORNING AND EVENING MEALS 180 Tablet 1 4 Active Jardiance 10 MG Oral Tablet (Empagliflozin)In dications:Type 2 diabetes mellitus with stage 3a chronic kidney disease, without long-term current use of insulin ([facility]),Chronic kidney disease, stage 3a ([facility]) TAKE 1 TABLET IN THE MORNING 90 [...] pain for 5 days 5 Active Calcitonin ([place]) 200 UNIT/ACT Nasal Solution (Fortical) Administer 1 [place] into one nostril in the morning. alternate nostrils.. 3 mL 11 5 Active Boost High Protein Oral Liquid One can three times daily with meals 600 mL 5 5 Active oxyCODONE HCl 5 MG Oral Tablet (Oxy IR)Indications:T1 2 compression fracture, initial encounter ([facility]) Take 1 Tablet by mouth every 6 hours as needed for Pain, Severe. 25 Tablet 5 Active Hospital, Clinic, or Other Facility Administered Medication Ordered Dose Route Frequency Start Date End Date Status keTORolac (Toradol) 30 MG/ML inj 30 mgIndications:T12 compression fracture, initial encounter ([facility]) 30 mg IM ONCE 01/15/2025 01/15/2025 E [...] details. Altered mental status 01/29/20172017 Overview (02/04/2017): [facility] S/P radiation therapy 05/11/20162019 Bone [...] . Fell off a stool. Went to [facility] for xrays. Seen in the ED for [...] today Chronic kidney disease, stage 3a ([facility]) Loss of weight Has lost about 50 [...] without long-term current use of insulin ([facility]) - HEMOGLOBIN A1C; Future Wrap-Up Follow Up: [...] and fell on the floor. Went to [facility] they where unable to egt xrays, went to [facility] from there and they found a fractured [...] 12:00 PM EDT Office Visit Family Medicine [address] [place] [address] Jere Miramontes MD [address] [place] [address] [place] [address] Pending Results Name Type [...] Additional history exists CKD PHOS USE SMARTSET 34308 07/23/202407/03, 06/26/2022, 01/18/2022, Additional history exists COVID-19 Vaccine (2023- 5 season) 2024 11/07/2021, 03/17/2021, 02/10/2021 Influenza Vaccine (FLU shot) (#1) 2024 01/01/2018 (Refused) GFR 12/23/2024 06/22/2024, 03/02, 01/22/2023, Additional history exists HbA1c 03/31/2025 09/30/2024, 06/02, 07/23/2023, Additional history exists Albumin/Creatinine Ratio 06/22/2025 024, 07/23/2023, 06/26/2022, Additional history exists CKD HGB USE SMARTSET 92066 06/22/202506/22, 06/22/2024, 07/23/2023, Additional history exists Diabetic [...] 1 doseIndications:T12 compression fracture, initial encounter ([facility]) Given 01/15/2025 10:41 AM EST 30 mg Dorsogluteal Right documented in this encounter Advance Directives * Full Code (Latest Code Status on File) Date Activated Date Inactivated Comments 10/11/2011 11:48 AM 10/12/2011 3:41 PM This orde r reflects the patients wishes and were consensually agreed upon. Care Teams Marzipan Molder Relationship Specialty Start Date End Date Jere Miramontes MD [address] [place] [address] [place] [id number] PCP - General Family Medicine 06/22/24 documented as of this encounter
--- OUTSIDE RECORDS SUMMARY | 2025-01-16 11:02 | External Medical Summary ---
Author Name Unknown Address Unknown Organization [id number]:[facility] [place] [facility] [address] [facility] [address] [place] [address] Laboratory Report Ordering Provider Test Date Status LAISHA CABRAL 01/15/2025 10:59:06 Final Observation Date Value Abnormality Reference (Units ) Status WBC, Total 01/15/2025 10:59:06 11.02 Above high normal 4.00-10.80 (K/uL) Final RBC 01/15/2025 10:59:06 5.08 3.85-5.15 (M/uL) Final Hemoglobin 01/15/2025 10:59:06 14.6 12.0-15.3 (g/dL) Final HCT 01/15/2025 10:59:06 46.5 Above high normal 36.0-45.2 (%) Final MCV 01/15/2025 10:59:06 91.5 81.5-97.5 (fL) Final MCH 01/15/2025 10:59:06 28.7 27.0-34.0 (pg) Final MCHC 01/15/2025 10:59:06 31.4 32.0-36.0 (g/dL) Final RDW 01/15/2025 10:59:06 15.3 11.5-15.5 (%) Final Platelets 01/15/2025 10:59:06 490 Above high normal 140-400 (K/uL) Final MPV 01/15/2025 10:59:06 9.1 6.6-11.1 (fL) Final Nucleated erythrocytes/100 leukocytes [Ratio] in Blood by Automated count 01/15/2025 10:59:06 0 <=0 (/100 WBCs) Final Performing Location [facility] [place] - [address] [place] [address]
--- OUTSIDE RECORDS SUMMARY | 2025-01-16 11:02 | External Medical Summary | Summary of Care ---
Author Name Unknown Organization [facility] Address [address] [facility] [place] [address] Phone [phone] Care Team Providers Care Coin Counter And Wrapper Name Role Phone Jere Miramontes MD Primary Care Provide r Encounter Details Date Type Department Care Team (Late st Contact Info) Description 01/12/2025 Orders Only Family Medicine [address] [phone] Jere Miramontes MD [address] [place] [address] [place] [address] Allergies Active Allergy Reactions Criticality Noted Date Comments No Known Drug Allergy 03/01/2011 documented as of this encounter (statuses as of 01/12/2025) Medications triamcinolone acetonide (ARISTOCORT) 0.1 % cream Apply topically to affected area 2 times a day. To affected area. 15 g 5 8 Active metFORMIN HCl 1000 MG Oral Tablet (Glucophage)Indic ations:Type 2 diabetes, HbA1C goal < 8% (HCC),Type 2 diabetes, HbA1C goal < 8% ([facility]) TAKE 1 TABLET TWICE A [...] as of this encounter (statuses as of 01/12/2025) Active Problems Problem Noted Date Diagnosed Date [...] as of this encounter (statuses as of 01/12/2025) Resolved Problems Problem Noted Date Diagnosed Date Resolved Date Diabetes mellitus with stage 3 chronic kidney disease 02/06/2021 04/13/2021 Overview: Per CKD protocol Encounter for examination fo r normal comparison and control in clinical research program 07/11/2018 07/17/2018 Overview (03/20/2021): Diagnosis changed due to Research Module. Go to Snapshot for study details. 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 [...] as of this encounter (statuses as of 01/12/2025) Immunizations Name Administration Dates Next Due COVID-19 [...] 12:00 PM EDT Office Visit Family Medicine [address] [place] [address] Jere Miramontes MD [address] [place] [address] [place] [address] Health Maintenance Due Date [...] Additional history exists CKD PHOS USE SMARTSET 18404 07/23/202407/03, 06/26/2022, 01/18/2022, Additional history exists COVID-19 Vaccine (2023-2 5 season) 2024 11/07/2021, 03/17/2021, 02/10/2021 Influenza Vaccine (FLU shot) (#1) 2024 01/01/2018 (Refused) GFR 12/23/2024 06/22/2024, 03/02, 01/22/2023, Additional history exists HbA1c 03/31/2025 09/30/2024, 06/02, 07/23/2023, Additional history exists Albumin/Creatinine Ratio 06/22/2025 024, 07/23/2023, 06/26/2022, Additional history exists CKD HGB USE SMARTSET 61519 06/22/202506/22, 06/22/2024, 07/23/2023, Additional history exists Diabetic [...] Procedure Name Priority Date/Time Associated Diagnosis Comments CT ABD/PELVIS WO IV CONTRAST - W ORAL CONTRAST Routine 01/11/2025 documented in this encounter Results * CT ABD/PELVIS WO IV CONTRAST - W ORAL CONTRAST (01/11/2025) Anatomical Region Laterality Modality Body, Abdomen, Pelvis Other 01/11/2025 us History Per Patient RAD CT Final Result documented in this encounter Advance Directives * Full Code (Latest Code Status on File) Date Activated Date Inactivated Comments 10/11/2011 11:48 AM 10/12/2011 3:41 PM This orde r reflects the patients wishes and were consensually agreed upon. Care Teams Coin Counter And Wrapper Relationship Specialty Start Date End Date Jere Miramontes MD [address] [place] [address] [place] [address] PCP - General Family Medicine 06/22/24 documented as of this encounter
--- OUTSIDE RECORDS SUMMARY | 2025-01-16 11:02 | External Medical Summary ---
Author Name Unknown Address Unknown Organization K01:[facility] [place] - [facility] [address] [facility] [address] Laboratory Report Ordering Provider Test Date Status LAISHA CABRAL 01/15/2025 10:59:06 Final Observation Date Value Abnormality Reference (Units ) Status HbA1C 01/15/2025 10:59:06 7.2 Above high normal 4. 0-5.6 (%) Final The use of HbA1c to monitor glycemic status is based on normal hemoglobin and HbA composition. This test should not be used in patients with abnormal hemoglobin that affects the half life of the red blood cell or the in vivo glycation rates. Glucose, estimated average 01/15/2025 10:59:06 160 Above high normal <126 (mg/dL) Eric rodrigez Performing Location [facility] [place] [facility] [address] [facility] [address]
--- OUTSIDE RECORDS SUMMARY | 2025-01-16 11:03 | External Medical Summary | Summary of Care ---
Author Name Unknown Organization [facility] Address [address] [facility] [place] [address] Phone [phone] Care Team Providers Care Patient Registration Representative Name Role Phone Jere Miramontes MD Primary Care Provide r Reason for Visit * Reason Comments eRx-Medication Refill Encounter Details Date Type Department Care Team (Late st Contact Info) Description 08/17/2024 Refill Family Medicine [address] [place] [address] Jere Miramontes MD [address] [place] [address] [place] [address] Primary hypertension Allergies Active Allergy Reactions Criticality Noted Date Comments No Known Drug Allergy 03/01/2011 documented as of this encounter (statuses as of 08/18/2024) Medications Medication Sig Dispensed Refills Start Date End Date Status triamcinolone acetonide (ARISTOCORT) 0.1 % cream Apply topically to affected area 2 times a day. To affected area. 15 g 5 07/01/2018 Active metFORMIN HCl 1000 MG Oral Tablet (Glucophage)Indica tions:Type 2 diabetes, HbA1C goal < 8% (HCC),Type 2 diabetes, HbA1C goal < 8% (HCC) TAKE 1 TABLET TWICE A DAY WITH THE MORNING AND EVENING MEALS 180 Tablet 1 08/18/2024 Active Jardiance 10 MG Oral Tablet (Empagliflozin)Ind ications:Type 2 diabetes mellitus with stage 3a chronic kidney disease, without long-term current use of insulin (HCC),Chronic kidney disease, stage 3a (HCC) TAKE 1 TABLET IN THE MORNING 90 Tablet 1 08/18/2024 Active Irbesartan 150 MG Oral Tablet (Avapro)Indication s:Primary hypertension TAKE 1 TABLET BEFORE BEDTIME 90 Tablet 2 08/18/2024 Active Simvastatin 20 MG Oral Tablet (Zocor)Indications :Dyslipidemia, goal LDL below 100,Hyperlipidemia with target LDL less than 100 TAKE 1 TABLET AT BEDTIME 90 Tablet 1 08/18/2024 Active Irbesartan 150 MG Oral Tablet (Avapro)Indication s:Primary hypertension TAKE 1 TABLET BEFORE BEDTIME 90 Tablet 3 04/15/2023 Discontinued documented as of this encounter (statuses as of 08/18/2024) Active Problems Problem Noted Date Diagnosed Date [...] as of this encounter (statuses as of 08/18/2024) Resolved Problems Problem Noted Date Diagnosed Date Resolved Date Diabetes mellitus with stage 3 chronic kidney disease 02/06/2021 04/13/2021 Overview: Per CKD protocol Encounter for examination fo r normal comparison and control in clinical research program 07/11/2018 07/17/2018 Overview: Diagnosis changed due to Research Module. Go to Snapshot for study details. Altered mental status 01/29/20172017 Overview: [facility] S/P radiation therapy 05/11/20162019 Bone [...] as of this encounter (statuses as of 08/18/2024) Immunizations Name Administration Dates Next Due COVID-19 [...] encounter Miscellaneous Notes * Telephone Encounter - Devin Pierce [facility] - 08/18/2024 10:31 AM EDT Signed Prescriptions: Disp Refills Irbesartan 150 MG Oral Tablet (Avapro) 90 Tab*2 Sig: TAKE 1 TABLET BEFORE BEDTIMEAuthorizing Provider: Josee MIRAMONTES User: DEVIN PIERCE- documented in this encounter Plan of Treatment Upcoming Encounters Date Type Department Care Team (Late st Contact Info) Description 03/03/2025 12:00 PM EDT Office Visit Family Medicine [address] [address] Jere Miramontes MD [address] [place] [address] [place], [place] [phone] Health Maintenance Due Date Last Done Comments [...] Additional history exists CKD PHOS USE SMARTSET 03356 07/23/202407/03, 06/26/2022, 01/18/2022, Additional history exists COVID-19 Vaccine (2024-01 5 season) 2024 11/07/2021, 03/17/2021, 02/10/2021 Influenza Vaccine (FLU shot) (#1) 2024 01/01/2018 (Refused) GFR 12/23/2024 06/22/2024, 03/02, 01/22/2023, Additional history exists HbA1c 12/23/2024 06/22/2024, 07/03, 01/22/2023, Additional history exists Albumin/Creatinine Ratio 06/22/2025 024, 07/23/2023, 06/26/2022, Additional history exists CKD HGB USE SMARTSET 99566 06/22/202506/22, 06/22/2024, 07/23/2023, Additional history exists Diabetic [...] as of this encounter Visit Diagnoses Diagnosis Primary hypertension Unspecified essential hypertension documented in this encounter Advance Directives * Full Code (Latest Code Status on File) Date Activated Date Inactivated Comments 10/11/2011 11:48 AM 10/12/2011 3:41 PM This orde r reflects the patients wishes and were consensually agreed upon. Care Teams Patient Registration Representative Relationship Specialty Start Date End Date Jere Miramontes MD [address] [place] [address] [place] [phone] PCP - General Family Medicine 06/22/24 documented as of this encounter
--- OUTSIDE RECORDS SUMMARY | 2025-01-16 11:03 | External Medical Summary | Summary of Care ---
Author Name Unknown Organization [facility] Address [address] [facility] [place] [address] Phone [phone] Care Team Providers Care Steam Pan Sponger Name Role Phone Jere Miramontes MD Primary Care Provide r Reason for Visit * Reason Comments eRx-Medication Refill Encounter Details Date Type Department Care Team (Late st Contact Info) Description 09/20/2024 Refill Family Medicine [address] [address] Jere Miramontes MD [address] [place] [address] [place] [address] Type 2 diabetes, HbA1C goal < [...] details. 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 Thank you, Gissell Stevenson Crime Laboratory Analyst [facility] 09/29/2024,3:40 PM * Telephone Encounter - Shlomo Tipton [facility] - 09/22/2024 2:21 AM EDTRefused Prescriptions: Disp Refills glipiZIDE 10 MG Oral Tablet (Glucotrol) 90 Tab*1 Sig: TAKE 1 TABLET EVERY MORNINGRefused By: SHLOMO TIPTON for Refusal: Course of treatment completeReason for Refusal Comment: pt stopped 06/24/24 * Telephone Encounter - Shlomo Tipton [facility] - 09/22/2024 2:18 AM EDT Glipizide was stopped 06/24/24 with pt having A1c tested 6.4%. hold for 3 months and to be retested at that time Shlomo Tipton [facility] Clinical Pharmacist Telepharmacy [phone] 09/22/2024 2:20 AM documented in this encounter Plan of Treatment Upcoming Encounters Date Type Department Care Team (Late st Contact Info) Description 03/03/2025 12:00 PM EDT Office Visit Family Medicine [address] [place] [address] Jere Miramontes MD [address] [place] [address] [place] [address] Health Maintenance Due Date [...] Additional history exists CKD PHOS USE SMARTSET 03039 07/23/202407/03, 06/26/2022, 01/18/2022, Additional history exists COVID-19 Vaccine (2023- 5 season) 2024 11/07/2021, 03/17/2021, 02/10/2021 Influenza Vaccine (FLU shot) (#1) 2024 01/01/2018 (Refused) GFR 12/23/2024 06/22/2024, 03/02, 01/22/2023, Additional history exists HbA1c 12/23/2024 06/22/2024, 07/03, 01/22/2023, Additional history exists Albumin/Creatinine Ratio 06/22/2025 024, 07/23/2023, 06/26/2022, Additional history exists CKD HGB USE SMARTSET 91402 06/22/202506/22, 06/22/2024, 07/23/2023, Additional history exists Diabetic [...] and were consensually agreed upon. Care Teams Steam Pan Sponger Relationship Specialty Start Date End Date Jere Miramontes MD [address] [place] [address] [place] [phone] PCP - General Family Medicine 06/22/24 documented as of this encounter
--- OUTSIDE RECORDS SUMMARY | 2025-01-16 11:03 | External Medical Summary | Summary of Care ---
Author Name Unknown Organization [facility] Address [address] [facility] [place] [address] Phone [phone] Care Team Providers Care Senior Planning Manager Name Role Phone Jere Miramontes MD Primary Care Provide r Reason for Visit * Reason Comments eRx-Medication Refill Encounter Details Date Type Department Care Team (Late st Contact Info) Description 09/20/2024 Refill Family Medicine [address] [phone] Jere Miramontes MD [address] [place] [address] [place] [address] Type 2 diabetes, HbA1C goal < 8% (HCC); Type 2 diabetes, HbA1C goal < 8% Allergies Active Allergy Reactions Criticality Noted Date Comments No Known Drug Allergy 03/01/2011 documented as of this encounter (statuses as of 09/22/2024) Medications Medication Sig Dispensed Refills Start Date [...] as of this encounter (statuses as of 09/22/2024) Active Problems Problem Noted Date Diagnosed Date [...] as of this encounter (statuses as of 09/22/2024) Resolved Problems Problem Noted Date Diagnosed Date Resolved Date Diabetes mellitus with stage 3 chronic kidney disease 02/06/2021 04/13/2021 Overview: Per CKD protocol Encounter for examination fo r normal comparison and control in clinical research program 07/11/2018 07/17/2018 Overview: Diagnosis changed due to Research Module. Go to Snapshot for study details. Altered mental status 01/29/20172017 Overview: [facility] S/P radiation therapy 05/11/20162019 Bone necrosis [...] as of this encounter (statuses as of 09/22/2024) Immunizations Name Administration Dates Next Due COVID-19 [...] encounter Miscellaneous Notes * Telephone Encounter - Shlomo Tipton [facility] - 09/22/2024 2:21 AM EDTRefused Prescriptions: Disp Refills glipiZIDE 10 MG Oral Tablet (Glucotrol) 90 Tab*1 Sig: TAKE 1 TABLET EVERY MORNINGRefused By: SHLOMO TIPTON for Refusal: Course of treatment completeReason for Refusal Comment: pt stopped 06/24/24 * Telephone Encounter - Shlomo Tipton [facility] - 09/22/2024 2:18 AM EDT Glipizide was stopped 06/24/24 with pt having A1c tested 6.4%. hold for 3 months and to be retested at that time Shlomo Tipton [facility] Clinical Pharmacist Telepharmacy [phone] 09/22/2024 2:20 AM documented in this encounter Plan of Treatment Upcoming Encounters Date Type Department Care Team (Late st Contact Info) Description 03/03/2025 12:00 PM EDT [facility] [address] [place] [address] [place] [address] Jere Miramontes MD [address] [place] [address] [place] [address] Health Maintenance Due Date [...] Additional history exists CKD PHOS USE SMARTSET 13418 07/23/202407/03, 06/26/2022, 01/18/2022, Additional history exists COVID-19 Vaccine (2023- 5 season) 2024 11/07/2021, 03/17/2021, 02/10/2021 Influenza Vaccine (FLU shot) (#1) 2024 01/01/2018 (Refused) GFR 12/23/2024 06/22/2024, 0408/2023, 01/22/2023, Additional history exists HbA1c 12/23/2024 06/22/2024, 07/03, 01/22/2023, Additional history exists Albumin/Creatinine Ratio 06/22/2025 024, 07/23/2023, 06/26/2022, Additional history exists CKD HGB USE SMARTSET 96290 06/22/202506/22, 06/22/2024, 07/23/2023, Additional history exists Diabetic [...] and were consensually agreed upon. Care Teams Senior Planning Manager Relationship Specialty Start Date End Date Jere Miramontes MD [address] [place] [address] [place] [phone] PCP - General Family Medicine 06/22/24 documented as of this encounter
--- OUTSIDE RECORDS SUMMARY | 2025-01-16 11:03 | External Medical Summary | Summary of Care ---
Author Name Unknown Organization [facility] Address [address] [facility] [facility] [place] [address] Phone [phone] Care Team Providers [facility] Worker Name Role Phone Jere Miramontes MD Primary Care Provide r Reason for Visit * Reason Comments eRx-Medication Refill Encounter Details Date Type Department Care Team (Late st Contact Info) Description 08/17/2024 Refill Family Medicine [address] [phone] Jere Miramontes MD [address] [place], [place] [address] [address] Type 2 diabetes, HbA1C goal < 8% ([facility]); Type 2 diabetes, HbA1C goal < 8%; Type 2 diabetes mellitus with stage 3a chronic kidney disease, without long-term current use of insulin ([facility]); Chronic kidney disease, stage 3a ([facility]); Dyslipidemia, goal LDL below 100; Hyperlipidemia with target LDL less than 100 Allergies Active Allergy Reactions Criticality Noted Date Comments No Known Drug Allergy 03/01/2011 documented as of this encounter (statuses as of 08/18/2024) Medications Medication Sig Dispensed Refills Start Date End Date Status triamcinolone acetonide (ARISTOCORT) 0.1 % cream Apply topically to affected area 2 times a day. To affected area. 15 g 5 07/01/2018 Active Irbesartan 150 MG Oral Tablet (Avapro)Indication s:Primary hypertension TAKE 1 TABLET BEFORE BEDTIME 90 Tablet 3 04/15/2023 Active metFORMIN HCl 1000 MG Oral Tablet [...] THE MORNING 90 Tablet 1 08/18/2024 Active Simvastatin 20 MG Oral Tablet (Zocor)Indications :Dyslipidemia, goal LDL below 100,Hyperlipidemia with target LDL less than 100 TAKE 1 TABLET AT BEDTIME 90 Tablet 1 08/18/2024 Active Simvastatin 20 MG Oral Tablet (Zocor)Indications :Dyslipidemia, goal LDL below 100,Hyperlipidemia with target LDL less than 100 TAKE 1 TABLET AT BEDTIME 90 Tablet 1 03/17/2024 4 Discontinued Empagliflozin 10 MG Oral Tablet (Jardiance)Indicat ions:Type 2 diabetes mellitus with stage 3a chronic kidney disease, without long-term current use of insulin (HCC),Chronic kidney disease, stage 3a (HCC) Take 1 Tablet by mouth in the morning. In the morning.. 90 Tablet 1 03/17/2024 4 Discontinued metFORMIN HCl 1000 MG Oral Tablet (Glucophage)Indica tions:Type 2 diabetes, HbA1C goal < 8% (HCC),Type 2 diabetes, HbA1C goal < 8% (HCC) TAKE 1 TABLET BY MOUTH TWICE DAILY WITH THE MORNING AND EVENING MEALS 180 Tablet 1 03/17/2024 4 Discontinued documented as of this encounter (statuses [...] study details. Altered mental status 01/29/20172017 Overview: [facility] S/P radiation therapy 05/11/20162019 Bone [...] encounter Miscellaneous Notes * Telephone Encounter - Karo Munoz [facility] - 08/18/2024 10:00 AM EDTSigned Prescriptions: Disp Refills metFORMIN HCl 1000 MG Oral Tablet (Glucoph*180 Ta*1 Sig: TAKE 1 TABLET TWICE A DAY WITH THE MORNING AND EVENING MEALSAuthorizing Provider: Josee MIRAMONTES User: KARO MUNOZ Jardiance 10 MG Oral Tablet (Empagliflozin)90 Tab*1 Sig: TAKE 1 TABLET INTHE MORNINGAuthorizing Provider: Josee MIRAMONTES User: LILIAN MUNOZ Simvastatin 20 MG Oral Tablet (Zocor) 90 Tab*1 Sig: TAKE 1 TABLET AT BEDTIMEAuthorizing Provider: Josee MIRAMONTES User: MIRANDA MUNOZefused Prescriptions: Disp Refills glipiZIDE 10 MG Oral Tablet (Glucotrol) 90 Tab*1 Sig: TAKE 1 TABLET EVERY MORNINGRefused By: Moy MNUOZfor Refusal: Course of treatment complete documented in this encounter Plan of Treatment Upcoming Encounters Date Type Department Care Team (Late st Contact Info) Description 03/03/2025 12:00 PM EDT Office Visit Family Medicine [address] [place] [phone] Jere Miramontes MD [address] [place] [address] [place] [address] Health Maintenance Due Date [...] Additional history exists CKD PHOS USE SMARTSET 93504 07/23/202407/03, 06/26/2022, 01/18/2022, Additional history exists COVID-19 Vaccine (4 - 2023-2 5 season) 2024 11/07/2021, 03/17/2021, 02/10/2021 Influenza Vaccine (FLU shot) (#1) 2024 01/01/2018 (Refused) GFR 12/23/2024 06/22/2024, 04/08/2023, 01/22/2023, Additional history exists HbA1c 12/23/2024 06/22/2024, 07/03, 01/22/2023, Additional history exists Albumin/Creatinine Ratio 06/22/2025 024, 07/23/2023, 06/26/2022, Additional history exists CKD HGB USE SMARTSET 17041 06/22/202506/22, 06/22/2024, 07/23/2023, Additional history exists Diabetic [...] mention of complication, not stated as uncontrolled Type 2 diabetes mellitus with stage 3a chronic kidney disease, without long-term current use of insulin (HCC) Chronic kidney disease, stage 3a (HCC) Dyslipidemia, goal LDL below 100 Other and unspecified hyperlipidemia Hyperlipidemia with target LDL less than 100 Other and unspecified hyperlipidemia documented in this encounter Advance Directives * Full Code (Latest Code Status on File) Date Activated Date Inactivated Comments 10/11/2011 11:48 AM 10/12/2011 3:41 PM This orde r reflects the patients wishes and were consensually agreed upon. Care Teams [facility] Worker Relationship Specialty Start Date End Date Jere Miramontes MD [address] [place] [address] [place] [address] PCP - General Family Medicine 06/22/24 documented as of this encounter
[2025-01-16 11:59] LABS: Basophils # (auto) 0.07 K/uL (0.00-0.20); Basophils % (auto) 0.5 %; Hemoglobin 14.1 g/dl (12.0-16.0); Immature Granulocytes # (auto) 0.07 K/uL (0.01-0.20); Immature Granulocytes % (auto) 0.5 %; Lymphocytes # (auto) 0.96 K/uL (1.20-3.40); Lymphocytes % (auto) 6.6 %; Mean Corpuscular Hemoglobin 28.3 pg (25.0-34.0); Mean Corpuscular Hgb Conc 32.8 g/dL (32.0-36.0); Mean Corpuscular Volume 86.3 fL (80.0-100.0); Mean Platelet Volume 9.2 fL (9.4-12.4); Monocytes # (auto) 1.11 K/uL (0.11-0.59); Monocytes % (auto) 7.7 %; Neutrophils # (auto) 12.26 K/uL (1.40-6.50); Neutrophils % (auto) 84.7 %; Platelet Count 421 K/uL (130-400); RDW Coefficient of Variation 15.6 % (11.5-14.5); RDW Standard Deviation 48.9 fL (36.4-46.3); Red Blood Count 4.98 M/uL (4.20-5.40); White Blood Count 14.47 K/ul (4.8-10.8)
[2025-01-16] MEDS: SODIUM CHLORIDE 0.9% 1,000 ML IV ONE (12:08)
[2025-01-16] MEDS: FAMOTIDINE 20MG IV PUSH 20 MG/5 ML SYR IV STA (12:08)
[2025-01-16] MEDS: ONDANSETRON INJ 2 MG/ML 2 ML VIAL IV STA (12:08)
[2025-01-16 12:24] LABS: Alanine Aminotransferase 11 U/L (7-52); Albumin Level 3.5 gm/dl (3.4-5.0); Alkaline Phosphatase 71 U/L (34-104); Anion Gap 15 (3-11); Aspartate Aminotransferase 30 U/L (13-39); BUN Creatinine Ratio 15.3 (10-20); Bilirubin,Total 0.4 mg/dl (0.2-1.0); Blood Urea Nitrogen 31 mg/dl (6-23); Calcium 9.3 mg/dl (8.6-10.3); Carbon Dioxide 22 mmol/L (21-32); Chloride 100 mmol/L (98-107); Globulin 3.6 gm/dl (2.5-4.0); Glucose 119 mg/dl (70-99(Fasting)); Phosphorus 5.3 mg/dl (2.5-4.9); Potassium 4.6 mmol/L (3.5-5.1); Sodium 137 mmol/L (136-145); Total Protein 7.1 gm/dl (6.0-8.3)
[2025-01-16 12:34] LABS: Influenza A virus by PCR Negative (Neg); Influenza B virus by PCR Negative (Neg); RSV by PCR Negative (Neg); SARS CoV2 RNA(COVID-19) Ceph NEGATIVE (Negative)
[2025-01-16 12:39] LABS: Troponin I High Sensitivity 2541.6 pg/ml (0-14)
--- NOTE | 2025-01-16 12:58 | XRay Report ---
XR chest 1V portable CLINICAL HISTORY: Nausea and vomiting. COMPARISON STUDY: Chest CT July 31, 2013. Chest radiograph January 29, 2017. FINDINGS: Lung volumes are normal. There is no consolidation to suggest pneumonia. Left lower lung de nsities favor scarring. These are similar to prior exam. There is no pneumothorax or pleural effusion . Cardiomegaly is unchanged. Mediastinal contours are normal. There is no evidence for pulmonary kat a. IMPRESSION: No acute cardiopulmonary findings. No change in appearance of the chest. ACT 112: Negative or not required by law. Electronically signed by: Carlos Lind M.D. 01/16/2025 12:57 PM
--- NOTE | 2025-01-16 13:00 | Emergency Department Note ---
Impression & Plan Acute diverticulitis, Acute renal failure, Elevated troponin, Right bundle branch block ED Provider Note NAME: ANGEL COSBY AGE: 79 SEX: F : 1945 ARRIVES VIA: Ambulance INFORMANT: Patient ED PROVIDER(S): Gideon Mariano MD CHIEF COMPLAINT: Nausea, vomiting, diarrhea, generalized weakness. PLAN: Disposition: Admit MEDICAL DECISION MAKING: The patient is a pleasant 79-year-old woman with a past medical history of diabetes, diverticulitis who presents to the emergency department from home via EMS and then accompanied by family for nausea, vomiting and diarrhea over the past several days. She reports mild cough and congestion. She reports being able to drink some chilo zachariah. She last vomited this morning prior to arrival. Daughter at the bedside reports that the patient did have a flulike illness several weeks ago but refused to go to the hospital and so was never formally diagnosed. She recovered uneventfully from that illness. However she did have a fall at one point where she was seen at [place] emergency department where she had a compression fracture per the daughter. On evaluation the patient is fatigued appearing but no acute distress, afebrile with BP 90s/50s improving with IV fluid hydration and otherwise stable vital signs. She appears clinically dry. Her abdomen is nontender. EKG demonstrates right bundle branch block without overt ST elevation or depression without recent EKGs for comparison. CXR negative for acute cardiopulmonary process per my personal preliminary review/interpretation. WBC 14.4 K with neutrophilia but no left shift. H/H within normal limits. Platelets 420K likely reactive. Chemistry without metabolic acidosis. Creatinine is 2 with BUN of 31 consistent with acute renal failure upon review of [facility] records where patient had normal creatinine yesterday on outpatient labs. LFTs are unremarkable. High-sensitivity troponin is 2500 though patient has not complained of chest pain and EKG did not demonstrate ST elevation. Given the patient's significant elevated troponin CT imaging to rule out PE was ordered in addition to CT of the abdomen pelvis. CT of the chest was negative for PE. Nonspecific mosaic attenuation of the lungs is described. CT of the abdomen pelvis demonstrates extensive inflammatory change and prominent wall thickening and edema along the length of the sigmoid colon with associated numerous diverticuli and evidence of diverticulitis. A small contained perforation is seen about the posterior aspect of the proximal sigmoid described as an ovoid thin rimmed collection containing fluid and a few foci of air measuring 17 x 9 mm. Appendix is unremarkable. IV Zosyn was ordered. Findings were reviewed with the patient and her family at the bedside. They agree with plan for admission for further management. Case was discussed with Lico Jarvis PAC, with Dr. Jerardo cardenas who will evaluate the patient for admission. Case reviewed with general surgery, Dr. Hernandez, who agrees that the patient can be admitted to our facility for further management. He will be available for inpatient team consultation. Admitting team was updated. Further management per admitting team. Triage Nursing notes reviewed and agree them. Prior/external medical records reviewed Vital Signs: reviewed Differential diagnosis: Gastroenteritis, food borne illness, infections, appendicitis, diverticulitis, inflammatory bowel disease, obstruction, GI bleed, biliary pathology, volvulus, as well as other pathologies. ER treatment provided: See below. Diagnostics interpreted by me: ECG: Normal sinus rhythm, 81 bpm, no ectopy, right bundle branch block, no overt ST elevation or depression, QTC 485, QRS 122. Cardiac Monitoring: An order for continuous cardiac monitoring was placed and demonstrated Normal sinus rhythm, 81 bpm, no ectopy. Laboratory studies: See below Imaging studies: See below Consultation(s): Lico Jarvis PAC, with Dr. Jerardo cardenas. Dr. Hernandez, General Surgery. HPI: The patient is a pleasant 79-year-old woman with a past medical history of diabetes, diverticulitis who presents to the emergency department from home via EMS and then accompanied by family for nausea, vomiting and diarrhea over the past several days. She reports mild cough and congestion. She reports being able to drink some chilo zachariah. She last vomited this morning prior to arrival. Daughter at the bedside reports that the patient did have a flulike illness several weeks ago but refused to go to the hospital and so was never formally diagnosed. She recovered uneventfully from that illness. However she did have a fall at one point where she was seen at [place] emergency department where she had a compression fracture per the daughter. ROS: See above HPI for pertinent positives & negatives. A total of 10 systems reviewed and were otherwise negative. VITALS:See Below PHYSICAL EXAMINATION: GENERAL: Awake, alert, fatigued-appearing, in no distress HENT: Normocephalic, atraumatic. Oropharynx with dry mucous membranes and otherwise unremarkable. EYES: Normal conjunctiva. Sclera non-icteric. NECK: Supple. No nuchal rigidity. FROM. No JVD. RESPIRATORY: Clear to auscultation. CARDIAC: Regular rate, normal rhythm. Extremities warm and well perfused. Pulses equal. ABDOMEN: Soft, non-distended. No tenderness to palpation. No rebound or guarding. No masses. MUSCULOSKELETAL: Chest examination reveals no tenderness. The back is symmetrical on inspection without obvious abnormality. There is no CVA tenderness to palpation. No joint edema. LOWER EXTREMITIES: Calves are equal size bilaterally and non-tender. No edema. No discoloration. NEURO: Normal sensorium. No sensory or motor deficits noted. SKIN: No rash or jaundice noted. Gideon Mariano MD Past Med/Surg History Problem List (Updated 01/17/25 @ 02:24 by Gideon Mariano MD) Right bundle branch block (Acute) Elevated troponin (Acute) Acute renal failure (Acute) DM (diabetes mellitus) (Chronic) Acute diverticulitis (Acute) Abdominal pain (Acute) History of cancer Headache Altered mental status Social History Smoking Status: Never smoker Preferred Language: Ukrainian Feels Safe at Home: Yes Allergies Allergies Allergy/AdvReac Type Severity Reaction Status Date / Time No Known Allergies Allergy Unverified 03/23/18 11:11 Home Meds Home Medications Medication Instructions Recorded Confirmed Lisinopril (Zestril) 10 mg PO UD ##0 11/18/17 01/16/25 metformin 1,000 mg tablet 1,000 mg PO BID ##0 11/18/17 01/16/25 simvastatin 20 mg tablet 20 mg PO DAILY ##0 11/18/17 01/16/25 GLIPIZIDE (GLIPIZIDE ER) 2.5 mg PO UD ##0 03/23/18 01/16/25 calcitonin (salmon) 200 1 spray intranasal DIRECTED 01/16/25 01/16/25 unit/actuation nasal spray empagliflozin 10 mg tablet 10 mg PO DAILY 01/16/25 01/16/25 (Jardiance) irbesartan 150 mg tablet 150 mg PO HS 02/15/25 02/15/25 oxycodone-acetaminophen 5 mg-325 1 tab PO Q6H PRN Pain 01/16/25 01/16/25 mg tablet Results & Data (ED) Vital Signs Vital Signs - 24 hr 01/16/25 11:05 01/16/25 12:03 01/16/25 12:13 Temperature 36.6 C Temperature Source Temporal Artery Scan Pulse Rate 84 81 79 Pulse Rate [Apical] Pulse Rate from SpO2 Sensor 81 Respiratory Rate 20 15 Respiratory Effort / Characteristics Respiratory Depth Blood Pressure 94/58 L 109/67 Blood Pressure [Right Arm] Blood Pressure Mean 70 81 Blood Pressure Mean [Right Arm] Pulse Oximetry 95 98 Oxygen Delivery Method Room Air Sepsis Recent Fever Within 48 Hours No Sepsis New/Unexplained Change in Mental Status N/A Sepsis Action Taken by Nursing No Action Required 01/16/25 12:27 01/16/25 13:00 01/16/25 13:59 Temperature Temperature Source Pulse Rate 79 76 Pulse Rate [Apical] 79 Pulse Rate from SpO2 Sensor 76 Respiratory Rate 20 23 18 Respiratory Effort / Characteristics Non-Labored Spontaneous Respiratory Depth Normal Blood Pressure 102/64 115/69 Blood Pressure [Right Arm] 116/84 Blood Pressure Mean 76 84 Blood Pressure Mean [Right Arm] 94 Pulse Oximetry 94 96 Oxygen Delivery Method Room Air Sepsis Recent Fever Within 48 Hours Sepsis New/Unexplained Change in Mental Status Sepsis Action Taken by Nursing 01/16/25 16:00 01/16/25 16:15 Temperature Temperature Source Pulse Rate 75 Pulse Rate [Apical] 76 Pulse Rate from SpO2 Sensor Respiratory Rate 19 Respiratory Effort / Characteristics Non-Labored Spontaneous Respiratory Depth Normal Blood Pressure Blood Pressure [Right Arm] 123/61 Blood Pressure Mean Blood Pressure Mean [Right Arm] 81 Pulse Oximetry 93 Oxygen Delivery Method Room Air Sepsis Recent Fever Within 48 Hours Sepsis New/Unexplained Change in Mental Status Sepsis Action Taken by Nursing Laboratory Data Attestation: I reviewed the patient's lab results. 01/16/25 11:34 01/16/25 11:34 Lab Results 01/16/25 01/16/25 01/16/25 Range/Units 11:18 11:18 11:18 WBC (4.8-10.8) K/ul RBC (4.20-5.40) M/uL Hgb (12.0-16.0) g/dl Hct (37.0-47.0) % MCV (80.0-100.0) fL MCH (25.0-34.0) pg MCHC (32.0-36.0) g/dL RDW Std Deviation (36.4-46.3) fL RDW Coeff of Joan (11.5-14.5) % Plt Count (130-400) K/uL MPV (9.4-12.4) fL Immature Gran % (Auto) % Neut % (Auto) % Lymph % (Auto) % Mclennan % (Auto) % Eos % (Auto) % Baso % (Auto) % Neut # (Auto) (1.40-6.50) K/uL Lymph # (Auto) (1.20-3.40) K/uL Mclennan # (Auto) (0.11-0.59) K/uL Eos # (Auto) (0.00-0.50) K/uL Baso # (Auto) (0.00-0.20) K/uL Immature Gran # (Auto) (0.01-0.20) K/uL Sodium (136-145) mmol/L Potassium (3.5-5.1) mmol/L Chloride (98-107) mmol/L Carbon Dioxide (21-32) mmol/L Anion Gap (3-11) BUN (6-23) mg/dl Creatinine (0.6-1.2) mg/dl Est Cr Clr Drug Dosing eGFR BUN/Creatinine Ratio (10-20) Glucose (70-99(Fasting)) mg/dl Calcium (8.6-10.3) mg/dl Phosphorus (2.5-4.9) mg/dl Magnesium (1.7-2.4) mg/dl Total Bilirubin (0.2-1.0) mg/dl AST (13-39) U/L ALT (7-52) U/L Alkaline Phosphatase (34-104) U/L Troponin I High Sens (0-14) pg/ml Total Protein (6.0-8.3) gm/dl Albumin (3.4-5.0) gm/dl Globulin (2.5-4.0) gm/dl Albumin/Globulin Ratio (0.9-2) Lipase (11-82) U/L Procalcitonin (0-0.5) ng/ml Adenovirus (PCR) Not Detected (NotDetected) B. pertussis DNA (PCR) Not Detected (NotDetected) B.parapertussis DNA PCR Not Detected (NotDetected) C. pneumoniae DNA (PCR) Not Detected (NotDetected) Coronavirus OC43 (PCR) Not Detected (NotDetected) Coronavirus HKU1 (PCR) Not Detected (NotDetected) Coronavirus 229E (PCR) Not Detected (NotDetected) SARS-CoV-2 (PCR) NEGATIVE Not Detected (Negative) Coronavirus NL63 (PCR) Not Detected (NotDetected) Human Metapneumovir PCR Not Detected (NotDetected) Influenza Type A (PCR) Negative Not Detected (Neg) Influenza Type B (PCR) Negative (Neg) M. pneumoniae (PCR) (NotDetected) Parainfluenza 1 (PCR) (NotDetected) Parainfluenza 2 (PCR) (NotDetected) Parainfluenza 3 (PCR) (NotDetected) Parainfluenza 4 (PCR) (NotDetected) RSV (RT-PCR) (Neg) RSV (PCR) (NotDetected) Entero/Rhino (PCR) (NotDetected) 01/16/25 01/16/25 Range/Units 11:18 11:34 WBC 14.47 H (4.8-10.8) K/ul RBC 4.98 (4.20-5.40) M/uL Hgb 14.1 (12.0-16.0) g/dl Hct 43.0 (37.0-47.0) % MCV 86.3 (80.0-100.0) fL MCH 28.3 (25.0-34.0) pg MCHC 32.8 (32.0-36.0) g/dL RDW Std Deviation 48.9 H (36.4-46.3) fL RDW Coeff of Joan 15.6 H (11.5-14.5) % Plt Count 421 H (130-400) K/uL MPV 9.2 L (9.4-12.4) fL Immature Gran % (Auto) 0.5 % Neut % (Auto) 84.7 % Lymph % (Auto) 6.6 % Mclennan % (Auto) 7.7 % Eos % (Auto) 0.0 % Baso % (Auto) 0.5 % Neut # (Auto) 12.26 H (1.40-6.50) K/uL Lymph # (Auto) 0.96 L (1.20-3.40) K/uL Mclennan # (Auto) 1.11 H (0.11-0.59) K/uL Eos # (Auto) 0.00 (0.00-0.50) K/uL Baso # (Auto) 0.07 (0.00-0.20) K/uL Immature Gran # (Auto) 0.07 (0.01-0.20) K/uL Sodium 137 (136-145) mmol/L Potassium 4.6 (3.5-5.1) mmol/L Chloride 100 (98-107) mmol/L Carbon Dioxide 22 (21-32) mmol/L Anion Gap 15 H (3-11) BUN 31 H (6-23) mg/dl Creatinine 2.03 H (0.6-1.2) mg/dl Est Cr Clr Drug Dosing Not Reportable eGFR 24.50 BUN/Creatinine Ratio 15.3 (10-20) Glucose 119 H (70-99(Fasting)) mg/dl Calcium 9.3 (8.6-10.3) mg/dl Phosphorus 5.3 H (2.5-4.9) mg/dl Magnesium 2.0 (1.7-2.4) mg/dl Total Bilirubin 0.4 (0.2-1.0) mg/dl AST 30 (13-39) U/L ALT 11 (7-52) U/L Alkaline Phosphatase 71 (34-104) U/L Troponin I High Sens 2541.6 H* (0-14) pg/ml Total Protein 7.1 (6.0-8.3) gm/dl Albumin 3.5 (3.4-5.0) gm/dl Globulin 3.6 (2.5-4.0) gm/dl Albumin/Globulin Ratio 1.0 (0.9-2) Lipase 6 L (11-82) U/L Procalcitonin 47.50 H (0-0.5) ng/ml Adenovirus (PCR) (NotDetected) B. pertussis DNA (PCR) (NotDetected) B.parapertussis DNA PCR (NotDetected) C. pneumoniae DNA (PCR) (NotDetected) Coronavirus OC43 (PCR) (NotDetected) Coronavirus HKU1 (PCR) (NotDetected) Coronavirus 229E (PCR) (NotDetected) SARS-CoV-2 (PCR) (Negative) Coronavirus NL63 (PCR) (NotDetected) Human Metapneumovir PCR (NotDetected) Influenza Type A (PCR) (Neg) Influenza Type B (PCR) Not Detected (Neg) M. pneumoniae (PCR) Not Detected (NotDetected) Parainfluenza 1 (PCR) Not Detected (NotDetected) Parainfluenza 2 (PCR) Not Detected (NotDetected) Parainfluenza 3 (PCR) Not Detected (NotDetected) Parainfluenza 4 (PCR) Not Detected (NotDetected) RSV (RT-PCR) Negative (Neg) RSV (PCR) Not Detected (NotDetected) Entero/Rhino (PCR) Not Detected (NotDetected) Administered Medications Calcitonin Salida (Calcitonin Salida Na 200 Iu/Ac 3.7 Ml Btl) 1 sprays NA DAILY [facility] Stop: 02/15/25 17:14 Last Admin: 01/16/25 20:53 Dose: 1 sprays Documented By: KAROLYN Sodium Chloride (Nss) 1,000 mls @ 125 mls/hr IV .Q8H [facility] Stop: 01/17/25 19:46 Last Admin: 01/16/25 20:55 Dose: 125 mls/hr Documented By: KAROLYN Piperacillin Sod/Tazobactam Sod (Zosyn) 4.5 gm in 100 mls @ 25 mls/hr IV Q8H [facility]; Protocol Stop: 01/26/25 20:59 Last Infusion: 01/17/25 01:57 Dose: Infused Documented By: Admin: 01/16/25 22:07 Dose: 25 mls/hr Documented By: GERARD Heparin Sodium/Dextrose (Heparin 18614 Unit/500 Ml D5w) 25,000 units in 500 mls @ 14 mls/hr IV .Q24H [facility]; Protocol Stop: 02/15/25 23:44 Last Titration: 01/17/25 01:30 Dose: 700 units/hr, 14 mls/hr Documented By: SALENA Co-signed By: WALKER Titration: 01/17/25 01:06 Dose: 0 units/hr, 0 mls/hr Documented By: SALENA Co-signed By: RUSSELL Admin: 01/17/25 01:01 Dose: 700 units/hr, 14 mls/hr Documented By: SALENA Co-signed By: ADELSO Insulin Aspart (Insulin Aspart Per Unit Charge) 0 units SC Q6 [facility] Stop: 02/15/25 20:59 Last Admin: 01/17/25 01:00 Dose: Not Given Documented By: SALENA Co-signed By: ADELSO Discontinued Medications Heparin Sodium/Dextrose (Heparin Iv Adult Wt-Based Low-Dose *No* Initial Bolus Protocol) 1 each IV Q15M [facility]; Protocol Stop: 01/17/25 02:00 Last Admin: 01/17/25 00:52 Dose: Not Given Documented By: SALENA Sodium Chloride (Nss) 1,000 mls @ 999 mls/hr IV .Q1H1M ONE Stop: 01/16/25 12:45 Last Infusion: 01/16/25 13:46 Dose: Infused Documented By: Admin: 01/16/25 12:08 Dose: 999 mls/hr Documented By: KAYLENE Famotidine (Pepcid 20mg Iv Push) 20 mg in 5 mls @ 2.5 mls/min IV NOW STA Stop: 01/16/25 11:46 Last Admin: 01/16/25 12:08 Dose: 2.5 mls/min Documented By: KAYLENE Piperacillin Sod/Tazobactam Sod (Zosyn) 4.5 gm in 100 mls @ 200 mls/hr IV NOW ONE; Protocol Stop: 01/16/25 14:47 Last Infusion: 01/16/25 16:25 Dose: Infused Documented By: Admin: 01/16/25 14:54 Dose: 200 mls/hr Documented By: IZZY Insulin Aspart (Insulin Aspart Per Unit Charge) 0 units SC ACHS [facility] Stop: 02/15/25 20:59 Last Admin: 01/16/25 21:20 Dose: Not Given Documented By: GERARD Ioversol (Optiray 320 125ml) 70 ml IV ONCE ONE Stop: 01/16/25 13:56 Last Admin: 01/16/25 13:55 Dose: 70 ml Documented By: GELACIO Miscellaneous (Patient's Height &/Or Weight Needed) 1 each N/A Q2H [facility] Stop: 01/16/25 19:53 Last Admin: 01/16/25 20:54 Dose: 1 each Documented By: KAROLYN Ondansetron HCl (Ondansetron Inj 2 Mg/Ml 2 Ml Vial) 4 mg IV NOW STA Stop: 01/16/25 11:46 Last Admin: 01/16/25 12:08 Dose: 4 mg Documented By: KAYLENE Imaging Data Radiologist's Impression: Abdomen/Pelvis CT 01/16/25 12:51 EXAMINATION: CT of the abdomen and pelvis performed after the administration of IV contrast TECHNIQUE: Helical CT images from the lung bases through the symphysis pubis were obtained with contrast. Coronal and sagittal reformatted images were generated at a workstation for further assessment. Dose reduction techniques were achieved by using automatic exposure control and/or adjustment of mA and/or kV according to patient size and/or use of iterative reconstruction technique. COMPARISON: None HISTORY: Abdominal pain FINDINGS: Lower chest: No consolidation. No pleural effusion or pneumothorax. Liver: No suspicious liver lesions. Portal veins appear patent. Gallbladder: There is a small calcified gallstone. The gallbladder is distended, with a diameter of up to 4.0 cm. No significant inflammatory change. Spleen: Normal size. Pancreas: No suspicious pancreatic lesions. The pancreatic duct is not dilated. Adrenal glands: No adrenal nodules. Kidneys: No hydronephrosis or obstructing renal stones. Bladder / Pelvic organs: There is a left ovarian cyst measuring 4.0 x 2.9 cm. The uterus is present, containing small fibroids.. Bowel: No bowel obstruction. Extensive inflammatory change noted along the length of the sigmoid colon, as well as significant bowel wall thickening and edema. Posterior to the proximal aspect of the sigmoid colon as seen on series 6 image 243, is an ovoid thin rimmed collection containing fluid and a few foci of air measuring 17 x 9 mm. The appendix is unremarkable. Lymph nodes: No retroperitoneal, mesenteric, or pelvic lymphadenopathy. Peritoneum / Retroperitoneum: No free fluid or air within the abdomen. Vessels: No infrarenal aortic aneurysm. Bones and soft tissues: No suspicious lesion in the bones. IMPRESSION: Extensive inflammatory change and prominent wall thickening and edema along the length of the sigmoid colon, associated with numerous diverticula, and evidence of diverticulitis. A small, contained perforation appears to be seen about the posterior aspect of the proximal sigmoid:, Concerning for developing abscess. No armando peritoneal free air. Electronically signed by Jitendra Taylor 01-16-2025 2:08 PM Chest CTA 01/16/25 12:51 CT pulmonary angiogram with IV contrast History: Chest pain COMPARISON: None TECHNIQUE: CT angiography of the chest was performed without IV contrast followed by IV contrast, including 3D post processing CTA image reconstruction. Dose reduction techniques were achieved by using automatic exposure control and/or adjustment of mA and/or kV according to patient size and/or use of iterative reconstruction technique. FINDINGS: Diagnostic quality: Adequate There is no evidence for pulmonary embolism. The heart is not enlarged. There is no pericardial effusion. There are no abnormally enlarged hilar or mediastinal lymph nodes. The central tracheobronchial tree is clear. Mild scattered bandlike atelectasis in the mid lungs and lung bases, as well as the medial right lung apex. There is diffuse mosaic attenuation of the lungs. There is no pleural effusion. Limited visualized upper abdomen. No destructive osseous changes are seen. IMPRESSION: No evidence for pulmonary embolism. Mosaic attenuation of the lungs which may be seen with small airway or small vessel disease. Electronically signed by Jitendra Taylor 01-16-2025 2:08 PM Discharge Plan Visit Data Chief Complaint: Vomiting Stated Complaint: NAUSEA, VOMITING ED Provider: Gideon Mariano Discharge Problem: Acute diverticulitis, Acute renal failure, Elevated troponin, Right bundle branch block Patient Disposition: Admitted As Inpatient Discharge Instructions Interventions: ED Discharge Assessment Last Done: 01/16/25 19:47 Discharge Problem: Acute renal failure Qualifiers: Acute renal failure type: unspecified Qualified Code(s): N17.9 - Acute kidney failure, unspecified
--- NOTE | 2025-01-16 13:02 | XRay Report ---
KUB CLINICAL HISTORY: Nausea and vomiting. COMPARISON STUDY: CT of the abdomen and pelvis January 07, 2014. FINDINGS: The bowel gas pattern is normal. Mild lumbar spine levoscoliosis is incidentally noted. No urinary calculi are identified. The amount of stool is within normal limits. IMPRESSION: No evidence for a bowel obstruction. ACT 112: Negative or not required by law. Electronically signed by: Carlos Lind M.D. 01/16/2025 1:00 PM
[2025-01-16 13:44] LABS: Adenovirus PCR Not Detected (NotDetected); Bordetella parapertussis PCR Not Detected (NotDetected); Bordetella pertussis PCR Not Detected (NotDetected); Chlamydia pneumoniae PCR Not Detected (NotDetected); Coronavirus 229E PCR Not Detected (NotDetected); Coronavirus CoV-2 (COVID19)PCR Not Detected (NotDetected); Coronavirus HKU1 PCR Not Detected (NotDetected); Coronavirus NL63 PCR Not Detected (NotDetected); Coronavirus OC43PCR Not Detected (NotDetected); Human Metapneumovirus PCR Not Detected (NotDetected); Influenza A PCR Not Detected (NotDetected); Influenza B PCR Not Detected (NotDetected); Mycoplasma pneumoniae PCR Not Detected (NotDetected); Parainfluenza Virus 1 PCR Not Detected (NotDetected); Parainfluenza Virus 2 PCR Not Detected (NotDetected); Parainfluenza Virus 3 PCR Not Detected (NotDetected); Parainfluenza Virus 4 PCR Not Detected (NotDetected); Respiratory Syncytial VirusPCR Not Detected (NotDetected); Rhinovirus/Enterovirus PCR Not Detected (NotDetected)
[2025-01-16] MEDS: OPTIRAY 320 125ml IV ONE (13:55)
--- NOTE | 2025-01-16 14:08 | CT Scan Report ---
CT pulmonary angiogram with IV contrast History: Chest pain COMPARISON: None TECHNIQUE: CT angiography of the chest was performed without IV contrast followed by IV contrast, including 3D post processing CTA image reconstruction. Dose reduction techniques were achieved by using automatic exposure control and/or adjustment of mA and/or kV according to patient size and/or use of iterative reconstruction technique. FINDINGS: Diagnostic quality: Adequate There is no evidence for pulmonary embolism. The heart is not enlarged. There is no pericardial effusion. There are no abnormally enlarged hilar or mediastinal lymph nodes. The central tracheobronchial tree is clear. Mild scattered bandlike atelectasis in the mid lungs and lung bases, as well as the medial right lung apex. There is diffuse mosaic attenuation of the lungs. There is no pleural effusion. Limited visualized upper abdomen. No destructive osseous changes are seen. IMPRESSION: No evidence for pulmonary embolism. Mosaic attenuation of the lungs which may be seen with small airway or small vessel disease. Electronically signed by Jitendra Taylor 01-16-2025 2:08 PM
--- NOTE | 2025-01-16 14:08 | CT Scan Report ---
EXAMINATION: CT of the abdomen and pelvis performed after the administration of IV contrast TECHNIQUE: Helical CT images from the lung bases through the symphysis pubis were obtained with contrast. Coronal and sagittal reformatted images were generated at a workstation for further assessment. Dose reduction techniques were achieved by using automatic exposure control and/or adjustment of mA and/or kV according to patient size and/or use of iterative reconstruction technique. COMPARISON: None HISTORY: Abdominal pain FINDINGS: Lower chest: No consolidation. No pleural effusion or pneumothorax. Liver: No suspicious liver lesions. Portal veins appear patent. Gallbladder: There is a small calcified gallstone. The gallbladder is distended, with a diameter of up to 4.0 cm. No significant inflammatory change. Spleen: Normal size. Pancreas: No suspicious pancreatic lesions. The pancreatic duct is not dilated. Adrenal glands: No adrenal nodules. Kidneys: No hydronephrosis or obstructing renal stones. Bladder / Pelvic organs: There is a left ovarian cyst measuring 4.0 x 2.9 cm. The uterus is present, containing small fibroids.. Bowel: No bowel obstruction. Extensive inflammatory change noted along the length of the sigmoid colon, as well as significant bowel wall thickening and edema. Posterior to the proximal aspect of the sigmoid colon as seen on series 6 image 243, is an ovoid thin rimmed collection containing fluid and a few foci of air measuring 17 x 9 mm. The appendix is unremarkable. Lymph nodes: No retroperitoneal, mesenteric, or pelvic lymphadenopathy. Peritoneum / Retroperitoneum: No free fluid or air within the abdomen. Vessels: No infrarenal aortic aneurysm. Bones and soft tissues: No suspicious lesion in the bones. IMPRESSION: Extensive inflammatory change and prominent wall thickening and edema along the length of the sigmoid colon, associated with numerous diverticula, and evidence of diverticulitis. A small, contained perforation appears to be seen about the posterior aspect of the proximal sigmoid:, Concerning for developing abscess. No armando peritoneal free air. Electronically signed by Jitendra Taylor 01-16-2025 2:08 PM
--- NOTE | 2025-01-16 14:37 | History & Physical Report ---
Date of Service January 16, 2025 History of Present Illness Chief Complaint: Nausea/Vomiting/Diarrhea Primary Care Provider: Jere Miramontes MD Allergies Allergy/AdvReac Type Severity Reaction Status Date / Time No Known Allergies Allergy Unverified 03/23/18 11:11 Home Medications Medication Instructions Recorded Confirmed Type Lisinopril (Zestril) 10 mg PO DAILY ##0 11/18/17 History METFORMIN HCL (GLUCOPHAGE) 1,000 mg PO BID ##0 11/18/17 History Simvastatin (Zocor) 20 mg PO HS ##0 11/18/17 History GLIPIZIDE (GLIPIZIDE ER) 2.5 mg PO DAILY ##0 03/23/18 History Past Med/Surg History Problem List DM (diabetes mellitus) (Chronic) Acute diverticulitis (Acute) Abdominal pain (Acute) History of cancer Headache Altered mental status Social History Smoking Status: Never smoker Preferred Language: Nauruan Feels Safe at Home: Yes Results & Data Results & Data Vital Signs (Past 12 Hours) Vital Signs Temp Pulse Pulse Resp BP BP Pulse Ox 01/16/25 13:59 79 18 116/84 96 01/16/25 13:00 76 23 115/69 94 01/16/25 12:27 79 20 102/64 01/16/25 12:13 79 01/16/25 12:03 81 15 109/67 98 01/16/25 11:05 36.6 C 84 20 94/58 L 95 O2 Del Method 01/16/25 13:59 Room Air 01/16/25 13:00 01/16/25 12:27 01/16/25 12:13 01/16/25 12:03 01/16/25 11:05 Room Air
[2025-01-16 14:43] LABS: Lipase 6 U/L (11-82)
[2025-01-16] MEDS: PIPERACILLIN/TAZOBACTAM 4.5 GM/100 ML BAG IV ONE (14:54)
--- NOTE | 2025-01-16 15:55 | Electrocardiogram Report ---
Test Reason : Blood Pressure : */* mmHG Vent. Rate : 81 BPM Atrial Rate : 81 BPM P-R Int : 162 ms QRS Dur : 122 ms QT Int : 418 ms P-R-T Axes : 55 54 26 degrees QTcB Int : 485 ms Normal sinus rhythm Right bundle branch block Abnormal ECG When compared with ECG of 24-Mar-2018 13:58, Right bundle branch block is now Present Confirmed by Jitendra Disla ([id number]) on 01/16/2025 3:54:52 PM Referred By: REFERRED SELF Confirmed By: Jitendra Disla
--- NOTE | 2025-01-16 17:00 | History & Physical Report ---
Date of Service January 16, 2025 Assessment & Plan (1) Acute diverticulitis: Plan: 79-year-old female with history of diabetes type 2, hypertension, dyslipidemia, CKD stage III presenting with lower abdominal pain and vomiting which started this morning. Acute diverticulitis with perforation, possible abscess CT abdomen pelvis: Extensive inflammatory change and prominent wall thickening and edema along the length of the sigmoid colon, associated with numerous diverticula, and evidence of diverticulitis. A small, contained perforation appears to be seen about the posterior aspect of the proximal sigmoid:, Concerning for developing abscess. No armando peritoneal free air. No signs of sepsis Check blood culture in light of presence of abscess IV Zosyn, renally dosed N.p.o., IV fluids, pain control General Surgery consulted, discussed case with ER physician, no emergent surgery at this point Acute kidney injury, on CKD stage III Likely prerenal etiology secondary to dehydration Baseline 0.8, currently 2.0 CT abdomen and pelvis: No obstruction Continue IV fluids Hold usual irbesartan Repeat BMP tomorrow Troponin elevation No cardiac symptoms, no ischemia or infarct on EKG From acute kidney injury? Troponin 2500 Check second set now, third set 11 PM Check echocardiogram Back pain, left hip pain, rule out fracture Status post fall, January 06, 2025 Fell after getting up from kitchen chair, felt dizzy, landed on her buttocks Check lumbar spine, bilateral hip and pelvis x-rays Pain control with IV Tylenol as needed, morphine as needed Fall associated with dizziness-monitor Diabetes type 2 Hold Jardiance, metformin Insulin sliding scale Hypertension Hold irbesartan DVT prophylaxis SCDs for now in light of perforated diverticulitis CODE STATUS Full code as per patient Disposition Pending, lives at home with family History of Present Illness Chief Complaint: Lower abdominal pain and vomiting which started this morning Primary Care Provider: Jere Miramontes MD 79-year-old female with history of diabetes type 2, hypertension, dyslipidemia, CKD stage III presenting with lower abdominal pain and vomiting which started this morning. Last January 06, 2025, patient had a fall after turning around to get up in her kitchen chair, landing on her buttocks. No loss of consciousness noted. Patient was seen at an outside hospital ER. She is not aware of any fractures seen during that time. Patient reports that she has been having low back pain and left hip pain since that incident. Today, patient started to have lower abdominal discomfort, associated with multiple episodes of vomiting-nonbloody. She denies having fevers or chills. At the ER, patient received with multiple stable vital signs overall. CT abdomen and pelvis showed diverticulitis with perforation, possible developing abscess. She was given IV Zosyn, NSS, Zofran and famotidine. Creatinine was also found to be 2.0, and troponin level 2541 with EKG showing no signs of acute ischemia. On exam, patient seen resting in bed, with his later at the bedside. She has some mild lower abdominal discomfort, and left hip pain. She denies having active shortness of breath, chest pain, palpitations, dizziness. No other new symptoms. Allergies Allergy/AdvReac Type Severity Reaction Status Date / Time No Known Allergies Allergy Unverified 03/23/18 11:11 Home Medications Medication Instructions Recorded Confirmed Type Lisinopril (Zestril) 10 mg PO UD ##0 11/18/17 01/16/25 History metformin 1,000 mg tablet 1,000 mg PO BID ##0 11/18/17 01/16/25 History simvastatin 20 mg tablet 20 mg PO DAILY ##0 11/18/17 01/16/25 History GLIPIZIDE (GLIPIZIDE ER) 2.5 mg PO UD ##0 03/23/18 01/16/25 History calcitonin (salmon) 200 1 spray intranasal DIRECTED 01/16/25 01/16/25 History unit/actuation nasal spray empagliflozin 10 mg tablet 10 mg PO DAILY 01/16/25 01/16/25 History (Jardiance) irbesartan 150 mg tablet 150 mg PO HS 01/16/25 01/16/25 History oxycodone-acetaminophen 5 mg-325 1 tab PO Q6H PRN Pain 01/16/25 01/16/25 History mg tablet Past Med/Surg History Problem List DM (diabetes mellitus) (Chronic) Acute diverticulitis (Acute) Abdominal pain (Acute) History of cancer Headache Altered mental status Social History Smoking Status: Never smoker Preferred Language: Macedonian Feels Safe at Home: Yes Review of Systems Review of Systems: all noted and negative except for above Physical Exam Physical Exam: General- oriented x 3, not in distress, speaks in sentences with no effort or accessory muscle use Head- atraumatic Eyes- PERRL, EOMI, anicteric Absent right ear, status post surgery ENT- oropharynx clear Neck- supple, no JVD, no adenopathy, no thyromegaly; carotids +2/2, no bruits appreciated Lungs- clear to auscultation bilaterally, no rales/wheezes Heart- normal rate, regular rhythm; no murmur, no gallop, no rub appreciated Abdomen- normal bowel sounds, nondistended, soft, Very mild lower quadrant, bilateral tenderness, no masses or hepatosplenomegaly Extremities- no pretibial edema, no calf tenderness; peripheral pulses intact Neuro- alert, oriented x 3; CN 2-12 grossly intact; motor 5/5 bilaterally;sensation 100% on all extremities; no other gross focal neurologic deficits Skin- warm & dry Results & Data Results & Data Vital Signs (Past 12 Hours) Vital Signs Temp Pulse Pulse Resp BP BP Pulse Ox 01/16/25 16:15 75 01/16/25 16:00 76 19 123/61 93 01/16/25 13:59 79 18 116/84 96 01/16/25 13:00 76 23 115/69 94 01/16/25 12:27 79 20 102/64 01/16/25 12:13 79 01/16/25 12:03 81 15 109/67 98 01/16/25 11:05 36.6 C 84 20 94/58 L 95 O2 Del Method 01/16/25 16:15 01/16/25 16:00 Room Air 01/16/25 13:59 Room Air 01/16/25 13:00 01/16/25 12:27 01/16/25 12:13 01/16/25 12:03 01/16/25 11:05 Room Air all noted and reviewed including below Code Status & VTE Plan VTE Prophylaxis Plan VTE Prophylaxis will be ordered: Yes
--- NOTE | 2025-01-16 17:42 | Surgery Consultation ---
Date of Consultation January 16, 2025 Assessment & Plan (1) Acute diverticulitis: 79-year-old woman with acute diverticulitis with microperforation. No defined abscess, no free perforation. No surgical indications at this time. She will require IV antibiotics and a clear liquid diet. Will continue to follow while she is in the hospital. History of Present Illness Reason for Consultation: Diverticulitis with microperforation Requesting Physician: ED physician Attending Physician: ED physician History of Present Illness 79-year-old woman with a history of diverticulitis presents with pain in the left lower quadrant as well as uncontrollable nausea and vomiting yesterday. She did fall approximately 10 days ago. Currently she is not having any pain. She denies fevers or chills. She is hungry. She denies diarrhea. CT scan demonstrates acute diverticulitis with microperforation. Allergies Allergy/AdvReac Type Severity Reaction Status Date / Time No Known Allergies Allergy Unverified 03/23/18 11:11 Home Medications Medication Instructions Recorded Confirmed Type Lisinopril (Zestril) 10 mg PO UD ##0 11/18/17 01/16/25 History metformin 1,000 mg tablet 1,000 mg PO BID ##0 11/18/17 01/16/25 History simvastatin 20 mg tablet 20 mg PO DAILY ##0 11/18/17 01/16/25 History GLIPIZIDE (GLIPIZIDE ER) 2.5 mg PO UD ##0 03/23/18 01/16/25 History calcitonin (salmon) 200 1 spray intranasal DIRECTED 01/16/25 01/16/25 History unit/actuation nasal spray empagliflozin 10 mg tablet 10 mg PO DAILY 01/16/25 01/16/25 History (Jardiance) irbesartan 150 mg tablet 150 mg PO HS 01/16/25 01/16/25 History oxycodone-acetaminophen 5 mg-325 1 tab PO Q6H PRN Pain 01/16/25 01/16/25 History mg tablet Patient History Social History Smoking Status: Never smoker Preferred Language: Spanish Feels Safe at Home: Yes Review of Systems Review of Systems: All systems reviewed & are unremarkable except as noted in HPI & below Physical Exam Constitutional: WD/WN, vitals as above Eyes: PERRL, conjunctivae normal, anicteric sclerae Neck: trachea midline, no thyromegaly Respiratory: normal respiratory effort; no respiratory distress and no labored breathing Cardiovascular: Rate/Rhythm: regular rate and regular rhythm Gastrointestinal (Abdomen): Inspection/Auscultation: abdomen normal to inspection; abdomen not distended Percussion/Palpation: + abdomen tender ( LLQ) and abdomen soft; no guarding and abdomen not rigid Skin: no rashes, warm and dry Psychiatric: A+Ox3, euthymic affect Results & Data Vital Signs (Past 12 Hours) Vital Signs Temp Pulse Pulse Resp BP BP Pulse Ox 01/16/25 16:15 75 01/16/25 16:00 76 19 123/61 93 01/16/25 13:59 79 18 116/84 96 01/16/25 13:00 76 23 115/69 94 01/16/25 12:27 79 20 102/64 01/16/25 12:13 79 01/16/25 12:03 81 15 109/67 98 01/16/25 11:05 36.6 C 84 20 94/58 L 95 O2 Del Method 01/16/25 16:15 01/16/25 16:00 Room Air 01/16/25 13:59 Room Air 01/16/25 13:00 01/16/25 12:27 01/16/25 12:13 01/16/25 12:03 01/16/25 11:05 Room Air Laboratory Results 01/16/25 01/16/25 01/16/25 Range/Units 11:34 11:18 11:18 WBC 14.47 H (4.8-10.8) K/ul RBC 4.98 (4.20-5.40) M/uL Hgb 14.1 (12.0-16.0) g/dl Hct 43.0 (37.0-47.0) % MCV 86.3 (80.0-100.0) fL MCH 28.3 (25.0-34.0) pg MCHC 32.8 (32.0-36.0) g/dL RDW Std Deviation 48.9 H (36.4-46.3) fL RDW Coeff of Joan 15.6 H (11.5-14.5) % Plt Count 421 H (130-400) K/uL MPV 9.2 L (9.4-12.4) fL Immature Gran % (Auto) 0.5 % Neut % (Auto) 84.7 % Lymph % (Auto) 6.6 % [place] % (Auto) 7.7 % Eos % (Auto) 0.0 % Baso % (Auto) 0.5 % Neut # (Auto) 12.26 H (1.40-6.50) K/uL Lymph # (Auto) 0.96 L (1.20-3.40) K/uL [place] # (Auto) 1.11 H (0.11-0.59) K/uL Eos # (Auto) 0.00 (0.00-0.50) K/uL Baso # (Auto) 0.07 (0.00-0.20) K/uL Immature Gran # (Auto) 0.07 (0.01-0.20) K/uL Sodium 137 (136-145) mmol/L Potassium 4.6 (3.5-5.1) mmol/L Chloride 100 (98-107) mmol/L Carbon Dioxide 22 (21-32) mmol/L Anion Gap 15 H (3-11) BUN 31 H (6-23) mg/dl Creatinine 2.03 H (0.6-1.2) mg/dl Est Cr Clr Drug Dosing Not Reportable eGFR 24.50 BUN/Creatinine Ratio 15.3 (10-20) Glucose 119 H (70-99(Fasting)) mg/dl Calcium 9.3 (8.6-10.3) mg/dl Phosphorus 5.3 H (2.5-4.9) mg/dl Magnesium 2.0 (1.7-2.4) mg/dl Total Bilirubin 0.4 (0.2-1.0) mg/dl AST 30 (13-39) U/L ALT 11 (7-52) U/L Alkaline Phosphatase 71 (34-104) U/L Troponin I High Sens 2541.6 H* (0-14) pg/ml Total Protein 7.1 (6.0-8.3) gm/dl Albumin 3.5 (3.4-5.0) gm/dl Globulin 3.6 (2.5-4.0) gm/dl Albumin/Globulin Ratio 1.0 (0.9-2) Lipase 6 L (11-82) U/L Procalcitonin 47.50 H (0-0.5) ng/ml Adenovirus (PCR) (NotDetected) B. pertussis DNA (PCR) (NotDetected) B.parapertussis DNA PCR (NotDetected) C. pneumoniae DNA (PCR) (NotDetected) Coronavirus OC43 (PCR) (NotDetected) Coronavirus HKU1 (PCR) (NotDetected) Coronavirus 229E (PCR) (NotDetected) SARS-CoV-2 (PCR) (Negative) Coronavirus NL63 (PCR) (NotDetected) Human Metapneumovir PCR (NotDetected) Influenza Type A (PCR) Not Detected (Neg) Influenza Type B (PCR) Not Detected Negative (Neg) M. pneumoniae (PCR) Not Detected (NotDetected) Parainfluenza 1 (PCR) Not Detected (NotDetected) Parainfluenza 2 (PCR) Not Detected (NotDetected) Parainfluenza 3 (PCR) Not Detected (NotDetected) Parainfluenza 4 (PCR) Not Detected (NotDetected) RSV (RT-PCR) Negative (Neg) RSV (PCR) Not Detected (NotDetected) Entero/Rhino (PCR) Not Detected (NotDetected) 01/16/25 01/16/25 Range/Units 11:18 11:18 WBC (4.8-10.8) K/ul RBC (4.20-5.40) M/uL Hgb (12.0-16.0) g/dl Hct (37.0-47.0) % MCV (80.0-100.0) fL MCH (25.0-34.0) pg MCHC (32.0-36.0) g/dL RDW Std Deviation (36.4-46.3) fL RDW Coeff of Joan (11.5-14.5) % Plt Count (130-400) K/uL MPV (9.4-12.4) fL Immature Gran % (Auto) % Neut % (Auto) % Lymph % (Auto) % [place] % (Auto) % Eos % (Auto) % Baso % (Auto) % Neut # (Auto) (1.40-6.50) K/uL Lymph # (Auto) (1.20-3.40) K/uL [place] # (Auto) (0.11-0.59) K/uL Eos # (Auto) (0.00-0.50) K/uL Baso # (Auto) (0.00-0.20) K/uL Immature Gran # (Auto) (0.01-0.20) K/uL Sodium (136-145) mmol/L Potassium (3.5-5.1) mmol/L Chloride (98-107) mmol/L Carbon Dioxide (21-32) mmol/L Anion Gap (3-11) BUN (6-23) mg/dl Creatinine (0.6-1.2) mg/dl Est Cr Clr Drug Dosing eGFR BUN/Creatinine Ratio (10-20) Glucose (70-99(Fasting)) mg/dl Calcium (8.6-10.3) mg/dl Phosphorus (2.5-4.9) mg/dl Magnesium (1.7-2.4) mg/dl Total Bilirubin (0.2-1.0) mg/dl AST (13-39) U/L ALT (7-52) U/L Alkaline Phosphatase (34-104) U/L Troponin I High Sens (0-14) pg/ml Total Protein (6.0-8.3) gm/dl Albumin (3.4-5.0) gm/dl Globulin (2.5-4.0) gm/dl Albumin/Globulin Ratio (0.9-2) Lipase (11-82) U/L Procalcitonin (0-0.5) ng/ml Adenovirus (PCR) Not Detected (NotDetected) B. pertussis DNA (PCR) Not Detected (NotDetected) B.parapertussis DNA PCR Not Detected (NotDetected) C. pneumoniae DNA (PCR) Not Detected (NotDetected) Coronavirus OC43 (PCR) Not Detected (NotDetected) Coronavirus HKU1 (PCR) Not Detected (NotDetected) Coronavirus 229E (PCR) Not Detected (NotDetected) SARS-CoV-2 (PCR) Not Detected NEGATIVE (Negative) Coronavirus NL63 (PCR) Not Detected (NotDetected) Human Metapneumovir PCR Not Detected (NotDetected) Influenza Type A (PCR) Negative (Neg) Influenza Type B (PCR) (Neg) M. pneumoniae (PCR) (NotDetected) Parainfluenza 1 (PCR) (NotDetected) Parainfluenza 2 (PCR) (NotDetected) Parainfluenza 3 (PCR) (NotDetected) Parainfluenza 4 (PCR) (NotDetected) RSV (RT-PCR) (Neg) RSV (PCR) (NotDetected) Entero/Rhino (PCR) (NotDetected) Diagnostic Findings EXAMINATION: CT of the abdomen and pelvis performed after the administration of IV contrast TECHNIQUE: Helical CT images from the lung bases through the symphysis pubis were obtained with contrast. Coronal and sagittal reformatted images were generated at a workstation for further assessment. Dose reduction techniques were achieved by using automatic exposure control and/or adjustment of mA and/or kV according to patient size and/or use of iterative reconstruction technique. COMPARISON: None HISTORY: Abdominal pain FINDINGS: Lower chest: No consolidation. No pleural effusion or pneumothorax. Liver: No suspicious liver lesions. Portal veins appear patent. Gallbladder: There is a small calcified gallstone. The gallbladder is distended, with a diameter of up to 4.0 cm. No significant inflammatory change. Spleen: Normal size. Pancreas: No suspicious pancreatic lesions. The pancreatic duct is not dilated. Adrenal glands: No adrenal nodules. Kidneys: No hydronephrosis or obstructing renal stones. Bladder / Pelvic organs: There is a left ovarian cyst measuring 4.0 x 2.9 cm. The uterus is present, containing small fibroids.. Bowel: No bowel obstruction. Extensive inflammatory change noted along the length of the sigmoid colon, as well as significant bowel wall thickening and edema. Posterior to the proximal aspect of the sigmoid colon as seen on series 6 image 243, is an ovoid thin rimmed collection containing fluid and a few foci of air measuring 17 x 9 mm. The appendix is unremarkable. Lymph nodes: No retroperitoneal, mesenteric, or pelvic lymphadenopathy. Peritoneum / Retroperitoneum: No free fluid or air within the abdomen. Vessels: No infrarenal aortic aneurysm. Bones and soft tissues: No suspicious lesion in the bones. IMPRESSION: Extensive inflammatory change and prominent wall thickening and edema along the length of the sigmoid colon, associated with numerous diverticula, and evidence of diverticulitis. A small, contained perforation appears to be seen about the posterior aspect of the proximal sigmoid:, Concerning for developing abscess. No armando peritoneal free air. Electronically signed by Jitendra Taylor 01-16-2025 2:08 PM
[2025-01-16] MEDS ORDERED: GLUCOSE 10 TAB/TUBE PO PRN (19:47)
[2025-01-16] MEDS ORDERED: PHARMACY GLYCEMIC MGMT CONSULT PRN (19:47)
[2025-01-16] MEDS ORDERED: DEXTROSE 50% 50 ML SYRINGE IV PRN (19:47)
[2025-01-16] MEDS ORDERED: GLUCAGON FOR INJ 1 MG VIAL SQ PRN (19:47)
[2025-01-16] MEDS ORDERED: GLUCOSE 40% GEL 15 GM TUBE PO PRN (19:47)
[2025-01-16] MEDS ORDERED: CARBOHYDRATES FOR HYPOGLYCEMIA PO PRN (19:47)
[2025-01-16] MEDS ORDERED: MoRPHine SULFATE 2 MG/ML CARP IV PRN (19:47)
--- NOTE | 2025-01-16 20:35 | XRay Report ---
HISTORY: Back pain. TECHNIQUE: Lumbar spine, 3 views. COMPARISON: CT the abdomen pelvis from the same day (01/16/2025). FINDINGS: Lumbar levoscoliosis. Grade 1 anterolisthesis of L3 on L4 measuring 0.3 cm.There is mild compression deformity involving the superior endplate of T12 with approximately 10% anterior vertebral body height loss. Mild multilevel degenerative disc disease. Lower lumbar facet arthrosis. Contrast within the urinary bladder. IMPRESSION: 1. Compression fracture involving the superior endplate of T12 with approximately 10% anterior vertebral body height loss is age indeterminant and could be acute.Further evaluation is recommended with CT or MRI of the lumbar spine. 2. Moderate degenerative spondylosis of the lumbar spine. 3. Lumbar levoscoliosis. 4. Grade 1 anterolisthesis of L3 on L4 measuring 0.3 cm. Electronically signed by Aquilino Hansen 01-16-2025 8:34 PM
[2025-01-16] MEDS: CALCITONIN SALMON NA 200 IU/AC 3.7 ML BTL SCH (20:53)
[2025-01-16] MEDS: Patient's HEIGHT &/or WEIGHT Needed STA (20:54)
[2025-01-16] MEDS: SODIUM CHLORIDE 0.9% 1,000 ML IV SCH (20:55)
[2025-01-16] MEDS: INSULIN ASPART PER UNIT CHARGE SC SCH (21:20)
[2025-01-16] MEDS: PIPERACILLIN/TAZOBACTAM 4.5 GM/100 ML BAG IV SCH (22:07)
--- NOTE | 2025-01-16 22:14 | CT Scan Report ---
Exam(s): CT HEAD Without Contrast EXAM: CT Head Without Intravenous Contrast CLINICAL HISTORY: Injury TECHNIQUE: Axial computed tomography images of the head/brain without intravenous contrast. CTDI is 38 mGy and DLP is 546 mGy-cm. Automated exposure control was utilized for the study. A dose lowering technique was utilized adhering to the principles of ALARA. COMPARISON: MRI brain 01/21/2017. FINDINGS: Brain: No intracranial hemorrhage, mass-effect or midline shift. No abnormal extra axial fluid. No evidence of acute infarct. Mild periventricular white matter hypodensities are most consistent with chronic microangiopathy. There is encephalomalacia of the right temporal lobe and right cerebellum. Ventricles: Unremarkable. No ventriculomegaly. Bones/joints: Unremarkable. No skull fracture. Soft tissues: Unremarkable. Sinuses: There is fluid in the left maxillary sinus. Mastoid air cells: Large right mastoid effusion. IMPRESSION: 1. No acute intracranial finding. 2. There is fluid in the left maxillary sinus. This could relate to sinusitis or nonvisualized maxillary fracture. 3. Large right mastoid effusion. Electronically signed by: Nichole Abdul MD 01/16/25 22:13 PM
--- NOTE | 2025-01-17 00:30 | XRay Report ---
Exam(s): XR BILATERAL HIP + PELVIS, 2-3 views EXAM: XR Bilateral Hips With Pelvis When Performed, 2 or 3 Views CLINICAL HISTORY: Fall TECHNIQUE: Three or four views of the bilateral hips with pelvis when performed. COMPARISON: No relevant prior studies available. FINDINGS: Bones/joints: Moderate degenerative changes both hips. No acute fracture. No dislocation. Soft tissues: Unremarkable. IMPRESSION: No acute findings in the bilateral hips. Electronically signed by: Nichole Abdul MD 01/17/25 00:29 AM
[2025-01-17] MEDS: Heparin IV Adult Wt-Based Low-Dose *NO* INITIAL Bolus Protocol IV SCH (00:52)
[2025-01-17] MEDS: INSULIN ASPART PER UNIT CHARGE SC SCH ×2 (01:00→17:06)
[2025-01-17] MEDS: HEPARIN 25000 UNIT/500 ML D5W 25,000 UNITS/500 ML BAG IV SCH (01:01)
[2025-01-17 01:59] LABS: Appearance Urine Clear (Clear); Bacteria Urine Automated None Seen (None Seen); Bilirubin Urine Negative (Negative); Blood Urine Negative (Negative); Cast Urine Automated 0-2 /lpf (0-2); Color Urine Yellow; Glucose Urine UA 3+ (Negative); Ketones Urine Trace (Negative); Leukocyte Esterase Urine 2+ (Negative); Nitrite Urine Negative (Negative); Protein Urine Trace (Negative); RBC Urine Automated 0-2 /hpf (0-2); Specific Gravity Urine 1.024 (1.000-1.030); Urobilinogen Urine Negative (Negative); WBC Urine Automated 21-50 /hpf (0-5)
--- NOTE | 2025-01-17 07:13 | Electrocardiogram Report ---
Test Reason : Blood Pressure : */* mmHG Vent. Rate : 73 BPM Atrial Rate : 73 BPM P-R Int : 182 ms QRS Dur : 142 ms QT Int : 436 ms P-R-T Axes : 52 68 66 degrees QTcB Int : 480 ms Normal sinus rhythm Right bundle branch block Abnormal ECG When compared with ECG of 16-Jan-2025 12:03, No significant change was found Confirmed by Jitendra Disla ([id number]) on 01/17/2025 7:13:25 AM Referred By: REFERRED SELF Confirmed By: Jitendra Disla
[2025-01-17 08:11] LABS: Basophils # (auto) 0.03 K/uL (0.00-0.20); Basophils % (auto) 0.4 %; Eosinophils # (auto) 0.03 K/uL (0.00-0.50); Eosinophils % (auto) 0.4 %; Hematocrit (blood only) 39.9 % (37.0-47.0); Hemoglobin 13.2 g/dl (12.0-16.0); Immature Granulocytes # (auto) 0.04 K/uL (0.01-0.20); Immature Granulocytes % (auto) 0.6 %; Lymphocytes # (auto) 0.62 K/uL (1.20-3.40); Lymphocytes % (auto) 8.6 %; Mean Corpuscular Hemoglobin 28.6 pg (25.0-34.0); Mean Corpuscular Hgb Conc 33.1 g/dL (32.0-36.0); Mean Corpuscular Volume 86.6 fL (80.0-100.0); Mean Platelet Volume 8.8 fL (9.4-12.4); Monocytes # (auto) 0.76 K/uL (0.11-0.59); Monocytes % (auto) 10.5 %; Neutrophils # (auto) 5.77 K/uL (1.40-6.50); Neutrophils % (auto) 79.5 %; Platelet Count 338 K/uL (130-400); RDW Coefficient of Variation 15.4 % (11.5-14.5); RDW Standard Deviation 49.1 fL (36.4-46.3); Red Blood Count 4.61 M/uL (4.20-5.40); White Blood Count 7.25 K/ul (4.8-10.8)
[2025-01-17 08:38] LABS: BUN Creatinine Ratio 21.8 (10-20); Calcium 8.3 mg/dl (8.6-10.3); Creatinine Clr Calc Pharmacy 35.9 ml/min; Potassium 3.7 mmol/L (3.5-5.1)
--- NOTE | 2025-01-17 09:08 | Pharmacy Report ---
Pharmacy Glycemic Short Note 2 - Date of Service January 17, 2025 - Glycemic Short BSG Results (Last 24 hours): 01/16/25 01/16/25 01/17/25 11:34 21:12 00:54 Glucose 119 H POC Glucose 109 H 154 H 01/17/25 01/17/25 05:53 07:55 Glucose 129 H POC Glucose 130 H OUTPATIENT ANTIDIABETIC REGIMEN: * Metformin 1g PO BID * Jardiance 10mg Daily * A1c pending ASSESSMENT: * 79 yo F, PMH type 2 DM, HTN, DL, CKD stage III presenting with lower abdominal pain and vomiting which started yesterday morning, acute diverticulitis with perforation, possible abscess. On IV Zosyn. * Pt is maintained on oral antidiabetic agents as an outpatient * Oral agents are not recommended for inpatient use d/t drug interactions, changing PO intake, and difficulty titrating for acute hyper/hypoglycemia. * Will hold oral agents for admission and utilize SQ basal bolus insulin regimen which is the recommended regimen for inpatient glycemic control. * Will initiate weight based insulin dosing for insulin elke patient and titrate based on BSG trends, no basal at this time as patient is NPO. PLAN FOR INPATIENT GLYCEMIC CONTROL: * Hold outpatient oral diabetes medications * Basal insulin * None at this time * Bolus insulin * NovoLog per scale ACHS or Q6hrs while NPO * Goal Range: Low 110 mg/dL - High 140 mg/dL * Correction Factor: 40 mg/dL/unit * Nutritional / Prandial insulin per carb ratio of 1 unit per 25 grams CHO consumed
[2025-01-17 09:59] LABS: Estimated Average Glucose 157 mg/dl; Hemoglobin A1C 7.1 % (4.5-5.6)
--- NOTE | 2025-01-17 12:44 | Hospitalist Progress Note ---
Date of Service January 17, 2025 Assessment & Plan (1) Acute diverticulitis: Plan: 79-year-old female with history of diabetes type 2, hypertension, dyslipidemia, CKD stage III presenting with vomiting. She reported she has been having occasional nausea and vomiting but got severe on day of admission Acute diverticulitis, possible abscess CT abdomen pelvis noted sigmoid diverticulitis with concern for developing abscess. No armando peritoneal free air. No signs of sepsis Gen surg evaluated and noted no defined abscess or free perforation Continue IVF Start clear liquid diet Elevated troponin Patient's trop was elevated 2541 on admission and trended up to 3376 Check trop today Denied chest pain/SOB but reported persistent vomiting yesterday Cannot rule out NSTEMI at this time Will continue hep gtt for now Get Cards c/s and follow up TTE Acute kidney injury, on CKD stage III Likely prerenal etiology secondary to dehydration Baseline 0.8, Cr was 2.0 on admission Continue IV fluids Cr improved to 1.19 today Continue to hold irbesartan for today Back pain, left hip pain, rule out fracture Recent fall, January 06, 2025 Fell after getting up from kitchen chair, felt dizzy, landed on her buttocks Lumbar CT showing acute to subacute compression fracture of superior plate of T12 with 20% loss of vertebrate height. Will get Ortho spine consult Check Vit D level Will get PT/OT once stable Diabetes type 2 Hold Jardiance, metformin Insulin sliding scale Hypertension Irbesartan on hold as above DVT prophylaxis On hep gtt CODE STATUS Full code as per patient I spent a total of 50 minutes coordinating, documenting and providing care for this patient excluding time spent in performance of separately billed services Admission and Anticipated Discharge Date Admission Date: January 16, 2025 Subjective Patient seen and examined Reports vomiting has resolved Denied abd pain, diarrhea, fever, chills Reports back pain since recent fall Denied chest pain, cough or SOB. Reports chronic rhinorrhea Physical Exam Constitutional: + well hydrated; no acute distress Eyes: PERRL, conjunctivae normal, anicteric sclerae ENMT: external ear and nose normal, oropharynx normal Respiratory: normal respiratory effort, lungs clear to auscultation Cardiovascular: Rate/Rhythm: regular rate and regular rhythm Gastrointestinal (Abdomen): normal bowel sounds, soft, nontender, no hepatosplenomegaly Musculoskeletal: No pedal edema Neurologic: PERRL, EOMI, accommodation nl, no face palsy, no dysarthria Psychiatric: A+Ox3, euthymic affect Results & Data Results & Data Vital Signs (Past 12 Hours) Vital Signs Temp Pulse Pulse Resp BP Pulse Ox O2 Del Method 01/17/25 11:30 36.7 C 69 18 140/70 98 Room Air 01/17/25 11:00 Room Air 01/17/25 09:40 76 01/17/25 09:25 36.8 C 79 19 136/77 98 Room Air 01/17/25 09:00 Room Air 01/17/25 07:19 72 22 158/68 H 95 Room Air 01/17/25 07:05 75 01/17/25 06:22 66 18 97 Room Air 01/17/25 02:58 69 20 139/69 98 Nasal Cannula 01/17/25 01:38 73 14 161/75 H 99 Nasal Cannula O2 Flow Rate 01/17/25 11:30 01/17/25 11:00 01/17/25 09:40 01/17/25 09:25 01/17/25 09:00 01/17/25 07:19 01/17/25 07:05 01/17/25 06:22 01/17/25 02:58 2 01/17/25 01:38 2 Laboratory Results Abnormal lab results 01/16/25 01/16/25 01/16/25 Range/Units 17:39 21:12 22:52 RDW Std Deviation (36.4-46.3) fL RDW Coeff of Joan (11.5-14.5) % MPV (9.4-12.4) fL Lymph # (Auto) (1.20-3.40) K/uL [place] # (Auto) (0.11-0.59) K/uL Heparin Anti-Xa, Unfract (0.3-0.7) IU/ml BUN (6-23) mg/dl BUN/Creatinine Ratio (10-20) Glucose (70-99(Fasting)) mg/dl POC Glucose 109 H (70-99) mg/dl Hemoglobin A1c (4.5-5.6) % Calcium (8.6-10.3) mg/dl Troponin I High Sens 3049.0 H* 3376.5 H* (0-14) pg/ml Urine Protein (Negative) Urine Glucose (UA) (Negative) Urine Ketones (Negative) Ur Leukocyte Esterase (Negative) Urine WBC (Auto) (0-5) /hpf U Epithel Cells (Auto) (0-2) /hpf 01/17/25 01/17/25 01/17/25 Range/Units 00:54 01:32 05:53 RDW Std Deviation (36.4-46.3) fL RDW Coeff of Joan (11.5-14.5) % MPV (9.4-12.4) fL Lymph # (Auto) (1.20-3.40) K/uL [place] # (Auto) (0.11-0.59) K/uL Heparin Anti-Xa, Unfract (0.3-0.7) IU/ml BUN (6-23) mg/dl BUN/Creatinine Ratio (10-20) Glucose (70-99(Fasting)) mg/dl POC Glucose 154 H 130 H (70-99) mg/dl Hemoglobin A1c (4.5-5.6) % Calcium (8.6-10.3) mg/dl Troponin I High Sens (0-14) pg/ml Urine Protein Trace H (Negative) Urine Glucose (UA) 3+ H (Negative) Urine Ketones Trace H (Negative) Ur Leukocyte Esterase 2+ H (Negative) Urine WBC (Auto) 21-50 H (0-5) /hpf U Epithel Cells (Auto) 3-5 H (0-2) /hpf 01/17/25 01/17/25 01/17/25 Range/Units 07:55 12:41 12:54 RDW Std Deviation 49.1 H (36.4-46.3) fL RDW Coeff of Joan 15.4 H (11.5-14.5) % MPV 8.8 L (9.4-12.4) fL Lymph # (Auto) 0.62 L (1.20-3.40) K/uL [place] # (Auto) 0.76 H (0.11-0.59) K/uL Heparin Anti-Xa, Unfract 0.20 L 0.18 L (0.3-0.7) IU/ml BUN 26 H (6-23) mg/dl BUN/Creatinine Ratio 21.8 H (10-20) Glucose 129 H (70-99(Fasting)) mg/dl POC Glucose (70-99) mg/dl Hemoglobin A1c 7.1 H (4.5-5.6) % Calcium 8.3 L (8.6-10.3) mg/dl Troponin I High Sens 2459.5 H* D (0-14) pg/ml Urine Protein (Negative) Urine Glucose (UA) (Negative) Urine Ketones (Negative) Ur Leukocyte Esterase (Negative) Urine WBC (Auto) (0-5) /hpf U Epithel Cells (Auto) (0-2) /hpf 01/17/25 Range/Units 13:35 RDW Std Deviation (36.4-46.3) fL RDW Coeff of Joan (11.5-14.5) % MPV (9.4-12.4) fL Lymph # (Auto) (1.20-3.40) K/uL [place] # (Auto) (0.11-0.59) K/uL Heparin Anti-Xa, Unfract (0.3-0.7) IU/ml BUN (6-23) mg/dl BUN/Creatinine Ratio (10-20) Glucose (70-99(Fasting)) mg/dl POC Glucose 113 H (70-99) mg/dl Hemoglobin A1c (4.5-5.6) % Calcium (8.6-10.3) mg/dl Troponin I High Sens (0-14) pg/ml Urine Protein (Negative) Urine Glucose (UA) (Negative) Urine Ketones (Negative) Ur Leukocyte Esterase (Negative) Urine WBC (Auto) (0-5) /hpf U Epithel Cells (Auto) (0-2) /hpf
--- NOTE | 2025-01-17 13:17 | CT Scan Report ---
CT lumbar spine w con CLINICAL HISTORY: For better assessment of findings on lumbar XR COMPARISON STUDY: Lumbar spine radiographs January 16, 2025. CT of the abdomen and pelvis January 07, 2014. TECHNIQUE: Axial images of the lumbar spine were obtained following intravenous injection of Optiray 320 IV. Sagittal and coronal reformats were viewed. Automated exposure control was utilized for the s tudy. A dose lowering technique was utilized adhering to the principles of ALARA. FINDINGS: For purposes of numbering on this exam, the L5-S1 disc space is assigned to axial image 351 of 401. There is mild lumbar spine levoscoliosis. No lumbar spine fractures are present. Vertebral b mustapha heights within the lumbar spine are preserved. There is severe multilevel facet arthrosis. There is mild to moderate multilevel degenerative disc disease. The central canal and neural foramen are marcos boptimally assessed given CT technique. There is a compression fracture of the superior endplate of T 12. There is no retropulsion. There is 20% loss of vertebral body height. No additional fractures are identified on this examination. 3 cm right adrenal nodule was present on CT of January 07, 2014. Th is is likely benign. Sigmoid diverticulitis with associated inflammation is better depicted on the ab dominal CT which will be reported separately. IMPRESSION: 1. Acute to subacute mild compression fracture of the superior plate of T12 with 20% loss of vertebra l body height. No retropulsion. 2. No lumbar spine fractures. 3. Moderate multilevel degenerative changes within lumbar spine. Suboptimal evaluation of the central canal and neural foramen given CT technique. ACT 112: Negative or not required by law. Electronically signed by: Carlos Lind M.D. 01/17/2025 1:15 PM
[2025-01-17 13:19] LABS: ANTI-Xa, UFH(UnfractionatedHep 0.18 IU/ml (0.3-0.7)
--- NOTE | 2025-01-17 14:05 | Cardiology Consultation ---
Date of Consultation January 17, 2025 Assessment & Plan (1) Acute diverticulitis: (2) Acute renal failure: (3) Elevated troponin: (4) Right bundle branch block: (5) Fall: Plan Assessment: 79 year old female presents with several days of nausea and vomiting believed to be attributed to an acute viral illness, and also recent fall. Lab work demonstrates elevated troponin in the absence of any acute cardiac symptoms. Cardiology has been asked to assess and make recommendations. Plan: 1. nausea and vomiting 2. acute diverticulitis 3. Acute renal failure 4. Elevated troponin 5. Right BBB 6. Fall -Patient offers no acute cardiac complaints. EKG demonstrates SR with no acute ST-T wave changes. There is notation of a right BBB which is "new"; however, the only EKG for comparison dates back to 2010. -CT imaging suggest acute diverticulitis. Elevated Procalcitonin levels. Blood cultures pending. -LENO on admission, improving with gentle hydration. -Patient sustained a ground level fell landing on his buttocks and is unsure how long it took to get off the floor. -Ok to continue heparin gtt at this time. Troponin has peaked and now trending down. We will obtain echocardiogram to assess overall structure and function -Continue to monitor on telemetry. -Continued management of acute diverticulitis per primary team. Case has been discussed with Dr. Jasso. Further recommendations regarding plan of care as per his assessment. I spent a total of 40 minutes on the date of service in preparation, delivery, documentation of the care provided to the patient excluding any time spent in the performance of separately billed services. ROBB Saleem [facility] Supervising Physician Co-Signing Physician Notes Attending attestation: Case reviewed with the advanced practitioner. I have personally performed a history and physical examination on the patient. I have reviewed the advanced practitioner's documentation on the date of service referenced in note, and I agree with, and take responsibility for the plan of care. Subjective: Patient presented with nauseousness. Denies recent chest discomfort or shortness of breath. Very comfortable now without any cardiac symptoms. Telemetry reveals sinus rhythm in the 60s to 70s with occasional PACs. Exam: Cardiovascular: Regular rhythm, no murmurs, no edema Data: EKG performed x 2 on 01/16/2025 revealed sinus rhythm with right bundle branch block. No significant repolarization abnormalities. Impression/ Plan: Type II NSTEMI in the setting of acute diverticulitis. -Echocardiogram reassuring with no regional wall motion abnormalities. -Patient n.p.o. -Continue unfractionated heparin with caution -Repeat EKG tomorrow. I spent a total of 20 minutes coordinating, documenting, and providing care for this patient excluding time spent in the performance of separately billed services or time spent by another provider. Tremaine Jasso DO History of Present Illness Reason for Consultation: Elevated Troponin Requesting Physician: Lico reading hospitaltialist Attending Physician: Esperanza Benjamin MD History of Present Illness HPI: Patient is a 79 year old female with history of HTN, dyslipidemia, DM type II, and CKD stage III that presented to the ER with complaints of vomiting. Patient states that she had been sick with the flu while started lasat , she couldn't hardly drink without vomiting, was experiencing diarrhea as well. She started to feel a little better by , but then sustained a fall on 01/15/25 when she attempted to get up off a kitchen stool carrying a pot of potatoes in water, felt dizzy and fell onto her buttocks. She isn't sure if she struck her head but "assumes so as she laid down onto her back due to the pain", but denies any LOC. Patient states she was on the floor for "a little while", but unsure how long. Her spouse was there the entire time attempting to help her up. Denies any fevers or chills. EKG on arrival NSR with Right BBB rate 73bpm chest xray: negative for acute process KUB: negative CT ABD/Pelvis: IMPRESSION: Extensive inflammatory change and prominent wall thickening and edema along the length of the sigmoid colon, associated with numerous diverticula, and evidence of diverticulitis. A small, contained perforation appears to be seen about the posterior aspect of the proximal sigmoid:, Concerning for developing abscess. No armando peritoneal free air. CTA Chest: Negative for PE Lumbar spine xray: compression fracture T12 CT Lumbar spine: IMPRESSION: 1. Acute to subacute mild compression fracture of the superior plate of T12 with 20% loss of vertebral body height. No retropulsion. 2. No lumbar spine fractures. 3. Moderate multilevel degenerative changes within lumbar spine. Suboptimal evaluation of the central canal and neural foramen given CT technique. Head CT: IMPRESSION: 1. No acute intracranial finding. 2. There is fluid in the left maxillary sinus. This could relate to sinusitis or nonvisualized maxillary fracture. 3. Large right mastoid effusion. High sensitivity troponin 2541.05/3049..04/2459.5 Cr on admission 2.03 -now trending down 1.19 (LENO) Procalcitonin significant elevation 47.50 Blood and urine cultures are pending Cardiology has been asked to evaluate patient due to elevated troponin levels. Patient denies any chest pain, pressure, palpitations, no anginal symptoms, no dyspnea or [place]. Review of telemetry demonstrates SR rates 60-80's no acute events. Allergies Allergy/AdvReac Type Severity Reaction Status Date / Time No Known Allergies Allergy Unverified 03/23/18 11:11 Home Medications Medication Instructions Recorded Confirmed Type Lisinopril (Zestril) 10 mg PO UD ##0 11/18/17 01/16/25 History metformin 1,000 mg tablet 1,000 mg PO BID ##0 11/18/17 01/16/25 History simvastatin 20 mg tablet 20 mg PO DAILY ##0 11/18/17 01/16/25 History GLIPIZIDE (GLIPIZIDE ER) 2.5 mg PO UD ##0 03/23/18 01/16/25 History calcitonin (salmon) 200 1 spray intranasal DIRECTED 01/16/25 01/16/25 History unit/actuation nasal spray empagliflozin 10 mg tablet 10 mg PO DAILY 01/16/25 01/16/25 History (Jardiance) irbesartan 150 mg tablet 150 mg PO HS 01/16/25 01/16/25 History oxycodone-acetaminophen 5 mg-325 1 tab PO Q6H PRN Pain 01/16/25 01/16/25 History mg tablet Patient History Social History Smoking Status: Never smoker Second Hand Exposure: No; Do You Dip or Chew Tobacco: No; Hx Alcohol Use: No Hx Substance Use: No Preferred Language: Lao Communication Ability: Effective 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 Beliefs That Will Affect Care: None Current Living Situation: Spouse Feels Safe at Home: Yes Assistive Devices: None Review of Systems Review of Systems: All systems reviewed & are unremarkable except as noted in HPI & below Physical Exam Constitutional: + ill appearing and + frail appearing; n o acute distress ENMT: Ears: + hearing impairment Neck: normal visual inspection and trachea midline Respiratory: normal respiratory effort, lungs clear to auscultation Auscultation: + diminished lung sounds (bilateral bases ) Cardiovascular: RRR, no murmur, no edema Vessels: dorsalis pedis pulses present; no JVD Skin: no rashes, warm and dry Psychiatric: A+Ox3, euthymic affect Results & Data Vital Signs (Past 12 Hours) Vital Signs Temp Pulse Pulse Resp BP Pulse Ox O2 Del Method 01/17/25 11:30 36.7 C 69 18 140/70 98 Room Air 01/17/25 11:00 Room Air 01/17/25 09:40 76 01/17/25 09:25 36.8 C 79 19 136/77 98 Room Air 01/17/25 09:00 Room Air 01/17/25 07:19 72 22 158/68 H 95 Room Air 01/17/25 07:05 75 01/17/25 06:22 66 18 97 Room Air 01/17/25 02:58 69 20 139/69 98 Nasal Cannula O2 Flow Rate 01/17/25 11:30 01/17/25 11:00 01/17/25 09:40 01/17/25 09:25 01/17/25 09:00 01/17/25 07:19 01/17/25 07:05 01/17/25 06:22 01/17/25 02:58 2 Laboratory Results Cardiac Enzymes 01/16/25 01/16/25 01/17/25 Range/Units 17:39 22:52 12:41 Troponin I High Sens 3049.0 H* 3376.5 H* 2459.5 H* D (0-14) pg/ml CBC 01/17/25 Range/Units 07:55 WBC 7.25 (4.8-10.8) K/ul RBC 4.61 (4.20-5.40) M/uL Hgb 13.2 (12.0-16.0) g/dl Hct 39.9 (37.0-47.0) % Plt Count 338 (130-400) K/uL Neut # (Auto) 5.77 (1.40-6.50) K/uL Lymph # (Auto) 0.62 L (1.20-3.40) K/uL [place] # (Auto) 0.76 H (0.11-0.59) K/uL Eos # (Auto) 0.03 (0.00-0.50) K/uL Baso # (Auto) 0.03 (0.00-0.20) K/uL Comprehensive Metabolic Panel 01/17/25 Range/Units 07:55 Sodium 138 (136-145) mmol/L Potassium 3.7 (3.5-5.1) mmol/L Chloride 104 (98-107) mmol/L Carbon Dioxide 24 (21-32) mmol/L BUN 26 H (6-23) mg/dl Creatinine 1.19 D (0.6-1.2) mg/dl Glucose 129 H (70-99(Fasting)) mg/dl Calcium 8.3 L (8.6-10.3) mg/dl Intake and Output 01/16/25 01/17/25 01/17/25 22:59 06:59 14:59 Intake Total 100 / 2201.167 1101.167 / 2201.167 288.033 / 288.033 Output Total 0 / 0 Balance 100 / 2201.167 1101.167 / 2201.167 288.033 / 288.033 Intake: IV 100 / 2201.167 1101.167 / 2201.167 288.033 / 288.033 Heparin 06159 Unit/500 ml D5w 1.167 / 1.167 188.033 / 188.033 25,000 units In 500 ml @ 700 UNITS/HR 14 mls/hr IV .Q24H SAMANTHA Rx#:[id number] Piperacillin/Tazobactam 4.5 gm 100 / 200 100 / 200 100 / 100 In 100 ml @ 25 mls/hr IV Q8H SAMANTHA Rx#:[id number] Sodium Chloride 0.9% 1,000 ml @ 1000 / 1000 125 mls/hr IV .Q8H SAMANTHA Rx#: [id number] Output: # Bowel Movements 0 / 0 Other: # Unmeasured Voids 1 1 Weight 66.4 kg 62.55 kg Weight Measurement Method [facility] Patient Weight 01/18/25 06:59 Weight 62.55 kg (2) Acute renal failure Acute renal failure type: unspecified Qualified Code(s): N17.9 - Acute kidney failure, unspecified
[2025-01-17] MEDS: HEPARIN SOD (PORCINE) 1000 UNIT/ML IV ONE (14:31)
[2025-01-17] MEDS ORDERED: PIPERACILLIN/TAZOBACTAM 4.5 GM/100 ML BAG IV SCH (21:00)
[2025-01-17 23:14] LABS: ANTI-Xa, UFH(UnfractionatedHep 0.31 IU/ml (0.3-0.7)
[2025-01-18 07:13] LABS: ANTI-Xa, UFH(UnfractionatedHep 0.43 IU/ml (0.3-0.7)
[2025-01-18 07:14] LABS: Hematocrit (blood only) 38.7 % (37.0-47.0); Hemoglobin 12.7 g/dl (12.0-16.0); Mean Corpuscular Hemoglobin 27.9 pg (25.0-34.0); Mean Corpuscular Hgb Conc 32.8 g/dL (32.0-36.0); Mean Corpuscular Volume 85.1 fL (80.0-100.0); Mean Platelet Volume 9.1 fL (9.4-12.4); Platelet Count 299 K/uL (130-400); RDW Standard Deviation 46.5 fL (36.4-46.3); Red Blood Count 4.55 M/uL (4.20-5.40); White Blood Count 5.62 K/ul (4.8-10.8)
[2025-01-18 07:34] LABS: BUN Creatinine Ratio 18.7 (10-20); Calcium 8.2 mg/dl (8.6-10.3); Creatinine Clr Calc Pharmacy 52.5 ml/min; Potassium 3.3 mmol/L (3.5-5.1)
[2025-01-18] MEDS: POTASSIUM CHLORIDE CRTAB 20 MEQ TABCR PO STA (08:19)
--- NOTE | 2025-01-18 08:54 | Cardiology Progress Note ---
Date of Service January 18, 2025 Assessment & Plan (1) Acute diverticulitis: (2) Acute renal failure: (3) Elevated troponin: (4) Right bundle branch block: (5) Fall: Plan Assessment: 79 year old female presents with several days of nausea and vomiting believed to be attributed to an acute viral illness, and also recent fall. Lab work demonstrates elevated troponin in the absence of any acute cardiac symptoms. Cardiology has been asked to assess and make recommendations. Plan: 1. nausea and vomiting 2. acute diverticulitis 3. Acute renal failure 4. Elevated troponin 5. Right BBB 6. Fall -Patient offers no acute cardiac complaints. EKG demonstrates SR with no acute ST-T wave changes. There is notation of a right BBB which is "new"; however, the only EKG for comparison dates back to 2010. -CT imaging suggest acute diverticulitis. Elevated Procalcitonin levels. Blood cultures pending. -LENO on admission, improving with gentle hydration. -Patient sustained a ground level fell landing on his buttocks and is unsure how long it took to get off the floor. -Ok to continue heparin gtt at this time. Troponin has peaked and now trending down. We will obtain echocardiogram to assess overall structure and function -Continue to monitor on telemetry. -Continued management of acute diverticulitis per primary team. 01/18/2025: -patient continues to offer no cardiac complaints. -Troponin with peak of 3376.5 and trending down. At this time we will continue heparin gtt x 48 hours and continue with conservative management in the setting of her acute infection as well as CT abd/pelvis findings of a small contained perforation in the posterior aspect of the proximal sigmoid, and concern for abscess. -Review of telemetry shows a single episode of SVT this morning in which patient remained asymptomatic. will discuss with Dr. Jasso as patient may benefit from the addition of low dose beta arely at some point; however, current blood pressures remain soft. -Continue to monitor on telemetry -Renal function continues to improve -Continued management of acute diverticulitis per primary team. Case has been discussed with Dr. Jasso. Further recommendations regarding plan of care as per his assessment. I spent a total of 30 minutes on the date of service in preparation, delivery, documentation of the care provided to the patient excluding any time spent in the performance of separately billed services. ROBB Saleem [facility] Cardiology [facility] Admission and Anticipated Discharge Date Admission Date: January 16, 2025 Supervising Physician Co-Signing Physician Notes Attending attestation: Case reviewed with the advanced practitioner. I have personally performed a history and physical examination on the patient. I have reviewed the advanced practitioner's documentation on the date of service referenced in note, and I agree with, and take responsibility for the plan of care. Denies abdominal pain. Denies chest discomfort or shortness of breath. Brief run of SVT observed earlier this morning without associated symptoms. Tolerated liquids this morning. Plan: Supplement potassium Continue IV unfractionated heparin to complete 48-hour course Start aspirin 81 mg daily, metoprolol succinate 12.5 mg daily, atorvastatin 20 mg daily. Atorvastatin replaces prior to hospital treatment with simvastatin. I spent a total of 20 minutes coordinating, documenting, and providing care for this patient excluding time spent in the performance of separately billed services or time spent by another provider. Tremaine Jasso DO Subjective 01/18/2025: Patient seen and examined in follow up today. Feeling well. Offers no cardiac complaints. Offers no complaints of abdominal pain, tolerated clear liquids this morning. Labs, vitals, diagnostics, telemetry and documentation reviewed. Telemetry reviewed showing SR. There was a run of SVT noted at 0930. patient had remains asymptomatic. K 3.3, supplementation was ordered by primary team Review of Systems Review of Systems: All systems reviewed & are unremarkable except as noted in HPI & below Physical Exam Constitutional: + ill appearing and + frail appearing; n o acute distress ENMT: Ears: + hearing impairment Neck: normal visual inspection and trachea midline Respiratory: normal respiratory effort, lungs clear to auscultation A uscultation: + diminished lung sounds (bilateral bases ) Cardiovascular: RRR, no murmur, no edema Vessels: dorsalis pedis pulses pr esent; no JVD Skin: no rashes, warm and dry Psychiatric: A+Ox3, euthymic affect Results & Data Vital Signs (Past 12 Hours) Vital Signs Temp Pulse Pulse Resp BP Pulse Ox O2 Del Method 01/18/25 07:56 36.8 C 78 18 118/73 96 Room Air 01/18/25 07:43 Room Air 01/18/25 03:18 36.6 C 64 19 112/68 95 Room Air 01/17/25 23:09 36.9 C 66 16 108/68 93 Room Air 01/17/25 22:59 71 Laboratory Results Cardiac Enzymes 01/17/25 Range/Units 12:41 Troponin I High Sens 2459.5 H* D (0-14) pg/ml CBC 01/18/25 Range/Units 06:20 WBC 5.62 (4.8-10.8) K/ul RBC 4.55 (4.20-5.40) M/uL Hgb 12.7 (12.0-16.0) g/dl Hct 38.7 (37.0-47.0) % Plt Count 299 (130-400) K/uL Comprehensive Metabolic Panel 01/18/25 Range/Units 06:20 Sodium 138 (136-145) mmol/L Potassium 3.3 L (3.5-5.1) mmol/L Chloride 101 (98-107) mmol/L Carbon Dioxide 27 (21-32) mmol/L BUN 14 (6-23) mg/dl Creatinine 0.75 D (0.6-1.2) mg/dl Glucose 116 H (70-99(Fasting)) mg/dl Calcium 8.2 L (8.6-10.3) mg/dl Intake and Output 01/17/25 01/18/25 01/18/25 22:59 06:59 14:59 Intake Total 1292.333 / 1752.899 172.533 / 1752.899 361.767 / 361.767 Balance 1292.333 / 1752.899 172.533 / 1752.899 361.767 / 361.767 Intake: IV 1172.333 / 1632.899 172.533 / 1632.899 361.767 / 361.767 Acetaminophen 1,000 mg In 100 100 / 100 ml @ 400 mls/hr IV Q12H PRN Rx# :[id number] Heparin 77733 Unit/500 ml D5w 76.5 / 337.066 72.533 / 337.066 161.767 / 161.767 25,000 units In 500 ml @ 850 UNITS/HR 17 mls/hr IV .Q24H SAMANTHA Rx#:[id number] Piperacillin/Tazobactam 4.5 gm 100 / 300 100 / 300 100 / 100 In 100 ml @ 25 mls/hr IV Q8H SAMANTHA Rx#:[id number] Sodium Chloride 0.9% 1,000 ml @ 995.833 / 995.833 125 mls/hr IV .Q8H SAMANTHA Rx#: [id number] Oral 120 / 120 Other: # Unmeasured Voids 1 1 1 Weight 64 kg Weight Measurement Method Built in [facility] Diagnostic Findings Echocardiogram 01/17/2025 Mild concentric LVH LV systolic function is normal LVEF 55-60% RV normal size and function Grade I diastolic dysfunction Mild aortic valve sclerosis without stenosis (2) Acute renal failure Acute renal failure type: unspecified Qualified Code(s): N17.9 - Acute kidney failure, unspecified
--- NOTE | 2025-01-18 09:52 | Hospitalist Progress Note ---
Date of Service January 18, 2025 Assessment & Plan (1) Acute diverticulitis: Plan: 79-year-old female with history of diabetes type 2, hypertension, dyslipidemia, CKD stage III presenting with vomiting. She reported she has been having occasional nausea and vomiting but got severe on day of admission Acute diverticulitis, possible abscess CT abdomen pelvis noted sigmoid diverticulitis with concern for developing abscess. No armando peritoneal free air. Gen surg evaluated and noted no defined abscess or free perforation Antibiotics deescalated to ciprofloxacin and flagyl Advance diet as tolerated NSTEMI type II Patient's trop was elevated 2541 ->>3376->2459 TTE showed mild conc LVH, EF 55-60%, normal RV size and function, G I DD, mild AV sclerosis Card recs noted Will continue hep gtt to complete 48h Acute kidney injury, on CKD stage III Likely prerenal etiology secondary to dehydration Baseline 0.8, Cr was 2.0 on admission LENO resolved Replete hypokalemia Back pain, left hip pain, rule out fracture Recent fall, January 06, 2025 Vitamin D deficiency Fell after getting up from kitchen chair, felt dizzy, landed on her buttocks Lumbar CT showing acute to subacute compression fracture of superior plate of T12 with 20% loss of vertebrate height. Follow up Ortho spine consult Vit D level 12.3. Started on Vit D [id number] weekly PT/OT Diabetes type 2 Hold Jardiance, metformin Insulin sliding scale Hypertension Home irbesartan on hold on admission due to LENO BP stable. Plan to resume DVT prophylaxis On hep gtt CODE STATUS Full code as per patient I spent a total of 50 minutes coordinating, documenting and providing care for this patient excluding time spent in performance of separately billed services Admission and Anticipated Discharge Date Admission Date: January 16, 2025 Subjective Patient seen and examined Denied any abd pain, nausea, vomiting today Denied chest pain, cough or SOB Reports low back pain Denied any other complaints on ROS Physical Exam Constitutional: + well hydrated; no acute distress Eyes: PERRL, conjunctivae normal, anicteric sclerae ENMT: external ear and nose normal, oropharynx normal Respiratory: normal respiratory effort, lungs clear to auscultation Cardiovascular: Rate/Rhythm: regular rate and regular rhythm Gastrointestinal (Abdomen): normal bowel sounds, soft, nontender, no hepatosplenomegaly Musculoskeletal: No pedal edema Neurologic: PERRL, EOMI, accommodation nl, no face palsy, no dysarthria Psychiatric: A+Ox3, euthymic affect Results & Data Results & Data Vital Signs (Past 12 Hours) Vital Signs Temp Pulse Pulse Resp BP Pulse Ox O2 Del Method 01/18/25 07:56 36.8 C 78 18 118/73 96 Room Air 01/18/25 07:43 Room Air 01/18/25 07:00 64 01/18/25 03:18 36.6 C 64 19 112/68 95 Room Air 01/17/25 23:09 36.9 C 66 16 108/68 93 Room Air 01/17/25 22:59 71 Laboratory Results Abnormal lab results 01/17/25 01/17/25 01/17/25 Range/Units 12:41 12:54 13:35 RDW Std Deviation (36.4-46.3) fL RDW Coeff of Joan (11.5-14.5) % MPV (9.4-12.4) fL Heparin Anti-Xa, Unfract 0.18 L (0.3-0.7) IU/ml Potassium (3.5-5.1) mmol/L Glucose (70-99(Fasting)) mg/dl POC Glucose 113 H (70-99) mg/dl Calcium (8.6-10.3) mg/dl Troponin I High Sens 2459.5 H* D (0-14) pg/ml 25-OH Vitamin D Total (30-100) ng/ml 01/17/25 01/18/25 01/18/25 Range/Units 20:06 06:20 07:22 RDW Std Deviation 46.5 H (36.4-46.3) fL RDW Coeff of Joan 15.0 H (11.5-14.5) % MPV 9.1 L (9.4-12.4) fL Heparin Anti-Xa, Unfract (0.3-0.7) IU/ml Potassium 3.3 L (3.5-5.1) mmol/L Glucose 116 H (70-99(Fasting)) mg/dl POC Glucose 117 H 124 H (70-99) mg/dl Calcium 8.2 L (8.6-10.3) mg/dl Troponin I High Sens (0-14) pg/ml 25-OH Vitamin D Total 12.3 L (30-100) ng/ml
[2025-01-18] MEDS: ERGOCALCIFEROL 1250 MCG (50,000 UNITS) CAP PO SCH (10:04)
[2025-01-18] MEDS: ACETAMINOPHEN 1,000 MG/100 ML VIAL IV PRN (10:10)
[2025-01-18] MEDS: metroNIDAZOLE 500 MG/100 ML BAG IV SCH (11:16)
[2025-01-18] MEDS: CIPROFLOXACIN / D5W 400 MG/200 ML BAG IV SCH (11:16)
--- NOTE | 2025-01-18 12:26 | Orthopedic Consultation ---
Date of Service January 18, 2025 History of Present Illness Reason for Consultation: T12 compression fracture Requesting Physician: . Attending Physician: Esperanza Benjamin MD 79-year-old female with history of diabetes type 2, hypertension, dyslipidemia, CKD stage III presenting with vomiting. She reported she has been having occasional nausea and vomiting but got severe on day of admission on January 16. The patient reports that she had a slight fall in the kitchen on January 06, noting some limited low back pain since then but not to a significant degree. She denies any lower extremity symptomatology just pain more in the lower mid lumbar spine. Exam reveals her to indicate pain more in the lumbosacral junction, she is nontender to palpation at the thoracolumbar area. She has intact strength in the lower extremities. CT lumbar spine w con January 17, 2025 CLINICAL HISTORY: For better assessment of findings on lumbar XR COMPARISON STUDY: Lumbar spine radiographs January 16, 2025. CT of the abdomen and pelvis January 07, 2014. TECHNIQUE: Axial images of the lumbar spine were obtained following intravenous injection of Optiray 320 IV. Sagittal and coronal reformats were viewed. Automated exposure control was utilized for the study. A dose lowering technique was utilized adhering to the principles of ALARA. FINDINGS: For purposes of numbering on this exam, the L5-S1 disc space is assigned to axial image 351 of 401. There is mild lumbar spine levoscoliosis. No lumbar spine fractures are present. Vertebral body heights within the lumbar spine are preserved. There is severe multilevel facet arthrosis. There is mild to moderate multilevel degenerative disc disease. The central canal and neural foramen are suboptimally assessed given CT technique. There is a compression fracture of the superior endplate of T12. There is no retropulsion. There is 20% loss of vertebral body height. No additional fractures are identified on this examination. 3 cm right adrenal nodule was present on CT of January 07, 2014. This is likely benign. Sigmoid diverticulitis with associated inflammation is better depicted on the abdominal CT which will be reported separately. IMPRESSION: 1. Acute to subacute mild compression fracture of the superior plate of T12 with 20% loss of vertebral body height. No retropulsion. 2. No lumbar spine fractures. 3. Moderate multilevel degenerative changes within lumbar spine. Suboptimal evaluation of the central canal and neural foramen given CT technique. Review of CT scan images of the lumbar spine January 17, 2025, this my separate interpretation, this reveals the patient to have subtle superior endplate compression fracture of T12 indeterminate as to age, additional degenerative changes throughout the lumbar spine. Impression: Acute potentially subacute T12 compression fracture with the patient indicating symptomatology more in the lumbosacral junction, multilevel deg enerative changes. Plan: Currently the patient has very limited symptoms in the lower lumbar spine, there is minimal if any significant change in the superior endplate of T12. Recommend continued ambulation with physical therapy, avoid bending lifting twisting, the patient expressed that she has a brace at home and certainly a family member could bring this to the hospital for her to wear for comfort, and follow-up next week in the office for radiographs. Allergies Allergy/AdvReac Type Severity Reaction Status Date / Time No Known Allergies Allergy Unverified 03/23/18 11:11 Home Medications Medication Instructions Recorded Confirmed Type metformin 1,000 mg tablet 1,000 mg PO BID ##0 11/18/17 01/16/25 History simvastatin 20 mg tablet 20 mg PO DAILY ##0 11/18/17 01/16/25 History calcitonin (salmon) 200 1 spray intranasal DIRECTED 01/16/25 01/16/25 History unit/actuation nasal spray empagliflozin 10 mg tablet 10 mg PO DAILY 01/16/25 01/16/25 History (Jardiance) irbesartan 150 mg tablet 150 mg PO HS 01/16/25 01/16/25 History oxycodone-acetaminophen 5 mg-325 1 tab PO Q6H PRN Pain 01/16/25 01/16/25 History mg tablet Past Med/Surg History Problem List (Updated 01/17/25 @ 14:59 by ROBB Saleem) Fall Right bundle branch block (Acute) Elevated troponin (Acute) Acute renal failure (Acute) DM (diabetes mellitus) (Chronic) Acute diverticulitis (Acute) Abdominal pain (Acute) History of cancer Headache Altered mental status Social History Smoking Status: Never smoker Second Hand Exposure: No; Do You Dip or Chew Tobacco: No; Hx Alcohol Use: No Hx Substance Use: No Preferred Language: Vincentian Communication Ability: Effective [employer] Required: No Beliefs That Will Affect Care: None Current Living Situation: Spouse Feels Safe at Home: Yes Assistive Devices: None Review of Systems All systems reviewed & are unremarkable except as noted in HPI & below. Physical Exam . Results & Data Results & Data Laboratory Results . Diagnostic Findings . PG Care Time/CCT Total # of Minutes Spent Total Time Spent with Patient: Total time spent is greater than 50% in coordination of care (as documented) at patient's floor/unit and/or counseling patient: Coding Level of Care Code 91413 IN/OBS CONSULT LVL 3,45M
--- NOTE | 2025-01-18 13:02 | Surgery Progress Note ---
<Statement entered by Oswaldo Thurman DO - 01/19/25 08:20> I have seen and examined this patient with the surgical PA. Agree to continue to advance as tolerated to low fiber. Colonoscopy outpatient after 8 weeks if she has not had one in the past year. Date of Service January 18, 2025 Assessment & Plan (1) Acute diverticulitis: Plan: pt w/ diverticulitis with concern for small contained perforation with 1.7cm abscess wbc 5.6. vitals stable and patient afebrile abdomen soft, non tender. she denies any pain on full liquids today. would continue IV abx while in house may consider slow diet advancement to low fiber which she should continue for 6- 8 weeks. upon dispo will need sent home on course of 10-14days abx orally cardiology following for elevated troponin, currently on heparin gtt Admission and Anticipated Discharge Date Admission Date: January 16, 2025 Subjective Patient reports feeling fine. Feels well enough she says she wants to go home, but understands she is undergoing evaluation for GI and cardiac reasons. Physical Exam Physical Exam: awake, no distress Gastrointestinal (Abdomen): Percussion/Palpation: abdomen soft; abdomen nontender Results & Data Vital Signs (Past 12 Hours) Vital Signs Temp Pulse Pulse Resp BP Pulse Ox O2 Del Method 01/18/25 11:00 98.1 F 77 16 100/67 97 Room Air 01/18/25 07:56 98.2 F 78 18 118/73 96 Room Air 01/18/25 07:43 Room Air 01/18/25 07:00 64 01/18/25 03:18 97.9 F 64 19 112/68 95 Room Air PG Care Time/CCT Total # of Minutes Spent Total Time Spent with Patient: Total time spent is greater than 50% in coordination of care (as documented) at patient's floor/unit and/or counseling patient: Coding Level of Care Code 11768 SUB INP/OBS CARE 12/26MIN Diagnoses Acute diverticulitis K57.92
--- NOTE | 2025-01-18 13:08 | Electrocardiogram Report ---
Test Reason : Blood Pressure : */* mmHG Vent. Rate : 64 BPM Atrial Rate : 64 BPM P-R Int : 176 ms QRS Dur : 146 ms QT Int : 450 ms P-R-T Axes : 57 60 77 degrees QTcB Int : 464 ms Normal sinus rhythm Right bundle branch block Abnormal ECG When compared with ECG of 16-Jan-2025 20:09, No significant change was found Confirmed by Jitendra Disla ([id number]) on 01/18/2025 1:07:46 PM Referred By: REFERRED SELF Confirmed By: Jitendra Disla
[2025-01-18] MEDS: METOPROLOL SUCC 25MG EXT REL TAB PO SCH (13:41)
[2025-01-18] MEDS: ATORVASTATIN 20 MG TAB PO SCH (13:41)
[2025-01-19 06:39] LABS: Hematocrit (blood only) 36.7 % (37.0-47.0); Hemoglobin 12.3 g/dl (12.0-16.0); Mean Corpuscular Hemoglobin 28.5 pg (25.0-34.0); Mean Corpuscular Hgb Conc 33.5 g/dL (32.0-36.0); Mean Platelet Volume 9.3 fL (9.4-12.4); Platelet Count 279 K/uL (130-400); RDW Coefficient of Variation 14.9 % (11.5-14.5); RDW Standard Deviation 45.8 fL (36.4-46.3); Red Blood Count 4.32 M/uL (4.20-5.40); White Blood Count 5.67 K/ul (4.8-10.8)
[2025-01-19 07:08] LABS: BUN Creatinine Ratio 16.7 (10-20); Calcium 8.1 mg/dl (8.6-10.3); Creatinine Clr Calc Pharmacy 65.7 ml/min; Magnesium 1.5 mg/dl (1.7-2.4); Potassium 3.5 mmol/L (3.5-5.1)
[2025-01-19] MEDS ORDERED: PROMETHAZINE 12.5 MG/50.5 ML BAG IV PRN (08:15)
--- NOTE | 2025-01-19 08:32 | Cardiology Progress Note ---
Date of Service January 19, 2025 Assessment & Plan (1) Acute diverticulitis: (2) Acute renal failure: (3) Elevated troponin: (4) Right bundle branch block: (5) Fall: Plan Assessment: 79 year old female presents with several days of nausea and vomiting believed to be attributed to an acute viral illness, and also recent fall. Lab work demonstrates elevated troponin in the absence of any acute cardiac symptoms. Cardiology has been asked to assess and make recommendations. Plan: 1. nausea and vomiting 2. acute diverticulitis 3. Acute renal failure 4. Elevated troponin 5. Right BBB 6. Fall -Patient offers no acute cardiac complaints. EKG demonstrates SR with no acute ST-T wave changes. There is notation of a right BBB which is "new"; however, the only EKG for comparison dates back to 2010. -CT imaging suggest acute diverticulitis. Elevated Procalcitonin levels. Blood cultures pending. -LENO on admission, improving with gentle hydration. -Patient sustained a ground level fell landing on his buttocks and is unsure how long it took to get off the floor. -Ok to continue heparin gtt at this time. Troponin has peaked and now trending down. We will obtain echocardiogram to assess overall structure and function -Continue to monitor on telemetry. -Continued management of acute diverticulitis per primary team. 01/18/2025: -patient continues to offer no cardiac complaints. -Troponin with peak of 3376.5 and trending down. At this time we will continue heparin gtt x 48 hours and continue with conservative management in the setting of her acute infection as well as CT abd/pelvis findings of a small contained perforation in the posterior aspect of the proximal sigmoid, and concern for abscess. -Review of telemetry shows a single episode of SVT this morning in which patient remained asymptomatic. will discuss with Dr. Jasso as patient may benefit from the addition of low dose beta arely at some point; however, current blood pressures remain soft. -Continue to monitor on telemetry -Renal function continues to improve -Continued management of acute diverticulitis per primary team. 01/19/2025: -patient continues to offer no cardiac complaints. -Heparin gtt has been discontinued. Continue with conservative management in the setting of an acute infection as well as CT abd/pelvis findings of a small contained perforation in the posterior aspect of the proximal sigmoid, and concern for abscess. -Discussed follow up outpatient with cardiology and plan for a nuclear stress test -Echocardiogram reviewed. Demonstrates mild concentric LVH, normal LVEF 55-60%, normal wall motion, grade I diastolic dysfunction. Mild aortic valve sclerosis without stenosis. -Continue with conservative management. No acute events on telemetry overnight. Continue Toprol xl, ASA 81mg, Atorvastatin -Continue with Magnesium supplementation -Continue to monitor on telemetry during course of hospitalization. -Please reach out with any new cardiac questions or concerns. Case has been discussed with Dr. Hu. Further recommendations regarding plan of care as per his assessment. I spent a total of 30 minutes on the date of service in preparation, delivery, documentation of the care provided to the patient excluding any time spent in the performance of separately billed services. ROBB Saleem [facility] Admission and Anticipated Discharge Date Admission Date: January 16, 2025 Supervising Physician Co-Signing Physician Notes I have personally performed a history and physical examination on the patient. I have reviewed the advanced practitioner's documentation on the date of service referenced in note, and I agree with, and take responsibility for the plan of care. Patient feeling well from a cardiovascular perspective. Requesting discharge. Telemetry reveals sinus rhythm. No chest discomfort or heaviness. She has completed 48-hour course of unfractionated heparin. Recommend continue low-dose aspirin, Toprol-XL, and atorvastatin. (Atorvastatin replacing simvastatin during hospitalization). No further inpatient cardiac testing or intervention recommended at this time. Cardiology will sign off. Please call with additional concerns/questions. Alexander Hu DO, [facility] I spent a total of 25 minutes on the date of service in preparation, delivery, and documentation of the care provided to this patient, excluding any time spent in the performance of separately billed services. Subjective 01/19/2025: Patient seen and examined in follow up today. Feeling well from a cardiac perspective. No chest pain or pressure, no shortness of breath, near syncope/syncope or edema. She states that she attempted to advance her diet this morning, but had abdominal pain. Labs, vitals, diagnostics, telemetry and documentation reviewed. Telemetry reviewed showing SB/SR rates 50-60's. No acute events overnight. Serum Mag 1.5, currently receiving IV supplementation. Review of Systems Review of Systems: All systems reviewed & are unremarkable except as noted in HPI & below Physical Exam Constitutional: + frail appearing; no acute distress ENMT: Ears: + hearing impairment Neck: normal visual inspection and trachea midline Respiratory: normal respiratory effort, lungs clear to auscultation Auscultation: + diminished lung sounds (bilateral bases ) Cardiovascular: RRR, no murmur, no edema Vessels: dorsalis pedis pulses present; no JVD Skin: no rashes, warm and dry Psychiatric: A+Ox3, euthymic affect Results & Data Vital Signs (Past 12 Hours) Vital Signs Temp Pulse Pulse Resp BP Pulse Ox O2 Del Method 01/19/25 07:05 36.9 C 62 18 138/82 95 Room Air 01/19/25 03:06 36.7 C 65 18 109/62 91 Room Air 01/18/25 22:57 68 01/18/25 22:39 37.1 C 666 H 18 124/74 93 Room Air 01/18/25 20:57 Room Air Laboratory Results CBC 01/19/25 Range/Units 05:29 WBC 5.67 (4.8-10.8) K/ul RBC 4.32 (4.20-5.40) M/uL Hgb 12.3 (12.0-16.0) g/dl Hct 36.7 L (37.0-47.0) % Plt Count 279 (130-400) K/uL Comprehensive Metabolic Panel 01/19/25 Range/Units 05:29 Sodium 138 (136-145) mmol/L Potassium 3.5 (3.5-5.1) mmol/L Chloride 103 (98-107) mmol/L Carbon Dioxide 26 (21-32) mmol/L BUN 10 (6-23) mg/dl Creatinine 0.60 (0.6-1.2) mg/dl Glucose 98 (70-99(Fasting)) mg/dl Calcium 8.1 L (8.6-10.3) mg/dl Intake and Output 01/18/25 01/19/25 01/19/25 22:59 06:59 14:59 Intake Total 251.867 / 2494.251 830.617 / 2494.251 100 / 100 Balance 251.867 / 2494.251 830.617 / 2494.251 100 / 100 Intake: IV 251.867 / 1344.251 430.617 / 1344.251 100 / 100 Ciprofloxacin / D5w 400 mg In 200 / 400 200 ml @ 100 mls/hr IV Q12H [facility] Rx#:[id number] Heparin 13127 Unit/500 ml D5w 151.867 / 444.251 130.617 / 444.251 25,000 units In 500 ml @ 850 UNITS/HR 17 mls/hr IV .Q24H [facility] Rx#:[id number] Magnesium Sulfate / D5w 1 gm In 100 / 100 100 ml @ 50 mls/hr IV ONE ONE Rx#:[id number] metroNIDAZOLE 500 mg In 100 ml 100.000 / 300.000 100 / 300.000 @ 100 mls/hr IV Q8H [facility] Rx#: [id number] Oral 400 / 1150 Other: # Unmeasured Voids 1 2 Weight 63.957 kg Weight Measurement Method Built in [facility] (2) Acute renal failure Acute renal failure type: unspecified Qualified Code(s): N17.9 - Acute kidney failure, unspecified
[2025-01-19] MEDS: MAGNESIUM SULFATE / D5W 1 GM/100 ML BAG IV ONE (09:10)
[2025-01-19] MEDS: POT PHOSPHATE MONOBASIC W/ SOD TAB PO SCH (09:12)
[2025-01-19] MEDS: ASPIRIN 81 MG ECTAB PO SCH (09:13)
--- NOTE | 2025-01-19 10:43 | Hospitalist Progress Note ---
Date of Service January 19, 2025 Assessment & Plan (1) Acute diverticulitis: Plan: 79-year-old female with history of diabetes type 2, hypertension, dyslipidemia, CKD stage III presenting with vomiting. She reported she has been having occasional nausea and vomiting but got severe on day of admission Acute diverticulitis, possible abscess CT abdomen pelvis noted sigmoid diverticulitis with concern for developing abscess. No armando peritoneal free air. Gen surg evaluated and noted no defined abscess or free perforation Continue ciprofloxacin and flagyl Tolerating diet Antiemetic prn NSTEMI type II Patient's trop was elevated 2541 ->>3376->2459 TTE showed mild conc LVH, EF 55-60%, normal RV size and function, G I DD, mild AV sclerosis Card recs noted Completed 48h of heparin drip Started on ASA 81mg, metoprolol succinate 12.5mg daily and her home simvastatin changed to atorvastatin 20mg daily per Cards Acute kidney injury, on CKD stage III Likely prerenal etiology secondary to dehydration Baseline 0.8, Cr was 2.0 on admission LENO resolved Replete hypomagnesemia and hypophosphatemia Back pain, left hip pain, rule out fracture Recent fall, January 06, 2025 Vitamin D deficiency Fell after getting up from kitchen chair, felt dizzy, landed on her buttocks Lumbar CT showing acute to subacute compression fracture of superior plate of T12 with 20% loss of vertebrate height. Ortho spine recs noted Vit D level 12.3. Started on Vit D [id number] weekly Awaiting PT/OT Diabetes type 2 Hold Jardiance, metformin Insulin sliding scale Hypertension Home irbesartan on hold on admission due to LENO BP stable. Plan to resume on dc DVT prophylaxis: Hep sq CODE STATUS Full code as per patient I spent a total of 50 minutes coordinating, documenting and providing care for this patient excluding time spent in performance of separately billed services Admission and Anticipated Discharge Date Admission Date: January 16, 2025 Subjective Patient seen and examined Reports nausea, vomiting earlier but improved now Had diarrhea episode per RN. No hematochezia Reports low back pain is improved Denied any other complaints Physical Exam Constitutional: + well hydrated; no acute distress Eyes: PERRL, conjunctivae normal, anicteric sclerae ENMT: external ear and nose normal, oropharynx normal Respiratory: normal respiratory effort, lungs clear to auscultation Cardiovascular: Rate/Rhythm: regular rate and regular rhythm Gastrointestinal (Abdomen): normal bowel sounds, soft, nontender, no hepatosplenomegaly Musculoskeletal: No pedal edema Neurologic: PERRL, EOMI, accommodation nl, no face palsy, no dysarthria Psychiatric: A+Ox3, euthymic affect Results & Data Results & Data Vital Signs (Past 12 Hours) Vital Signs Temp Pulse Pulse Resp BP Pulse Ox O2 Del Method 01/19/25 10:30 36.6 C 65 18 134/78 95 Room Air 01/19/25 10:06 62 01/19/25 09:57 Room Air 01/19/25 07:05 36.9 C 62 18 138/82 95 Room Air 01/19/25 03:06 36.7 C 65 18 109/62 91 Room Air 01/18/25 22:57 68 Laboratory Results Abnormal lab results 01/18/25 01/18/25 01/18/25 Range/Units 11:29 15:58 20:07 Hct (37.0-47.0) % RDW Coeff of Joan (11.5-14.5) % MPV (9.4-12.4) fL POC Glucose 118 H 100 H 109 H (70-99) mg/dl Calcium (8.6-10.3) mg/dl Phosphorus (2.5-4.9) mg/dl Magnesium (1.7-2.4) mg/dl 01/19/25 01/19/25 01/19/25 Range/Units 05:29 07:12 11:08 Hct 36.7 L (37.0-47.0) % RDW Coeff of Joan 14.9 H (11.5-14.5) % MPV 9.3 L (9.4-12.4) fL POC Glucose 103 H 128 H (70-99) mg/dl Calcium 8.1 L (8.6-10.3) mg/dl Phosphorus 2.0 L (2.5-4.9) mg/dl Magnesium 1.5 L (1.7-2.4) mg/dl
--- NOTE | 2025-01-19 13:44 | Surgery Progress Note ---
Date of Service January 19, 2025 Assessment & Plan (1) Acute diverticulitis: Plan: Patient still not complaining of abdominal pain. She is nontender on exam and seems to be improving from this perspective. She does still have nausea although this also seems improved. She has been afebrile, with stable vitals and has no leukocytosis. Recommend to try full liquids on her as she states she did not eat any of the solid tray due to feeling sick. Pt states she wants to go home but is not yet able to tolerate any intake with nutritional value. Continue IV abx while in patient. Admission and Anticipated Discharge Date Admission Date: January 16, 2025 Subjective Pt seen and examined this am denies abdominal pain. Admits to occasional nausea with some nausea this am causing her to spit up phlegm. When asked if she has had solid food, she states food was brought this am but she did not eat any because she felt it would make her sick. She states she had diarrhea as well, unable to recall if she has passed gas. Physical Exam Constitutional: no acute distress, not ill appearing, not frail appearing and not diaphoretic Respiratory: normal respiratory effort; no respiratory distress, no labored breathing and does not use accessory muscles Gastrointestinal (Abdomen): Percussion/Palpation: abdomen soft; abdomen nontender and no guarding Psychiatric: Orientation: alert and cooperative Results & Data Vital Signs (Past 12 Hours) Vital Signs Temp Pulse Pulse Resp BP Pulse Ox O2 Del Method 01/19/25 10:30 36.6 C 65 18 134/78 95 Room Air 01/19/25 10:06 62 01/19/25 09:57 Room Air 01/19/25 07:05 36.9 C 62 18 138/82 95 Room Air 01/19/25 03:06 36.7 C 65 18 109/62 91 Room Air Laboratory Results No leukocytosis PG Care Time/CCT Total # of Minutes Spent Total Time Spent with Patient: Total time spent is greater than 50% in coordination of care (as documented) at patient's floor/unit and/or counseling patient: Coding Level of Care Code 76338 SUB INP/OBS CARE 12/26MIN Diagnoses Acute diverticulitis K57.92
[2025-01-19] MEDS: HEPARIN SOD 5,000 UNIT/0.5 ML VIAL SQ SCH (15:16)
[2025-01-20 07:18] LABS: Hematocrit (blood only) 36.9 % (37.0-47.0); Hemoglobin 12.4 g/dl (12.0-16.0); Mean Corpuscular Hemoglobin 28.1 pg (25.0-34.0); Mean Corpuscular Hgb Conc 33.6 g/dL (32.0-36.0); Mean Corpuscular Volume 83.5 fL (80.0-100.0); Mean Platelet Volume 9.1 fL (9.4-12.4); Platelet Count 271 K/uL (130-400); RDW Standard Deviation 45.2 fL (36.4-46.3); Red Blood Count 4.42 M/uL (4.20-5.40); White Blood Count 5.53 K/ul (4.8-10.8)
[2025-01-20 07:33] LABS: BUN Creatinine Ratio 17.3 (10-20); Calcium 8.2 mg/dl (8.6-10.3); Creatinine Clr Calc Pharmacy 75.8 ml/min; Magnesium 1.5 mg/dl (1.7-2.4)
--- NOTE | 2025-01-20 08:48 | Surgery Progress Note ---
Date of Service January 20, 2025 Assessment & Plan (1) Acute diverticulitis: Plan: pt w/ diverticulitis with concern for small contained perforation with 1.7cm abscess wbc 5. vitals stable and patient afebrile abdomen soft, non tender. she denies any pain she has been advanced to low fiber. not much appetite but did eat some egg/toast for bfast She reports + BMs. Upon dispo recommend low fiber diet for 6-8 weeks. and will need sent home on course of 10-14days abx orally Dispo when cleared by medicine Admission and Anticipated Discharge Date Admission Date: January 16, 2025 Supervising Physician Co-Signing Physician Notes I have seen and examined this patient this am and I agree with this plan. She may be discharged on abx and a full liquid to low fiber diet with outpatient follow up to her PCP. May see GI for colonoscopy 8 weeks after discharge. Surgery will sign off at this time. Subjective Patient says she feels well. Denies abdominal pain. She is passing stool. No true nausea/vomiting but had some phlegm she coughed up this AM. Ate some eg gs/toast for bfast. Physical Exam Physical Exam: awake, no distress Gastrointestinal (Abdomen): Inspection/Auscultation: abdomen not distended Percussion/Palpation: abdomen soft; abdomen nontender Results & Data Vital Signs (Past 12 Hours) Vital Signs Temp Pulse Pulse Resp BP Pulse Ox O2 Del Method 01/20/25 07:24 98.1 F 63 18 122/69 94 Room Air 01/20/25 02:48 98.2 F 64 18 136/64 94 Room Air 01/19/25 23:20 63 01/19/25 23:00 98.8 F 64 16 135/73 94 Room Air PG Care Time/CCT Total # of Minutes Spent Total Time Spent with Patient: Total time spent is greater than 50% in coordination of care (as documented) at patient's floor/unit and/or counseling patient: Coding Level of Care Code 22242 SUB INP/OBS CARE 12/26MIN Diagnoses Acute diverticulitis K57.92
[2025-01-20] MEDS: MAGNESIUM SULFATE / D5W 1 GM/100 ML BAG IV SCH (10:28)
[2025-01-20] MEDS: POTASSIUM CHLORIDE CRTAB 20 MEQ TABCR PO STA (10:28)
--- NOTE | 2025-01-20 11:43 | Pharmacy Report ---
Pharmacy Glycemic Sign Off Nt - Date of Service January 20, 2025 - Assessment & Plan ASSESSMENT: * Pharmacy was consulted by Dr Kurtz on 01/06 for glycemic control and to write orders per [facility] inpatient glycemic control protocol. * Major changes made by pharmacy to antidiabetic regimen include: * added novolog scale * Patient has been receiving no insulin over the last 2 days PLAN FOR INPATIENT GLYCEMIC CONTROL: No changes needed to current regimen. * No basal insulin warranted * Continue NovoLog per scale ACHS/Q6hrs while NPO * Goal range = 110-140 mg/dl * CF = 40 mg/dl/unit * CR = 1 unit for ever 25 g CHO consumed * Pharmacy is signing off of glycemic consult and will no longer be making adjustments to inpatient regimen. Please feel free to re-consult if needed. Thank you.
[2025-01-20] MEDS: POTASSIUM CHLORIDE CRTAB 20 MEQ TABCR PO ONE (12:13)
--- NOTE | 2025-01-20 12:40 | Hospitalist Progress Note ---
Date of Service January 20, 2025 Assessment & Plan (1) Acute diverticulitis: Plan: per previous hospitalist notes with addendum: 79-year-old female with history of diabetes type 2, hypertension, dyslipidemia, CKD stage III presenting with vomiting. She reported she has been having occasional nausea and vomiting but got severe on day of admission Acute diverticulitis, possible abscess CT abdomen pelvis noted sigmoid diverticulitis with concern for developing abscess. No armando peritoneal free air. Gen surg evaluated and noted no defined abscess or free perforation Continue ciprofloxacin and flagyl Tolerating diet Antiemetic prn 01/20 afebrile no abdominal pain, tenderness continue IV Cipro + Flagyl appreciate Gen Surg recommendations Dysphagia, Weight Loss mostly with solids lost 60 lbs for the past 6 mos Barium swallow ordered Speech Therapy eval diet changed to full liquid for now Boost TID will consult Skill Labor NSTEMI type II Patient's trop was elevated 2541 ->>[id number] TTE showed mild conc LVH, EF 55-60%, normal RV size and function, G I DD, mild AV sclerosis Card recs noted Completed 48h of heparin drip Started on ASA 81mg, metoprolol succinate 12.5mg daily and her home simvastatin changed to atorvastatin 20mg daily per Cards no cardiac symptoms Acute kidney injury, on CKD stage III Likely prerenal etiology secondary to dehydration Baseline 0.8, Cr was 2.0 on admission LENO resolved Replete hypomagnesemia and hypophosphatemia Back pain, left hip pain, rule out fracture Recent fall, January 06, 2025 Vitamin D deficiency Fell after getting up from kitchen chair, felt dizzy, landed on her buttocks Lumbar CT showing acute to subacute compression fracture of superior plate of T12 with 20% loss of vertebrate height. Ortho spine recs noted Vit D level 12.3. Started on Vit D [id number] weekly Awaiting PT/OT Diabetes type 2 Hold Jardiance, metformin Insulin sliding scale Hypertension Home irbesartan on hold on admission due to LENO BP stable. Plan to resume on dc DVT prophylaxis: Hep sq CODE STATUS Full code as per patient plan of care discussed with patient and her , her daughter in detail and at length all questions answered they are understanding, agreeable, comfortable with the plan of care Admission and Anticipated Discharge Date Admission Date: January 16, 2025 Subjective ff up for acute diverticulitis with possible abscess and perforation, etc seen resting in bed, comfortable in good spirits patient's family at bedside visiting states she has no abdominal pain has occasional nausea reports difficulty swallowing mostly solids for about 6 months now 60lb weight loss in about 6 mos as per jenny (+) loose BM, x 2, non bloody no other symptoms Review of Systems Review of Systems: all noted and negative except for above Physical Exam Physical Exam: General- oriented x 3, not in distress, speaks in sentences with no effort or accessory muscle use Eyes- anicteric Neck- no JVD Lungs- clear breath sounds bilaterally, no rales/wheezes Heart- normal rate, regular rhythm; no murmurs Abdomen- normal bowel sounds, nondistended, soft, nontender Extremities- no pretibial edema, no calf tenderness Neuro- alert, oriented x 3; no gross focal neurologic deficits Skin- warm & dry Results & Data Results & Data Vital Signs (Past 12 Hours) Vital Signs Temp Pulse Resp BP Pulse Ox O2 Del Method 01/20/25 10:57 36.6 C 62 18 120/77 96 Room Air 01/20/25 07:24 36.7 C 63 18 122/69 94 Room Air 01/20/25 02:48 36.8 C 64 18 136/64 94 Room Air all noted and reviewed including below
[2025-01-20] MEDS: PANTOprazole 40 MG/10 ML SYR IV SCH (19:46)
[2025-01-21 06:52] LABS: BUN Creatinine Ratio 15.4 (10-20); Calcium 8.1 mg/dl (8.6-10.3); Creatinine Clr Calc Pharmacy 75.8 ml/min; Magnesium 1.8 mg/dl (1.7-2.4); Potassium 3.4 mmol/L (3.5-5.1)
--- NOTE | 2025-01-21 15:32 | Fluoroscopy Report ---
FL barium swallow CLINICAL HISTORY: dysphagia COMPARISON STUDY: None TECHNIQUE: The patient was given a barium mixture to drink with fluoroscopic observation a rapid sequ ence filming. FINDINGS: There is no hesitancy with deglutition. No esophageal mass or stricture. There is mild, non obstructive distal esophageal dysmotility manifested by intermittent tertiary contractions. IMPRESSION: Mild esophageal dysmotility; otherwise negative study. ACT 112: Negative or not required by law. Electronically signed by: Jen Tian M.D. 01/21/2025 3:31 PM
--- NOTE | 2025-01-21 18:50 | Hospitalist Progress Note ---
Date of Service January 21, 2025 delayed entry date of service noted above Assessment & Plan (1) Acute diverticulitis: Plan: per previous hospitalist notes with addendum: 79-year-old female with history of diabetes type 2, hypertension, dyslipidemia, CKD stage III presenting with vomiting. She reported she has been having occasional nausea and vomiting but got severe on day of admission Acute diverticulitis, possible abscess CT abdomen pelvis noted sigmoid diverticulitis with concern for developing abscess. No armando peritoneal free air. Gen surg evaluated and noted no defined abscess or free perforation Continue ciprofloxacin and flagyl Tolerating diet Antiemetic prn 01/20 afebrile no abdominal pain, tenderness continue IV Cipro + Flagyl appreciate Gen Surg recommendations 01/21 stable continue abx Dysphagia, Weight Loss mostly with solids lost 60 lbs for the past 6 mos Barium swallow ordered Speech Therapy eval diet changed to full liquid for now Boost TID will consult [employer] 01/21 awaiting Ba swallow and Speech Eval NSTEMI type II Patient's trop was elevated 2541 ->>[id number]->[id number] TTE showed mild conc LVH, EF 55-60%, normal RV size and function, G I DD, mild AV sclerosis Card recs noted Completed 48h of heparin drip Started on ASA 81mg, metoprolol succinate 12.5mg daily and her home simvastatin changed to atorvastatin 20mg daily per Cards no cardiac symptoms Acute kidney injury, on CKD stage III Likely prerenal etiology secondary to dehydration Baseline 0.8, Cr was 2.0 on admission LENO resolved Replete hypomagnesemia and hypophosphatemia Hypo K and Mg Back pain, left hip pain, rule out fracture Recent fall, January 06, 2025 Vitamin D deficiency 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 Ortho spine recs noted Vit D level 12.3. Started on Vit D [id number] weekly Awaiting PT/OT Diabetes type 2 Hold Jardiance, metformin Insulin sliding scale Hypertension Home irbesartan on hold on admission due to LENO BP stable. Plan to resume on dc DVT prophylaxis: Hep sq CODE STATUS Full code as per patient plan of care discussed with patient and her , her daughter in detail and at length all questions answered they are understanding, agreeable, comfortable with the plan of care Admission and Anticipated Discharge Date Admission Date: January 16, 2025 Subjective ff up for acute diverticulitis etc seen resting in bed, comfortable states she feels fine overall no abdominal pain no problems with swallowing no chest pain, dyspnea, palpitations, dizziness no other symptoms Review of Systems Review of Systems: all noted and negative except for above Physical Exam Physical Exam: General- oriented x 3, not in distress, speaks in sentences with no effort or accessory muscle use Eyes- anicteric Neck- no JVD Lungs- clear breath sounds bilaterally, no rales/wheezes Heart- normal rate, regular rhythm; no murmurs Abdomen- normal bowel sounds, nondistended, soft, nontender Extremities- no pretibial edema, no calf tenderness Neuro- alert, oriented x 3; no gross focal neurologic deficits Skin- warm & dry Results & Data Results & Data Vital Signs (Past 12 Hours) Vital Signs Temp Pulse Pulse Resp BP Pulse Ox O2 Del Method 01/21/25 15:40 36.8 C 77 16 135/62 98 Room Air 01/21/25 15:00 77 01/21/25 11:30 36.6 C 87 18 125/60 97 Room Air 01/21/25 08:00 Room Air 01/21/25 08:00 36.7 C 70 108/56 L 01/21/25 07:00 57 L all noted and reviewed including below
[2025-01-21] MEDS: metroNIDAZOLE 500 MG TAB PO SCH (21:40)
[2025-01-22 09:12] VITALS: BP 127/74; RESP 18; TEMP 98.6; O2SAT 95
[2025-01-22] MEDS: CIPROFLOXACIN 500 MG TAB PO SCH (09:14)
[2025-01-22 10:56] LABS: BUN Creatinine Ratio 18.2 (10-20); Calcium 8.3 mg/dl (8.6-10.3); Creatinine Clr Calc Pharmacy 71.6 ml/min; Magnesium 1.5 mg/dl (1.7-2.4)
[2025-01-22 12:36] VITALS: PULSE 77
[2025-01-22] MEDS: MAGNESIUM OXIDE 400 MG TAB PO SCH (13:18)
[2025-01-22] MEDS: POTASSIUM CHLORIDE CRTAB 20 MEQ TABCR PO STA (13:18)
--- NOTE | 2025-01-24 17:44 | Discharge Summary ---
Discharge Summary Date of Service January 24, 2025 delayed entry date of service 01/22/25 Principal Dx & Hospital Course #1 = Principal Diagnosis (1) Acute diverticulitis: per previous hospitalist notes with addendum: 79-year-old female with history of diabetes type 2, hypertension, dyslipidemia, CKD stage III presenting with vomiting. She reported she has been having occasional nausea and vomiting but got severe on day of admission Acute diverticulitis, possible abscess CT abdomen pelvis noted sigmoid diverticulitis with concern for developing abscess. No armando peritoneal free air. There is a left ovarian cyst measuring 4.0 x 2.9 cm. Gen surg evaluated and noted no defined abscess or free perforation given ciprofloxacin and flagyl Tolerating diet Antiemetic prn 01/20 afebrile no abdominal pain, tenderness continue IV Cipro + Flagyl appreciate Gen Surg recommendations 01/21 stable continue abx 01/22 continue Cipro + Flagyl to complete 14 day course will need outpatient Colonoscopy 8 weeks after discharge ff up ovarian cyst seen on CT abd Dysphagia, Weight Loss mostly with solids lost 60 lbs for the past 6 mos Barium swallow ordered Speech Therapy eval diet changed to full liquid for now Boost TID will consult [employer] 01/21 awaiting Ba swallow and Speech Eval 01/22 Barium swallow: Mild esophageal dysmotility; otherwise negative study. Speech Tx: no signs of aspiration patient denies problems with swallowing on the day of discharge Further work up, management, and ff up as outpatient NSTEMI type II Patient's trop was elevated [id number] -[id number] -Echocardiogram reviewed. Demonstrates mild concentric LVH, normal LVEF 55-60%, normal wall motion, grade I diastolic dysfunction. Mild aortic valve sclerosis without stenosis. Card recs noted Completed 48h of heparin drip Started on ASA 81mg, metoprolol succinate 12.5mg daily and her home simvastatin changed to atorvastatin 20mg daily per Cards Discussed follow up outpatient with cardiology and plan for a nuclear stress test Acute kidney injury, on CKD stage III Likely prerenal etiology secondary to dehydration Baseline 0.8, Cr was 2.0 on admission LENO resolved Repleted hypomagnesemia and hypophosphatemia - repeat K and Mg on ff up with PCP Back pain, left hip pain, rule out fracture Recent fall, January 06, 2025 Vitamin D deficiency Age-related osteoporosis with current pathologic fracture, T12 vertebra, subsequent encounter (was previously at [facility] ER) Fell after getting up from kitchen chair, felt dizzy, landed on her buttocks Lumbar CT showing acute to subacute compression fracture of superior plate of T12 with 20% loss of vertebrate height. Ortho spine recs noted Vit D level 12.3. Started on Vit D 61110M weekly, repeat Vit D level in 6-[address] head findings Mild periventricular white matter hypodensities are most consistent with chronic microangiopathy. There is encephalomalacia of the right temporal lobe and right cerebellum. Ventricles: Unremarkable. No ventriculomegaly. Bones/joints: Unremarkable. No skull fracture. Soft tissues: Unremarkable. Sinuses: There is fluid in the left maxillary sinus. Mastoid air cells: Large right mastoid effusion. IMPRESSION: 1. No acute intracranial finding. 2. There is fluid in the left maxillary sinus. This could relate to sinusitis or nonvisualized maxillary fracture. 3. Large right mastoid effusion. Please refer to full report in the Ordered Studies section Further work up, management, and ff up as outpatient Diabetes type 2 Jardiance, metformin Hypertension BP stable off Irbesartan monitor as outpatient DVT prophylaxis: Hep sq CODE STATUS Full code as per patient Notes For Next Care Provider Medication Changes From Visit Ciprofloxacin, metronidazole-antibiotic for acute diverticulitis Aspirin, metoprolol-to prevent heart attack Atorvastatin-for control of cholesterol Potassium, magnesium supplements-for low potassium and magnesium Vitamin D supplement-for low vitamin D Stop irbesartan, simvastatin. Admission HPI Per Admitting Provider 79-year-old female with history of diabetes type 2, hypertension, dyslipidemia, CKD stage III presenting with lower abdominal pain and vomiting which started this morning. Last January 06, 2025, patient had a fall after turning around to get up in her kitchen chair, landing on her buttocks. No loss of consciousness noted. Patient was seen at an outside hospital ER. She is not aware of any fractures seen during that time. Patient reports that she has been having low back pain and left hip pain since that incident. Today, patient started to have lower abdominal discomfort, associated with multiple episodes of vomiting-nonbloody. She denies having fevers or chills. At the ER, patient received with multiple stable vital signs overall. CT abdomen and pelvis showed diverticulitis with perforation, possible developing abscess. She was given IV Zosyn, NSS, Zofran and famotidine. Creatinine was also found to be 2.0, and troponin level 2541 with EKG showing no signs of acute ischemia. On exam, patient seen resting in bed, with his later at the bedside. She has some mild lower abdominal discomfort, and left hip pain. She denies having active shortness of breath, chest pain, palpitations, dizziness. No other new symptoms. Admission Exam Per Admitting Provider General- oriented x 3, not in distress, speaks in sentences with no effort or accessory muscle use Head- atraumatic Eyes- PERRL, EOMI, anicteric Absent right ear, status post surgery ENT- oropharynx clear Neck- supple, no JVD, no adenopathy, no thyromegaly; carotids +2/2, no bruits appreciated Lungs- clear to auscultation bilaterally, no rales/wheezes Heart- normal rate, regular rhythm; no murmur, no gallop, no rub appreciated Abdomen- normal bowel sounds, nondistended, soft, Very mild lower quadrant, b ilateral tenderness, no masses or hepatosplenomegaly Extremities- no pretibial edema, no calf tenderness; peripheral pulses intact Neuro- alert, oriented x 3; CN 2-12 grossly intact; motor 5/5 bilat erally;sensation 100% on all extremities; no other gross focal neurologic deficits Skin- warm & dry Discharge Exam General- oriented x 3, not in distress, speaks in sentences with no effort or accessory muscle use Eyes- anicteric Neck- no JVD Lungs- clear breath sounds bilaterally, no rales/wheezes Heart- normal rate, regular rhythm; no murmurs Abdomen- normal bowel sounds, nondistended, soft, nontender Extremities- no pretibial edema, no calf tenderness Neuro- alert, oriented x 3; no gross focal neurologic deficits Skin- warm & dry Updated Medication List Medication Instructions Recorded Confirmed Type metformin 1,000 mg tablet 1,000 mg PO BID ##0 11/18/17 01/16/25 History calcitonin (salmon) 200 1 spray intranasal DIRECTED 01/16/25 01/16/25 History unit/actuation nasal spray empagliflozin 10 mg tablet 10 mg PO DAILY 01/16/25 01/16/25 History (Jardiance) oxycodone-acetaminophen 5 mg-325 1 tab PO Q6H PRN Pain 01/16/25 01/16/25 History mg tablet aspirin 81 mg tablet,delayed 81 mg PO QAM 30 days #30 tabs 01/22/25 Rx release atorvastatin 20 mg tablet 20 mg PO QAM 30 days #30 tabs 01/22/25 Rx ciprofloxacin HCl 500 mg tablet 500 mg PO BID 7 days #14 tabs 01/22/25 Rx ergocalciferol (vitamin D2) 1,250 1,250 mcg PO Q7D #8 caps 01/22/25 Rx mcg (50,000 unit) capsule magnesium oxide 400 mg (241.3 mg 400 mg PO BID 7 days #14 tabs 01/22/25 Rx magnesium) tablet metoprolol succinate 25 mg 12.5 mg (1/2 x 25 mg) PO QAM 30 01/22/25 Rx tablet,extended release 24 hr days #15 tabs metronidazole 500 mg tablet 500 mg PO TID 7 days #21 tabs 01/22/25 Rx potassium chloride 10 mEq 40 meq (4 x 10 mEq) PO DAILY 7 01/22/25 Rx tablet,extended release days #28 tabs Hospital Stay Data Consultations 01/16/25 14:50 ED Decision to Admit Stat 01/16/25 19:47 Consult General Surgery Routine 01/17/25 12:17 Consult Cardiology Routine 01/17/25 16:14 Consult Orthopedic Spine Surgery Routine Diagnostic Imagining Performed Laboratory Results WBC 5.53 K/ul (4.8-10.8) 01/20/25 06:20 RBC 4.42 M/uL (4.20-5.40) 01/20/25 06:20 Hgb 12.4 g/dl (12.0-16.0) 01/20/25 06:20 Hct 36.9 % (37.0-47.0) L 01/20/25 06:20 MCV 83.5 fL (80.0-100.0) 01/20/25 06:20 MCH 28.1 pg (25.0-34.0) 01/20/25 06:20 MCHC 33.6 g/dL (32.0-36.0) 01/20/25 06:20 RDW Std Deviation 45.2 fL (36.4-46.3) 01/20/25 06:20 RDW Coeff of Joan 15.0 % (11.5-14.5) H 01/20/25 06:20 Plt Count 271 K/uL (130-400) 01/20/25 06:20 MPV 9.1 fL (9.4-12.4) L 01/20/25 06:20 Immature Gran % (Auto) 0.6 % 01/17/25 07:55 Neut % (Auto) 79.5 % 01/17/25 07:55 Lymph % (Auto) 8.6 % 01/17/25 07:55 Throckmorton % (Auto) 10.5 % 01/17/25 07:55 Eos % (Auto) 0.4 % 01/17/25 07:55 Baso % (Auto) 0.4 % 01/17/25 07:55 Neut # (Auto) 5.77 K/uL (1.40-6.50) 01/17/25 07:55 Lymph # (Auto) 0.62 K/uL (1.20-3.40) L 01/17/25 07:55 Throckmorton # (Auto) 0.76 K/uL (0.11-0.59) H 01/17/25 07:55 Eos # (Auto) 0.03 K/uL (0.00-0.50) 01/17/25 07:55 Baso # (Auto) 0.03 K/uL (0.00-0.20) 01/17/25 07:55 Immature Gran # (Auto) 0.04 K/uL (0.01-0.20) 01/17/25 07:55 Heparin Anti-Xa, Unfract 0.43 IU/ml (0.3-0.7) 01/18/25 06:20 Sodium 138 mmol/L (136-145) 01/22/25 10:11 Potassium 3.0 mmol/L (3.5-5.1) L 01/22/25 10:11 Chloride 107 mmol/L (98-107) 01/22/25 10:11 Carbon Dioxide 25 mmol/L (21-32) 01/22/25 10:11 Anion Gap 6 (3-11) 01/22/25 10:11 BUN 10 mg/dl (6-23) 01/22/25 10:11 Creatinine 0.55 mg/dl (0.6-1.2) L 01/22/25 10:11 Est Cr Clr Drug Dosing 71.6 ml/min 01/22/25 10:11 eGFR 93.18 01/22/25 10:11 BUN/Creatinine Ratio 18.2 (10-20) 01/22/25 10:11 Glucose 165 mg/dl (70-99(Fasting)) H 01/22/25 10:11 POC Glucose 106 mg/dl (70-99) H 01/22/25 07:19 Estimat Average Glucose 157 mg/dl 01/17/25 07:55 Hemoglobin A1c 7.1 % (4.5-5.6) H 01/17/25 07:55 Calcium 8.3 mg/dl (8.6-10.3) L 01/22/25 10:11 Phosphorus 3.0 mg/dl (2.5-4.9) D 01/20/25 06:20 Magnesium 1.5 mg/dl (1.7-2.4) L 01/22/25 10:11 Total Bilirubin 0.4 mg/dl (0.2-1.0) 01/16/25 11:34 AST 30 U/L (13-39) 01/16/25 11:34 ALT 11 U/L (7-52) 01/16/25 11:34 Alkaline Phosphatase 71 U/L (34-104) 01/16/25 11:34 Troponin I High Sens 2459.5 pg/ml (0-14) H* D 01/17/25 12:41 Total Protein 7.1 gm/dl (6.0-8.3) 01/16/25 11:34 Albumin 3.5 gm/dl (3.4-5.0) 01/16/25 11:34 Globulin 3.6 gm/dl (2.5-4.0) 01/16/25 11:34 Albumin/Globulin Ratio 1.0 (0.9-2) 01/16/25 11:34 Lipase 6 U/L (11-82) L 01/16/25 11:34 25-OH Vitamin D Total 12.3 ng/ml (30-100) L 01/18/25 06:20 Procalcitonin 47.50 ng/ml (0-0.5) H 01/16/25 11:34 Urine Color Yellow 01/17/25 01:32 Urine Appearance Clear (Clear) 01/17/25 01:32 Urine pH 5.0 (4.5-7.5) 01/17/25 01:32 Ur Specific [place] 1.024 (1.000-1.030) 01/17/25 01:32 Urine Protein Trace (Negative) H 01/17/25 01:32 Urine Glucose (UA) 3+ (Negative) H 01/17/25 01:32 Urine Ketones Trace (Negative) H 01/17/25 01:32 Urine Blood Negative (Negative) 01/17/25 01:32 Urine Nitrite Negative (Negative) 01/17/25 01:32 Urine Bilirubin Negative (Negative) 01/17/25 01:32 Urine Urobilinogen Negative (Negative) 01/17/25 01:32 Ur Leukocyte Esterase 2+ (Negative) H 01/17/25 01:32 Urine WBC (Auto) 21-50 /hpf (0-5) H 01/17/25 01:32 Urine RBC (Auto) 0-2 /hpf (0-2) 01/17/25 01:32 U Hyaline Cast (Auto) 0-2 /lpf (0-2) 01/17/25 01:32 U Epithel Cells (Auto) 3-5 /hpf (0-2) H 01/17/25 01:32 Urine Bacteria (Auto) None Seen (None Seen) 01/17/25 01:32 Adenovirus (PCR) Not Detected (NotDetected) 01/16/25 11:18 B. pertussis DNA (PCR) Not Detected (NotDetected) 01/16/25 11:18 B.parapertussis DNA PCR Not Detected (NotDetected) 01/16/25 11:18 C. pneumoniae DNA (PCR) Not Detected (NotDetected) 01/16/25 11:18 Coronavirus OC43 (PCR) Not Detected (NotDetected) 01/16/25 11:18 Coronavirus HKU1 (PCR) Not Detected (NotDetected) 01/16/25 11:18 Coronavirus 229E (PCR) Not Detected (NotDetected) 01/16/25 11:18 SARS-CoV-2 (PCR) NEGATIVE (Negative) 01/16/25 11:18 SARS-CoV-2 (PCR) Not Detected (NotDetected) 01/16/25 11:18 Coronavirus NL63 (PCR) Not Detected (NotDetected) 01/16/25 11:18 Human Metapneumovir PCR Not Detected (NotDetected) 01/16/25 11:18 Influenza Type A (PCR) Negative (Neg) 01/16/25 11:18 Influenza Type A (PCR) Not Detected (NotDetected) 01/16/25 11:18 Influenza Type B (PCR) Negative (Neg) 01/16/25 11:18 Influenza Type B (PCR) Not Detected (NotDetected) 01/16/25 11:18 M. pneumoniae (PCR) Not Detected (NotDetected) 01/16/25 11:18 Parainfluenza 1 (PCR) Not Detected (NotDetected) 01/16/25 11:18 Parainfluenza 2 (PCR) Not Detected (NotDetected) 01/16/25 11:18 Parainfluenza 3 (PCR) Not Detected (NotDetected) 01/16/25 11:18 Parainfluenza 4 (PCR) Not Detected (NotDetected) 01/16/25 11:18 RSV (RT-PCR) Negative (Neg) 01/16/25 11:18 RSV (PCR) Not Detected (NotDetected) 01/16/25 11:18 Entero/Rhino (PCR) Not Detected (NotDetected) 01/16/25 11:18 Impressions Chest X-Ray 01/16/25 11:46 XR chest 1V portable CLINICAL HISTORY: Nausea and vomiting. COMPARISON STUDY: Chest CT July 31, 2013. Chest radiograph January 29, 2017. FINDINGS: Lung volumes are normal. There is no consolidation to suggest pneumonia. Left lower lung densities favor scarring. These are similar to prior exam. There is no pneumothorax or pleural effusion. Cardiomegaly is unchanged. Mediastinal contours are normal. There is no evidence for pulmonary edema. IMPRESSION: No acute cardiopulmonary findings. No change in appearance of the chest. ACT 112: Negative or not required by law. Electronically signed by: Carlos Lind M.D. 01/16/2025 12:57 PM KUB X-Ray 01/16/25 11:46 KUB CLINICAL HISTORY: Nausea and vomiting. COMPARISON STUDY: CT of the abdomen and pelvis January 07, 2014. FINDINGS: The bowel gas pattern is normal. Mild lumbar spine levoscoliosis is incidentally noted. No urinary calculi are identified. The amount of stool is within normal limits. IMPRESSION: No evidence for a bowel obstruction. ACT 112: Negative or not required by law. Electronically signed by: Carlos Lind M.D. 01/16/2025 1:00 PM Abdomen/Pelvis CT 01/16/25 12:51 EXAMINATION: CT of the abdomen and pelvis performed after the administration of IV contrast TECHNIQUE: Helical CT images from the lung bases through the symphysis pubis were obtained with contrast. Coronal and sagittal reformatted images were generated at a workstation for further assessment. Dose reduction techniques were achieved by using automatic exposure control and/or adjustment of mA and/or kV according to patient size and/or use of iterative reconstruction technique. COMPARISON: None HISTORY: Abdominal pain FINDINGS: Lower chest: No consolidation. No pleural effusion or pneumothorax. Liver: No suspicious liver lesions. Portal veins appear patent. Gallbladder: There is a small calcified gallstone. The gallbladder is distended, with a diameter of up to 4.0 cm. No significant inflammatory change. Spleen: Normal size. Pancreas: No suspicious pancreatic lesions. The pancreatic duct is not dilated. Adrenal glands: No adrenal nodules. Kidneys: No hydronephrosis or obstructing renal stones. Bladder / Pelvic organs: There is a left ovarian cyst measuring 4.0 x 2.9 cm. The uterus is present, containing small fibroids.. Bowel: No bowel obstruction. Extensive inflammatory change noted along the length of the sigmoid colon, as well as significant bowel wall thickening and edema. Posterior to the proximal aspect of the sigmoid colon as seen on series 6 image 243, is an ovoid thin rimmed collection containing fluid and a few foci of air measuring 17 x 9 mm. The appendix is unremarkable. Lymph nodes: No retroperitoneal, mesenteric, or pelvic lymphadenopathy. Peritoneum / Retroperitoneum: No free fluid or air within the abdomen. Vessels: No infrarenal aortic aneurysm. Bones and soft tissues: No suspicious lesion in the bones. IMPRESSION: Extensive inflammatory change and prominent wall thickening and edema along the length of the sigmoid colon, associated with numerous diverticula, and evidence of diverticulitis. A small, contained perforation appears to be seen about the posterior aspect of the proximal sigmoid:, Concerning for developing abscess. No armando peritoneal free air. Electronically signed by Jitendra Taylor 01-16-2025 2:08 PM Chest CTA 01/16/25 12:51 CT pulmonary angiogram with IV contrast History: Chest pain COMPARISON: None TECHNIQUE: CT angiography of the chest was performed without IV contrast followed by IV contrast, including 3D post processing CTA image reconstruction. Dose reduction techniques were achieved by using automatic exposure control and/or adjustment of mA and/or kV according to patient size and/or use of iterative reconstruction technique. FINDINGS: Diagnostic quality: Adequate There is no evidence for pulmonary embolism. The heart is not enlarged. There is no pericardial effusion. There are no abnormally enlarged hilar or mediastinal lymph nodes. The central tracheobronchial tree is clear. Mild scattered bandlike atelectasis in the mid lungs and lung bases, as well as the medial right lung apex. There is diffuse mosaic attenuation of the lungs. There is no pleural effusion. Limited visualized upper abdomen. No destructive osseous changes are seen. IMPRESSION: No evidence for pulmonary embolism. Mosaic attenuation of the lungs which may be seen with small airway or small vessel disease. Electronically signed by Jitendra Taylor 01-16-2025 2:08 PM Lumbar Spine X-Ray 01/16/25 16:58 HISTORY: Back pain. TECHNIQUE: Lumbar spine, 3 views. COMPARISON: CT the abdomen pelvis from the same day (01/16/2025). FINDINGS: Lumbar levoscoliosis. Grade 1 anterolisthesis of L3 on L4 measuring 0.3 cm.There is mild compression deformity involving the superior endplate of T12 with approximately 10% anterior vertebral body height loss. Mild multilevel degenerative disc disease. Lower lumbar facet arthrosis. Contrast within the urinary bladder. IMPRESSION: 1. Compression fracture involving the superior endplate of T12 with approximately 10% anterior vertebral body height loss is age indeterminant and could be acute.Further evaluation is recommended with CT or MRI of the lumbar spine. 2. Moderate degenerative spondylosis of the lumbar spine. 3. Lumbar levoscoliosis. 4. Grade 1 anterolisthesis of L3 on L4 measuring 0.3 cm. Electronically signed by Aquilino Hansen 01-16-2025 8:34 PM Hip/Pelvis X-Ray 01/16/25 19:47 Exam(s): XR BILATERAL HIP + PELVIS, 2-3 views EXAM: XR Bilateral Hips With Pelvis When Performed, 2 or 3 Views CLINICAL HISTORY: Fall TECHNIQUE: Three or four views of the bilateral hips with pelvis when performed. COMPARISON: No relevant prior studies available. FINDINGS: Bones/joints: Moderate degenerative changes both hips. No acute fracture. No dislocation. Soft tissues: Unremarkable. IMPRESSION: No acute findings in the bilateral hips. Electronically signed by: Nichole Abdul MD 01/17/25 00:[address] 01/16/25 19:59 Exam(s): CT HEAD Without Contrast EXAM: CT Head Without Intravenous Contrast CLINICAL HISTORY: Injury TECHNIQUE: Axial computed tomography images of the head/brain without intravenous contrast. CTDI is 38 mGy and DLP is 546 mGy-cm. Automated exposure control was utilized for the study. A dose lowering technique was utilized adhering to the principles of ALARA. COMPARISON: MRI brain 01/21/2017. FINDINGS: Brain: No intracranial hemorrhage, mass-effect or midline shift. No abnormal extra axial fluid. No evidence of acute infarct. Mild periventricular white matter hypodensities are most consistent with chronic microangiopathy. There is encephalomalacia of the right temporal lobe and right cerebellum. Ventricles: Unremarkable. No ventriculomegaly. Bones/joints: Unremarkable. No skull fracture. Soft tissues: Unremarkable. Sinuses: There is fluid in the left maxillary sinus. Mastoid air cells: Large right mastoid effusion. IMPRESSION: 1. No acute intracranial finding. 2. There is fluid in the left maxillary sinus. This could relate to sinusitis or nonvisualized maxillary fracture. 3. Large right mastoid effusion. Electronically signed by: Nichole Abdul MD 01/16/25 22:[address] 01/17/25 12:42 CT lumbar spine w con CLINICAL HISTORY: For better assessment of findings on lumbar XR COMPARISON STUDY: Lumbar spine radiographs January 16, 2025. CT of the abdomen and pelvis January 07, 2014. TECHNIQUE: Axial images of the lumbar spine were obtained following intravenous injection of Optiray 320 IV. Sagittal and coronal reformats were viewed. Automated exposure control was utilized for the study. A dose lowering technique was utilized adhering to the principles of ALARA. FINDINGS: For purposes of numbering on this exam, the L5-S1 disc space is assigned to axial image 351 of 401. There is mild lumbar spine levoscoliosis. No lumbar spine fractures are present. Vertebral body heights within the lumbar spine are preserved. There is severe multilevel facet arthrosis. There is mild to moderate multilevel degenerative disc disease. The central canal and neural foramen are suboptimally assessed given CT technique. There is a compression fracture of the superior endplate of T12. There is no retropulsion. There is 20% loss of vertebral body height. No additional fractures are identified on this examination. 3 cm right adrenal nodule was present on CT of January 07, 2014. This is likely benign. Sigmoid diverticulitis with associated inflammation is better depicted on the abdominal CT which will be reported separately. IMPRESSION: 1. Acute to subacute mild compression fracture of the superior plate of T12 with 20% loss of vertebral body height. No retropulsion. 2. No lumbar spine fractures. 3. Moderate multilevel degenerative changes within lumbar spine. Suboptimal evaluation of the central canal and neural foramen given CT technique. ACT 112: Negative or not required by law. Electronically signed by: Carlos Lind M.D. 01/17/2025 1:15 PM Barium Swallow X-Ray 01/21/25 13:00 FL barium swallow CLINICAL HISTORY: dysphagia COMPARISON STUDY: None TECHNIQUE: The patient was given a barium mixture to drink with fluoroscopic observation a rapid sequence filming. FINDINGS: There is no hesitancy with deglutition. No esophageal mass or stricture. There is mild, nonobstructive distal esophageal dysmotility manifested by intermittent tertiary contractions. IMPRESSION: Mild esophageal dysmotility; otherwise negative study. ACT 112: Negative or not required by law. Electronically signed by: Jen Tian M.D. 01/21/2025 3:31 PM Pending Results Patient Have Any Pending Studies at Discharge: No Discharge Instructions Given to Patient (Per Discharging Provider) PLEASE REFER TO YOUR NEW MEDICATION LIST AND FOLLOW INSTRUCTIONS CAREFULLY. YOUR NEW MEDICATIONS INCLUDE: Ciprofloxacin, metronidazole-antibiotic for acute diverticulitis Aspirin, metoprolol-to prevent heart attack Atorvastatin-for control of cholesterol Potassium, magnesium supplements-for low potassium and magnesium Vitamin D supplement-for low vitamin D Stop irbesartan, simvastatin. Please take a probiotic daily for at least 1 month. Stay with low fiber, soft diet X 2 months. Always take aspirin with a full stomach. PLEASE CALL YOUR PRIMARY CARE PHYSICIAN OR RETURN TO THE ER IF WITH WORSENING OF SYMPTOMS, INCLUDING Abdominal pain, nausea vomiting, fevers or chills, black stools, blood in your stools, fevers or chills,Etc. Chest pain, shortness of breath, palpitations, dizziness, etc. You need to have a colonoscopy after 2 months. Your primary care physician can assist with arranging this for you. FOLLOW UP WITH PRIMARY CARE PHYSICIAN OUTLINED ABOVE. Total Time Total Time Spent Total Time Spent (In Minutes): 50 minutes
== END 2025-01-22 13:19 | disposition home or self-care (01) | DRG 391 ==
LOC: ED 10:56 → EDINP 16:30 → SUATTDRO 16:30 → 2S 19:47